=== PATIENT | female | born 1940 | race Caucasian/White ===

== ENCOUNTER 2022-01-18 14:04 | Outpatient (CLI) | payer MEDICARE, SELFPAY ==
--- NOTE | ~2022-01-18 | MM_ITS ---
EXAMINATION: MM screening michelle BI w kristine HISTORY: Screening TECHNIQUE: Craniocaudal and mediolateral oblique 3-D tomosynthesis images were obtained and synthetic 2-D images were generated. CAD analysis was submitted and interpreted. COMPARISON: 08/19/2019 BREAST PARENCHYMAL COMPOSITION: There are scattered areas of fibroglandular density. FINDINGS: There is no evidence of suspicious mass, calcification, or architectural distortion to sugg est malignancy in either breast. There has been no suspicious interval change. IMPRESSION: 1. No mammographic evidence of malignancy. 2. Recommend routine screening mammography in one year. BI-RADS Category 1: Negative Reviewed, dictated and finalized at location A. [facility]
== END 2022-01-18 14:05 | disposition home or self-care (01) ==
LOC: ANHIMG 14:05
PROVIDERS: PCP Internal Medicine; Visit Provider Clinical Nurse Specialist
DX: Z12.31 Encounter for screening mammogram for malignant neoplasm of breast (principal)
CPT/HCPCS: 77063; 77067

== ENCOUNTER 2023-03-12 08:46 | Outpatient (CLI) | payer MEDICARE, SELFPAY ==
[2023-03-12 15:12] LABS: Basophils Absolute Auto 0.1 K/mm3 (0.0-0.1); Basophils Percent Auto 0.9 % (0.2-1.2); Eosinophils Absolute Auto 0.3 K/mm3 (0-0.3); Eosinophils Percent Auto 3.2 % (0-4.4); Hemoglobin 14.5 g/dL (12.0-15.0); Immature Granulocyte Absolute 0.03 K/mm3 (0.00-0.031); Immature Granulocyte Percent A 0.4 % (0-0.5); Lymphocytes Absolute Auto 1.95 K/mm3 (0.9-3.2); Lymphocytes Percent Auto 25.2 % (18.3-44.2); Mean Corpuscular HGB Conc 30.9 g/dl (32-36); Mean Corpuscular Volume 100.4 fl (80-100); Mean Platelet Volume 12.1 fl (7.4-10.4); Monocytes Absolute Auto 0.9 K/mm3 (0.1-0.6); Monocytes Percent Auto 11.5 % (2.6-8.5); Neutrophils Absolute Auto 4.6 K/mm3 (1.3-6.7); Neutrophils Percent Auto 58.8 % (45.5-73.1); Platelet Count Result 255 k/mm3 (150-375); Red Blood Count 4.68 M/mm3 (4.2-5.4); Red Cell Distribution Width 14.1 % (11.5-14.5); White Blood Count 7.7 K/mm3 (4.5-10.0)
[2023-03-12 15:17] LABS: Alanine Aminotransferase 13 U/L (6-35); Albumin Level 4.4 g/dL (3.5-5.1); Alkaline Phosphatase 112 U/L (38-126); Anion Gap 7 mmol/L (8-16); Aspartate Amino Transferase 38 U/L (14-36); Bilirubin,Total 0.7 mg/dL (0.2-1.3); Blood Urea Nitrogen 19 mg/dL (7-17); Calcium 9.7 mg/dL (8.4-10.2); Carbon Dioxide 32 mmol/L (22-30); Chloride 104 mmol/L (98-107); Cholesterol 165 mg/dL (0-200); Estimated Glomerular Filt Rate > 60; Glucose 73 mg/dL (65-110); HDL Direct 37 mg/dL; Potassium 4.8 mmol/L (3.4-5.0); Sodium 143 mmol/L (137-145); Triglycerides 115 mg/dL (<150)
[2023-03-12 15:28] LABS: LDL Cholesterol Direct 103 mg/dL
[2023-03-12 15:56] LABS: Vitamin D 25 Hydroxy 65.6 ng/mL
== END 2023-03-12 08:47 | disposition home or self-care (01) ==
LOC: ANHGOSHLAB 08:47
PROVIDERS: PCP Internal Medicine; Visit Provider Clinical Nurse Specialist
DX: E55.9 Vitamin D deficiency, unspecified (principal); Z13.228 Encounter for screening for other metabolic disorders; I10 Essential (primary) hypertension; E78.00 Pure hypercholesterolemia, unspecified
CPT/HCPCS: 36415; 80053; 80061; 82306; 85025

== ENCOUNTER 2023-06-07 08:25 | Outpatient (CLI) | payer MEDICARE, SELFPAY ==
--- NOTE | 2023-06-07 08:51 | ECHO_ITS ---
Patient Info Name: Rosalba Paz Age: 83 years : 1940 Gender: Female Ht: 64 in Wt: 180 lbs BSA: 1.95 m2 HR: 81 bpm BP: 172 / 109 mmHg Heart Rhythm: Indeterminant Technical Quality: Good Exam Date: 06/07/2023 9:02 AM Exam Location: [facility] Patient Status: Outpatient Admit Date: 06/07/2023 Staff Ordering Physician: Aruna Santiago Training Associate: Ladan Melo RDCS Attending Provider: Aruna Santiago Referring Physician: Pamela ARAGON; Exam Type: CA echo doppler color flow Study Info Indications - Abn EKG Complete two-dimensional, color flow and Doppler transthoracic echocardiogram is performed. Summary 1. Complete two-dimensional, color flow and Doppler transthoracic echocardiogram is performed. 2. Normal appearing left and right ventricular size and systolic function. 3. Modestly enlarged left atrium. 4. Small amount of tricuspid insufficiency. 5. Remarkably normal appearing aortic and mitral valves given patient's age. Left Ventricle Left ventricular chamber dimension is normal. Left ventricular systolic function is normal, estimated at 65-70%. The left ventricular diastolic function is normal. Right Ventricle Right ventricular chamber dimension is normal. Left Atria Left atrial chamber dimension is mildly enlarged. Right Atria Right atrial chamber dimension is normal. Aortic Valve The aortic valve is normal. Pulmonic Valve The pulmonic valve is normal. Mitral Valve The mitral valve has normal leaflets. Tricuspid Valve The tricuspid valve leaflets are normal. There is mild tricuspid valve regurgitation. Pericardium/Pleural The pericardium appears normal. Aorta The aortic root size at the sinus of Valsalva is normal. Left Ventricular Outflow Tract Name Value Normal LVOT 2D LVOT Diameter 1.7 cm LVOT Doppler LVOT Peak Gradient 3 mmHg LVOT Mean Gradient 1 mmHg LVOT VTI 22 cm LVOT VTI/AV VTI Ratio 0.9 LVOT Stroke Volume 49 ml LVOT CO 2.9 l/min LVOT CI 1.5 l/min/m2 Pulmonic Valve Name Value Normal RVOT Doppler RVOT Peak Gradient 1 mmHg PV Doppler PV Peak Gradient 1 mmHg Mitral Valve Name Value Normal MV Doppler MV Decel Hubbard 434 cm/s2 MV PHT 46 ms MV Area (PHT) 4.8 cm2 4.0-5.0 MV Diastolic Function
== END 2023-06-07 08:26 | disposition home or self-care (01) ==
PROVIDERS: PCP Internal Medicine; Visit Provider Clinical Nurse Specialist
DX: I51.7 Cardiomegaly (principal); R60.0 Localized edema; R94.31 Abnormal electrocardiogram [ECG] [EKG]; Z86.79 Personal history of other diseases of the circulatory system
CPT/HCPCS: 93306

== ENCOUNTER 2023-12-06 12:49 | Emergency (ER) | payer MEDICARE, SELFPAY ==
[2023-12-06 12:53] VITALS: BP 151/81; PULSE 82; RESP 18; TEMP 36.4; O2SAT 99
[2023-12-06 17:24] LABS: Basophils Absolute Auto 0.1 K/mm3 (0.0-0.1); Basophils Percent Auto 0.7 % (0.2-1.2); Eosinophils Absolute Auto 0.2 K/mm3 (0-0.3); Eosinophils Percent Auto 1.6 % (0-4.4); Hematocrit 48.2 % (37.0-47.0); Immature Granulocyte Absolute 0.03 K/mm3 (0.00-0.031); Immature Granulocyte Percent A 0.3 % (0-0.5); Mean Corpuscular HGB Conc 31.1 g/dl (32-36); Mean Corpuscular Hemoglobin 30.6 pg (26-34); Mean Corpuscular Volume 98.4 fl (80-100); Mean Platelet Volume 11.6 fl (7.4-10.4); Monocytes Absolute Auto 0.8 K/mm3 (0.1-0.6); Monocytes Percent Auto 6.5 % (2.6-8.5); Neutrophils Percent Auto 77.9 % (45.5-73.1); Platelet Count Result 278 k/mm3 (150-375); Red Cell Distribution Width 13.2 % (11.5-14.5); White Blood Count 11.5 K/mm3 (4.5-10.0)
[2023-12-06 17:28] LABS: Appearance Urine Cloudy (Clear); Bacteria Urine 4+ /hpf; Bilirubin Urine Negative (Negative); Color Urine Yellow (Yellow); Glucose Urine UA Negative (Negative); Ketones Urine 1+ mg/dL (Negative); Leukocyte Esterase Ur 2+ LEU/UL (Negative); Nitrate Urine Negative (Negative); Protein Urine Trace mg/dL (Negative); RBC Urine 0-2 /hpf (0-2); Squamous Epithelial Cell Urine Many /hpf (Few); Urobilinogen Urine 0.2 mg/dL (<2.0); WBC Urine >100 /hpf
[2023-12-06 17:32] LABS: Add Urine Microscopic? YES
[2023-12-06 17:35] LABS: Alanine Aminotransferase 8 U/L (6-35); Albumin Level 4.3 g/dL (3.5-5.1); Alkaline Phosphatase 121 U/L (38-126); Anion Gap 11 mmol/L (8-16); Aspartate Amino Transferase 30 U/L (14-36); Bilirubin,Total 0.8 mg/dL (0.2-1.3); Blood Urea Nitrogen 21 mg/dL (7-17); Calcium 9.7 mg/dL (8.4-10.2); Carbon Dioxide 24 mmol/L (22-30); Chloride 105 mmol/L (98-107); Estimated CRCL calculation 56 ml/min; Estimated Glomerular Filt Rate > 60; Glucose 105 mg/dL (65-110); Lipase 44 U/L (23-300); Potassium 4.6 mmol/L (3.4-5.0); Sodium 140 mmol/L (137-145)
--- NOTE | 2023-12-06 17:38 | ED.BACK ---
HPI - Back Pain/Injury General Chief Complaint: Back Pain/Injury Stated Complaint: back pain Time Seen by Provider: 12/06/23 15:43 History of Present Illness HPI Narrative: Patient is an 83-year-old female who presents ER with right-sided flank pain. Ongoing for last 3 days. Sharp and feels like it is in the rib. No difficulty with breathing. Unsure if it is associated with eating or drinking but she know she has history of gallstones as concerns of may be related. No diarrhea. She has had some dark urine but no urinary frequency urgency or dysuria. Related Data Allergies Allergy/AdvReac Type Severity Reaction Status Date / Time No Known Allergies Allergy Unverified 05/08/23 10:24 Review of Systems Review of Systems: All systems reviewed & are unremarkable except as noted in HPI and below Constitutional: Constitutional: Reports no additional constitutional complaints ENT: Reports system reviewed and no additional complaints, except as documented Cardiovascular: Cardiovascular: Reports no additional cardiovascular complaints Respiratory: Respiratory: Reports no additional respiratory complaints Gastrointestinal: Gastrointestinal: Reports no additional gastrointestinal complaints Genitourinary: Genitourinary: Reports no additional female genitourinary complaints PMF Past Medical History Medical History Hypercholesterolemia Hyperkalemia Hyperlipidemia Hypertension Post-menopausal Vaginal prolapse 2012 Surgical History Surgical History H/O: hysterectomy 1999 History of bladder surgery Bladder sling 1988 History of colon resection 1999 Family History Family History Mother Patient's mother is Sibling Acute myocardial infarction Father Acute myocardial infarction Social History Social History Smoking status: Never smoker Alcohol intake: never Lack of Transportation: No Lack of Food: Never True Current Housing: I Have Housing Concerned About Future Housing: No Difficulty Paying Gas/Electric Bills: No Difficulty Paying for Meds: No Currently Unemployed: No Education: High School Diploma/GED Difficulty w/ Childcare or Family Care: No Exam Narrative: GENERAL: Well-appearing, well-nourished, and in no acute distress. HEAD: Normocephalic, atraumatic. ENT: Mucous membranes moist. CHEST: Clear to auscultation. No respiratory distress. HEART: Regular rate and rhythm. Normal peripheral pulses. ABDOMEN: Soft, nontender, nondistended. Right-sided CVA tenderness. EXTREMITIES: Normal range of motion. No edema. SKIN: Warm, dry, no rash. No shingles rash. NEURO: Alert and oriented x3. PSYCH: Normal mood and affect. Course Course Emergency Course: D-dimer age adjusted and is unlikely for repeat EEG. Patient likely with pyelonephritis given abnormal urinalysis, elevated white count, and CVA tenderness. Educated patient on treatment plan. Will receive IM ceftriaxone here as her pharmacy not be opened this evening. Vital Signs Vital signs: Vital Signs Temperature 97.6 F 12/06/23 12:53 Pulse Rate 82 12/06/23 12:53 Respiratory Rate 18 12/06/23 12:53 Blood Pressure 151/81 H 12/06/23 12:53 Pulse Oximetry 99 12/06/23 12:53 Temperature 97.6 F 12/06/23 12:53 Pulse Rate 82 12/06/23 12:53 Respiratory Rate 18 12/06/23 12:53 Blood Pressure 151/81 H 12/06/23 12:53 Pulse Oximetry 99 12/06/23 12:53 MDM - Back Pain/Injury Lab Data 12/06/23 17:15 12/06/23 17:15 Labs: Lab Results 12/06/23 Range/Units 17:15 WBC 11.5 H (4.5-10.0) K/mm3 RBC 4.90 (4.2-5.4) M/mm3 Hgb 15.0 (12.0-15.0) g/dL Hct 48.2 H (37.0-47.0) % MCV 98.4 (80-100) fl MCH
[2023-12-06 17:40] LABS: D Dimer 0.64 ug/mL (<0.48)
[2023-12-06] MEDS: cefTRIAXone 1 GM VIAL IM (18:58)
[2023-12-06] MEDS: LIDOCAINE HCL 1% LOCAL INJ 10 ML VIAL (18:58)
[2023-12-06 19:34] VITALS: BP 148/84; PULSE 85; RESP 16; O2SAT 98
== END 2023-12-06 19:35 | disposition home or self-care (01) ==
PROVIDERS: Emergency Provider Emergency Medicine; PCP Internal Medicine
DX: N12 Tubulo-interstitial nephritis, not specified as acute or chronic (principal); E78.00 Pure hypercholesterolemia, unspecified; I10 Essential (primary) hypertension; Z90.710 Acquired absence of both cervix and uterus; Z90.49 Acquired absence of other specified parts of digestive tract
CPT/HCPCS: 36415; 80053; 81001; 83690; 85025; 85380; 87077; 87086; 87186; 96372; 99283; J0696

== ENCOUNTER 2024-01-07 13:10 | Outpatient (CLI) | payer MEDICARE, SELFPAY ==
[2024-01-07 18:45] LABS: Appearance Urine Clear (Clear); Bacteria Urine None Seen /hpf; Bilirubin Urine Negative (Negative); Blood Urine Negative (Negative); Color Urine Yellow (Yellow); Glucose Urine UA Negative (Negative); Ketones Urine Negative (Negative); Leukocyte Esterase Ur 2+ LEU/UL (Negative); Nitrate Urine Negative (Negative); Non Pathogenic Casts 0-2; Protein Urine Negative (Negative); RBC Urine 0-2 /hpf (0-2); Specific Grav Ur 1.005 (1.001-1.035); Squamous Epithelial Cell Urine Few /hpf (Few); Urobilinogen Urine 0.2 mg/dL (<2.0); pH Urine 5.5 (5.0-9.0)
[2024-01-07 18:58] LABS: Add Urine Microscopic? YES
[2024-01-07 19:14] LABS: Basophils Absolute Auto 0.1 K/mm3 (0.0-0.1); Basophils Percent Auto 0.8 % (0.2-1.2); Eosinophils Absolute Auto 0.3 K/mm3 (0-0.3); Eosinophils Percent Auto 3.4 % (0-4.4); Hematocrit 47.5 % (37.0-47.0); Hemoglobin 14.7 g/dL (12.0-15.0); Immature Granulocyte Absolute 0.03 K/mm3 (0.00-0.031); Immature Granulocyte Percent A 0.4 % (0-0.5); Lymphocytes Absolute Auto 2.28 K/mm3 (0.9-3.2); Mean Corpuscular HGB Conc 30.9 g/dl (32-36); Mean Corpuscular Hemoglobin 30.5 pg (26-34); Mean Corpuscular Volume 98.5 fl (80-100); Mean Platelet Volume 11.4 fl (7.4-10.4); Monocytes Absolute Auto 0.8 K/mm3 (0.1-0.6); Neutrophils Percent Auto 59.4 % (45.5-73.1); Platelet Count Result 298 k/mm3 (150-375); Red Blood Count 4.82 M/mm3 (4.2-5.4); Red Cell Distribution Width 13.6 % (11.5-14.5); White Blood Count 8.5 K/mm3 (4.5-10.0)
== END 2024-01-07 13:11 | disposition home or self-care (01) ==
PROVIDERS: PCP Clinical Nurse Specialist; Visit Provider Clinical Nurse Specialist
DX: N30.00 Acute cystitis without hematuria (principal); D72.829 Elevated white blood cell count, unspecified
CPT/HCPCS: 36415; 81001; 85025; 87086

== ENCOUNTER 2024-01-22 08:38 | Day surgery (SDC) | payer MEDICARE, SELFPAY ==
[2024-01-06 09:51] VITALS: BMI 28.0
[2024-01-22 10:10] VITALS: BP 126/80; PULSE 85; RESP 20; TEMP 36.2; O2SAT 96
[2024-01-22] MEDS: LACTATED RINGERS 1,000 ML 150 ML IV CONT (10:45)
--- NOTE | 2024-01-22 11:21 | PM.HPGS ---
History of Present Illness History of Present Illness Consent: Risks, benefits, and alternatives have been discussed and questions answered. Patient agrees to proceed with procedure. Chief complaint: Dysphagia unspecified, Gerd w/o Esophagitis Narrative: Rosalba Paz is a 84 year old female presents for EGD. Patient reports she has had difficulty swallowing solid foods for several years. His ago it started. Solid foods will catch in the mid substernal portion the chest. Also breads will have difficulty passing. Ago she began taking Nexium for acid reflux. She noticed regurgitation at that time and some heartburn. Currently she denies any heartburn. Her weight has remained stable. She has had no bleeding. Family history is noncontributory. Review of Systems Review of Systems: Review of systems are noncontributory. [facility] Past Medical History Medical History Hypercholesterolemia Hyperkalemia Hyperlipidemia Hypertension Post-menopausal Vaginal prolapse 2012 Surgical History Surgical History H/O: hysterectomy 1999 History of bladder surgery Bladder sling 1988 History of colon resection 1999 Family History Family History Mother Patient's mother is Sibling Acute myocardial infarction Father Acute myocardial infarction Social History Social History Smoking status: Never smoker Alcohol intake: never Alcohol use details: 2-3 glasses of wine per month Substance use type: does not use Lack of Transportation: No Lack of Food: Never True Current Housing: I Have Housing Concerned About Future Housing: No Difficulty Paying Gas/Electric Bills: No Difficulty Paying for Meds: No Currently Unemployed: No Education: High School Diploma/GED Difficulty w/ Childcare or Family Care: No Meds Home Medications and Allergies Home Medications Medication Instructions Recorded Confirmed Type metoprolol tartrate 25 mg tablet 25 mg PO BID #180 tabs 03/19/23 01/22/24 Rx simvastatin 10 mg tablet 10 mg PO DAILY #90 tabs 03/19/23 01/09/24 Rx esomeprazole magnesium 20 mg 20 mg PO DAILY 01/09/24 01/09/24 History capsule,delayed release (Nexium) Allergies Allergy/AdvReac Type Severity Reaction Status Date / Time No Known Allergies Allergy Verified 01/22/24 10:41 Vital Signs Vital Signs - 24 hr 01/22/24 10:10 Temperature 97.2 F L Pulse Rate 85 Respiratory Rate 20 Blood Pressure 126/80 Pulse Oximetry 96 Oxygen Delivery Room Air Exam Narrative: Physical exam reveals patient to be alert. Vital stable. HEENT exam is unremarkable. Patient is anicteric. Lungs are clear to auscultation and to percussion. Heart is without murmur extra sounds. Abdomen bowel sounds are present soft nontender with no organomegaly. Digital external rectal exam is normal. Assessment and Plan Assessment and plan (1) Difficulty swallowing: Code(s): R13.10 - Dysphagia, unspecified Status: Acute Assessment and Plan: Patient reports difficulty swallowing with food catching in the mid substernal portion the chest. These symptoms been present for 4 years. Plan for EGD to assess more thoroughly. She notices solids and liquids both seem to pass slowly. (2) Chronic GERD: Code(s): K21.9 - Gastro-esophageal reflux disease without esophagitis Status: Acute Assessment and Plan: Patient has been treated with Nexium for approximately 4-5 years for acid regurgitation. Currently denies any ongoing heartburn.
--- NOTE | 2024-01-22 11:39 | WPDANESEPPF ---
Anes - Initial Pre Proc Eval Procedure: Operation Date: 01/22/24 11:30 Proposed Procedures p Esophagogastroduodenoscopy - Marty Cast MD Date/Time: 01/22/24 11:39 Surgeon: Marty Cast MD Pre Op Diagnosis: Dysphagia unspecified, Gerd w/o Esophagitis Patient Data Age: 84 Gender: F Height: 1.68 m Weight: 81.4 kg Last Vital Signs Temp 36.2 C L 01/22/24 10:10 Pulse 85 01/22/24 10:10 Resp 20 01/22/24 10:10 BP 126/80 01/22/24 10:10 Pulse Ox 96 01/22/24 10:10 O2 Del Method Room Air 01/22/24 10:10 Allergies Allergy/AdvReac Type Severity Reaction Status Date / Time No Known Allergies Allergy Verified 01/22/24 10:41 Home Medications Medication Instructions Recorded Confirmed Type metoprolol tartrate 25 mg tablet 25 mg PO BID #180 tabs 03/19/23 01/22/24 Rx simvastatin 10 mg tablet 10 mg PO DAILY #90 tabs 03/19/23 01/09/24 Rx esomeprazole magnesium 20 mg 20 mg PO DAILY 01/09/24 01/09/24 History capsule,delayed release (Nexium) Patient hx anesthesia problems: none Family hx anesthesia problems: none Results Review: All pre-operative results and documents have been reviewed as part of the pre-operative evaluation. [facility] Past Medical History Medical History Hypercholesterolemia Hyperkalemia Hyperlipidemia Hypertension Post-menopausal Vaginal prolapse 2012 Surgical History Surgical History H/O: hysterectomy 1999 History of bladder surgery Bladder sling 1988 History of colon resection 1999 Family History Family History Mother Patient's mother is Sibling Acute myocardial infarction Father Acute myocardial infarction Social History Social History Smoking status: Never smoker Alcohol intake: never Alcohol use details: 2-3 glasses of wine per month Substance use type: does not use Lack of Transportation: No Lack of Food: Never True Current Housing: I Have Housing Concerned About Future Housing: No Difficulty Paying Gas/Electric Bills: No Difficulty Paying for Meds: No Currently Unemployed: No Education: High School Diploma/GED Difficulty w/ Childcare or Family Care: No Anes - Eval Final PreProcedure Day of Procedure 01/22/24 11:39 Patient weight: overweight Heart: regular rate and rhythm Lungs: clear to auscultation Airway: Mallampati scale class II Neurological: alert and oriented Last oral intake: >/= 8 hours ASA classification: III Emergent: no Anesthetic plan: proceed Anesthesia type and monitoring: general GIVS and standard monitoring Results Review: All pre-operative results and documents have been reviewed as part of the pre-operative evaluation. Informed Consent: The patient's anesthetic plan and its attendant risks and benefits were discussed with the patient/family/POA. Questions were solicited and answers provided to the satisfaction of the patient/family/POA.
[2024-01-22 12:43] VITALS: BP 103/69; PULSE 84; RESP 18; O2SAT 96
[2024-01-22 12:53] VITALS: BP 114/79; PULSE 83; RESP 18; O2SAT 95
[2024-01-22 13:03] VITALS: BP 128/81; PULSE 81; RESP 18; O2SAT 100
--- NOTE | 2024-01-22 13:08 | WPDANESPN ---
Anes - Prog Note Post-Op Date/Time: 01/22/24 13:08 Cardiovascular status: normal Respiratory status: normal Airway patency: baseline Mental status: baseline Post-Op hydration status: normal Vital Signs: Last Vital Signs Temp 36.2 C L 01/22/24 10:10 Pulse 81 01/22/24 13:03 Resp 18 01/22/24 13:03 BP 128/81 01/22/24 13:03 Pulse Ox 100 01/22/24 13:03 O2 Del Method Room Air 01/22/24 13:03 Pain Score (VAS): 0 I/O: Intake & Output 01/21/24 01/22/24 01/22/24 23:59 07:59 15:59 Intake Total 400 Balance 400 Patient Feedback: Patient satisfied with anesthetic care.
== END 2024-01-22 13:20 | disposition home or self-care (01) ==
PROVIDERS: PCP Clinical Nurse Specialist; Visit Provider Internal Medicine Gastroenterology
PROC: 0DJ08ZZ Inspection of Upper Intestinal Tract, Via Natural or Artificial Opening Endoscopic (ICD-10-PCS; CPT 43235; principal; 2024-01-22 11:30)
DX: R13.19 Other dysphagia (principal); Q39.4 Esophageal web; K44.9 Diaphragmatic hernia without obstruction or gangrene
CPT/HCPCS: 43249

== ENCOUNTER 2024-04-01 07:53 | Outpatient (CLI) | payer MEDICARE, SELFPAY ==
--- NOTE | ~2024-04-01 | XR_ITS ---
EXAMINATION: XR UGIAC w barium swallow DATE: 04/01/2024 08:53 INDICATION: Dysphagia. Hiatal hernia. TECHNIQUE: The patient drank thick barium, gas-producing crystals, and thin barium. Fluoroscopy of th e esophagus, stomach, and proximal small bowel was performed. Fluoroscopy exposure time was 0.6 minut es. The total number of images was 228. Total dose-area product was 1.914 Gy-cm^2. COMPARISON: CT abdomen 03/14/2017 FINDINGS: There is no mass or stricture of the esophagus. There is decreased primary and secondary es ophageal peristalsis. Abnormal tertiary waves are noted. Contrast stayed in the esophagus during pron e oblique positioning. There is a moderate-sized sliding hiatal hernia. The stomach and proximal smal l bowel show normal folding patterns. IMPRESSION: 1. Severe esophageal dysmotility. 2. Moderate-sized sliding hiatal hernia. Reviewed, dictated and finalized at location A.
== END 2024-04-01 07:54 | disposition home or self-care (01) ==
PROVIDERS: PCP Clinical Nurse Specialist; Visit Provider Surgery
DX: R13.10 Dysphagia, unspecified (principal); K44.9 Diaphragmatic hernia without obstruction or gangrene
CPT/HCPCS: 74246

== ENCOUNTER 2024-04-21 11:24 | Outpatient (CLI) | payer MEDICARE, SELFPAY ==
--- NOTE | 2024-04-21 11:42 | ECG_ITS ---
Test Date: 2024-04-21 11:52:45 Measurements Intervals [place] Rate: 82 P: 110 DE: 188 QRS: -43 QRSD: 102 T: 9 QT: 369 QTc: 433 Interpretive Statements SINUS RHYTHM WITH OCCASIONAL SUPRAVENTRICULAR PREMATURE COMPLEXES MARKED LEFT AXIS DEVIATION [QRS AXIS < -30] LOW QRS VOLTAGE IN PRECORDIAL LEADS [QRS DEFLECTION < 1.0 mV IN CHEST LEADS] POSSIBLE ANTERIOR MYOCARDIAL INFARCTION [30 ms Q WAVE IN V3/V4, OR R < 0.2 mV IN V4], PROBABLY OLD WARNING: DATA QUALITY MAY AFFECT INTERPRETATION No previous ECG available for comparison Electronically Signed On 04-21-2024 13:55:12 CDT by Grace Wharton M.D.
[2024-04-21 12:08] LABS: Hematocrit 44.7 % (37.0-47.0); Hemoglobin 14.1 g/dL (12.0-15.0)
== END 2024-04-21 11:25 | disposition home or self-care (01) ==
LOC: ANHSURGERY 11:28
PROVIDERS: Anesthesiology; PCP Clinical Nurse Specialist; Visit Provider Surgery
DX: K44.9 Diaphragmatic hernia without obstruction or gangrene (principal); I10 Essential (primary) hypertension; Z01.818 Encounter for other preprocedural examination
CPT/HCPCS: 36415; 85014; 85018; 86850; 86900; 86901; 93005

== ENCOUNTER 2024-04-30 14:18 | Observation (INO) | payer MEDICARE, SELFPAY ==
[2024-04-19 11:00] VITALS: BMI 29.7
--- NOTE | 2024-04-19 11:33 | PC.NURSE ---
Addendum entered by Terra Marrero RN 04/20/24 14:18: CLEAR LIQUID SUPPER NIGHT BEFORE SURGERY Original Note: Report to the Outpatient Waiting Room, entrance under the green pavilion located off [facility], at time __10:00AM on date __04/29/24 . Planned Procedure Time: __12:00PM . Time changes happen often and if your time is changed the preop area will call you the afternoon before. - You and your visitor will be asked to self-screen and do not enter if you have any COVID symptoms. - A mask is optional within the hospital at this time. Patients may have clear liquids (water, carbonated beverages, clear teas, apple juice) until 3 hours prior to surgery with a maximum of 20 ounces. - No food from midnight until time of surgery. Take the following medications with a SIP of water the morning of surgery: ____METOPROLOL DO NOT STOP ANY OF YOUR OTHER PRESCRIPTION MEDICATIONS PRIOR TO SURGERY ?EXCEPT THE FOLLOWING Medications to discontinue per physician NONE Date to take last dose Please no make-up, nail bermudian, hairspray, perfume, deodorant, or body powder the day of surgery. No jewelry (including any body piercings) or valuables the day of surgery, leave them at home. Please take a shower or bath the night before, or the morning of, surgery with an antibacterial soap. Wear comfortable, loose fitting clothing. - Jewelry must be removed prior to entering the operating room. Rings and piercings that are not removed may be cut off. - The hospital will not accept responsibility for valuables. - Please leave all valuables, including medications, at home the day of surgery. If you are going home after surgery, a licensed light truck driver must drive you home. - NO public transportation without another adult if you receive anesthesia. - We recommend that an adult stay with you for 24 hours following discharge. - We also recommend that you do not drive, make important decision, drink alcoholic beverages, or take any drugs that were not prescribed by your health care provider for at least 24 hours after your discharge time. Follow any additional instructions given to you from your surgeon. If you or anyone in your household have experienced Covid symptoms in the past week, please notify your surgeon or the nurse liaison at the phone number below for possible testing. Telephone instructions given to ___PATIENT and asked if any additional questions and then verbalized understanding. Patient advised to call surgeon office or pre surgery nurse liaison [phone] if any additional questions.
--- NOTE | 2024-04-26 08:43 | PM.IMHP ---
H&P: HPI History of Present Illness Date/Time: 04/26/24 08:43 Chief Complaint: GERD with dysphagia Narrative: Patient is a very spry 84-year-old woman who has had problems with gastroesophageal reflux for at least the last 3 years. It has been getting worse. She takes Nexium daily and this relieves her heartburn. However she is having a lot of problems with dysphagia and regurgitation. She had an EGD by Dr. Cast on 01/22/2024. This showed a large hiatal hernia with the gastroesophageal junction only 30 cm from the incisors. The esophagus itself was very tortuous within esophageal web noted. The esophagus was dilated but the patient continued to have problems with dysphagia. Patient was seen in my office in early March. She had a barium swallow upper GI which showed very tortuous esophagus with decreased peristalsis. Review of distant imaging shows the patient has had at least a moderate hiatal hernia for 10 years or more. She is taken to surgery now for laparoscopic repair of her large paraesophageal hiatal hernia with fundoplication. Review of Systems Review of Systems: All systems reviewed & are unremarkable except as noted in HPI and below (HPI) [facility] Past Medical History Medical History Hypercholesterolemia Hyperkalemia Hyperlipidemia Hypertension Post-menopausal Vaginal prolapse 2012 Surgical History Surgical History H/O: hysterectomy 1999 History of bladder surgery Bladder sling 1988 History of colon resection 1999 Family History Family History Mother Patient's mother is Sibling Acute myocardial infarction Father Acute myocardial infarction Social History Social History Smoking status: Never smoker Alcohol intake: current Alcohol use details: 2-3 glasses of wine per month Substance use type: does not use Do You Feel Safe in your Home?: Yes Lack of Transportation: No Lack of Food: Never True Current Housing: I Have Housing Concerned About Future Housing: No Difficulty Paying Gas/Electric Bills: No Difficulty Paying for Meds: No Currently Unemployed: No Education: High School Diploma/GED Difficulty w/ Childcare or Family Care: No Living arrangements: alone Spiritual care concerns: No Meds Home Medications and Allergies Home Medications Medication Instructions Recorded Confirmed Type esomeprazole magnesium 20 mg 20 mg PO DAILY 01/09/24 04/19/24 History capsule,delayed release (Nexium) metoprolol tartrate 25 mg tablet 25 mg PO BID #180 tabs 03/19/24 04/19/24 Rx simvastatin 10 mg tablet 10 mg PO DAILY #90 tabs 03/19/24 04/19/24 Rx Allergies Allergy/AdvReac Type Severity Reaction Status Date / Time No Known Allergies Allergy Verified 04/19/24 10:59 Exam Const: General: comfortable, no acute distress, alert and awake HENMT: Head: normocephalic and atraumatic Mouth: Yes Normal oral and palatal mucosa present Eyes: Conjunctivae: conjunctivae normal Pupils: Equal, round and reactive pupils present EOM: EOMs intact bilaterally Neck: Neck: normal visual inspection, no lymphadenopathy and nontender Resp: Effort & Inspection: normal respiratory effort Auscultation: clear to auscultation bilaterally Cardio: Rate: regular rate Rhythm: regular rhythm Heart sounds: no gallops, no murmurs and no rubs GI: Inspection: non-distended and scar (Lower abdominal midline scar) GI Palp: Yes Soft to palpation, No Tenderness to palpation present (GI), No Hepatomegaly present and No Splenomegaly present Skin: Lesions: no lesions Rashes: no rashes Neuro: General: no focal motor deficits and CN's II-XI intact bilaterally Cranial nerves: Yes Equal, round and reactive pupils present, Yes Bilaterally intact EOM p
[2024-04-29] VITALS (18 sets, daily range): BP systolic 108–141; BP diastolic 64–88; PULSE 85–96; RESP 16–19; TEMP 36.2–36.6; O2SAT 93–99
--- NOTE | 2024-04-29 11:20 | WPDANESEPPF ---
Anes - Initial Pre Proc Eval Procedure: Operation Date: 04/29/24 12:00 Proposed Procedures p Laparoscopic Walter Fundoplication Hiatal Hernia Repair - Ibrahima Hernandez MD Date/Time: 04/29/24 11:20 Surgeon: Ibrahima Hernandez MD Pre Op Diagnosis: paraesophageal hiatal hernia Patient Data Age: 84 Gender: F Height: 1.65 m Weight: 79.8 kg Last Vital Signs Temp 36.2 C L 04/29/24 10:00 Pulse 93 04/29/24 10:00 Resp 18 04/29/24 10:00 BP 108/87 04/29/24 10:00 Pulse Ox 95 04/29/24 10:00 O2 Del Method Room Air 04/29/24 10:00 Allergies Allergy/AdvReac Type Severity Reaction Status Date / Time No Known Allergies Allergy Verified 04/19/24 10:59 Home Medications Medication Instructions Recorded Confirmed Type esomeprazole magnesium 20 mg 20 mg PO DAILY 01/09/24 04/29/24 History capsule,delayed release (Nexium) metoprolol tartrate 25 mg tablet 25 mg PO BID #180 tabs 03/19/24 04/29/24 Rx simvastatin 10 mg tablet 10 mg PO DAILY #90 tabs 03/19/24 04/29/24 Rx Patient hx anesthesia problems: none Family hx anesthesia problems: none Results Review: All pre-operative results and documents have been reviewed as part of the pre-operative evaluation. [facility] Past Medical History Medical History Hypercholesterolemia Hyperkalemia Hyperlipidemia Hypertension Post-menopausal Vaginal prolapse 2012 Surgical History Surgical History H/O: hysterectomy 1999 History of bladder surgery Bladder sling 1988 History of colon resection 1999 Family History Family History Mother Patient's mother is Sibling Acute myocardial infarction Father Acute myocardial infarction Social History Social History Smoking status: Never smoker Alcohol intake: current Alcohol use details: 2-3 glasses of wine per month Substance use type: does not use Do You Feel Safe in your Home?: Yes Lack of Transportation: No Lack of Food: Never True Current Housing: I Have Housing Concerned About Future Housing: No Difficulty Paying Gas/Electric Bills: No Difficulty Paying for Meds: No Currently Unemployed: No Education: High School Diploma/GED Difficulty w/ Childcare or Family Care: No Living arrangements: alone Spiritual care concerns: No Anes - Eval Final PreProcedure Day of Procedure 04/29/24 11:20 Patient weight: overweight Heart: regular rate and rhythm Lungs: clear to auscultation Airway: Mallampati scale class II Neurological: alert and oriented Last oral intake: >/= 8 hours ASA classification: III Emergent: no Anesthetic plan: proceed Anesthesia type and monitoring: general ETT and standard monitoring Results Review: All pre-operative results and documents have been reviewed as part of the pre-operative evaluation. Informed Consent: The patient's anesthetic plan and its attendant risks and benefits were discussed with the patient/family/POA. Questions were solicited and answers provided to the satisfaction of the patient/family/POA.
--- NOTE | 2024-04-29 11:50 | WPDHPUPDATE1 ---
History and Physical Update Update Date/Time: 04/29/24 11:50 History and Physical has been reviewed, including an updated exam of the patient. There are NO changes in the patient's condition. Risks, benefits, and alternatives have been discussed and questions answered. Patient agrees to proceed with procedure.
[2024-04-29] MEDS: BUPIVACAINE/EPINEPHRINE 0.5% 10 ML VIAL 30 ML INFILTRATE (12:14)
[2024-04-29] MEDS: ceFAZolin 2 GM/D5W 50 ML 2 GM/50 ML BAG IVPB (12:28)
[2024-04-29] MEDS: LACTATED RINGERS 1,000 ML 30 ML IV CONT ×2 (15:12)
--- NOTE | 2024-04-29 15:34 | W.PM.PROC2 ---
Procedure Note - Detailed Date of Procedure 04/29/24 Pre-op Diagnosis paraesophageal hiatal hernia, GERD Post-op Diagnosis Same Procedure Performed Laparoscopic repair paraesophageal hiatal hernia, Walter fundoplication Surgeon Ibrahima Hernandez MD Senior Quantity Surveyor Ankita Carmen [facility] Anesthesia General and Local Indications Patient is an 84-year-old woman who has had a large hiatal hernia for quite some time. More recently she has had problems with dysphagia and regurgitation. Endoscopy showed that her esophagus was extremely tortuous due to the positioning of her stomach. This was also noted on the upper GI. She is taken to surgery now for laparoscopic repair paraesophageal hiatal hernia with Walter fundoplication. Findings Findings were essentially as expected. Her stomach was twisted and nearly all within the chest. Her esophagus was tortuous but was able to be dissected out to the upper mediastinum. No other significant findings were noted. Description of Procedure Patient was taken to surgery and induced into general anesthesia. The abdomen is prepped and draped. Trocars were placed in the usual fashion. The initial trocar was a 5 mm applied Medical optical trocar above the umbilicus just off the midline. All remaining trocars were placed under direct visualization. A right-sided epigastric incision was made and the Fatemeh self retaining retractor was then positioned and used to elevate the lateral segment of the left lobe of the liver such that the hiatal hernia and other epigastric structures could be visualized. We dissected the hepatogastric ligament initially leading up to the right laith. Right laith was dissected and then we entered the mediastinum carefully dissecting inside the right laith and dividing hernia sac to expose the upper part of the stomach which had twisted around and was lower than the middle portion of the stomach. We continued this dissection and eventually were able to dissect the lower portion of the esophagus. We dissected across the anterior midline of the hiatus which gave us more visibility. We dissected quite a ways up the mediastinum on the right side in the esophagus freeing it as much as we could. Once we had done as much as possible from this approach, we pulled back the camera and instruments. The greater curvature of the stomach was then pulled up anteriorly and traction was placed on the greater omentum. The LigaSure which was used literally for all cautery is is a salomon and dissection was then used to divide the greater omentum from the greater curvature of the stomach. We proceeded up to the fundus of the stomach. These short gastric vessels were divided with the LigaSure as well. Eventually her knee attachments just inside the mediastinum were found and dissected free from the left laith but left attached to the stomach. We divided all the remaining attachments of the hiatal hernia to the left laith so that it was completely free. We also dissected up on the patient's left side of the esophagus and freed the esophagus from adhesions well up into the upper mediastinum. No bleeding was encountered with any of this dissection. We then exposed the hernia sac. Again using the LigaSure, the hernia sac was divided from the upper stomach. The sac was placed in an Endo-Catch bag and retrieved from 1 of the upper abdominal 10 11 ports. This port was then replaced. We placed a Gonvick drain around the distal esophagus at the gastroesophageal junction. The Herman ends were ligated with a Vicryl endoloop. Then with some traction on the Herman we continued to reviewed the mediastinum and dissected out all the esophagus we safely could dissect freeing it from additional adhesions. At this point, it appeared we had 6-8 cm of intra-abdominal esophagus. With traction on the Herman drain, I closed the hiatal hernia with interrupted suture of 0 Ethibond using the Endo Stitch device. After closure, I created the fundop
[2024-04-29] MEDS: fentaNYL CITRATE INJ (*CRX) 100 MCG/2 ML VIAL 25 MCG IV PUSH ×8 (15:36→16:35)
--- NOTE | 2024-04-29 17:04 | ADMGEN ---
This patient, Rosalba Paz, was admitted to 2 Medical Room 251-01. Patient/family oriented to hospital policies and general routines including ID bracelet, bed and alarms, visiting hours, pain management, procedures, bathroom and other care routines, personal items, smoking policy, room service/diet, and visiting hours. Information on how to activate the Rapid Response Team has been discussed. Patient/Family are encouraged to report perceived risks to care and to ask questions if they do not understand what they are told or what they should do.
[2024-04-29] MEDS: ONDANSETRON INJ 4 MG/2 ML VIAL IV PUSH (17:21)
[2024-04-29] MEDS: METOPROLOL TARTRATE INJ 5 MG/5 ML VIAL IV PUSH (18:09)
[2024-04-29] MEDS: fentaNYL CITRATE INJ (*CRX) 100 MCG/2 ML VIAL 12.5 MCG IV PUSH (20:07)
[2024-04-29] MEDS: PROCHLORPERAZINE EDISYLATE 10 MG/2 ML VIAL IM (20:08)
[2024-04-29] MEDS: ENOXAPARIN 30 MG/0.3 ML SYRINGE SUB-Q (21:04)
[2024-04-29] MEDS: METOPROLOL TARTRATE 25 MG TABLET PO (21:05)
[2024-04-29] MEDS: SENNA/DOCUSATE SODIUM TABLET 2 TAB PO (21:05)
[2024-04-30] VITALS (22 sets, daily range): BP systolic 109–142; BP diastolic 62–84; PULSE 78–100; RESP 16–20; TEMP 36.3–36.9; O2SAT 93–97
[2024-04-30] MEDS: METOPROLOL TARTRATE INJ 5 MG/5 ML VIAL IV PUSH ×5 (00:02→23:03)
[2024-04-30 05:27] LABS: Hematocrit 41.1 % (37.0-47.0); Hemoglobin 13.1 g/dL (12.0-15.0); Mean Corpuscular HGB Conc 31.9 g/dl (32-36); Mean Corpuscular Hemoglobin 31.6 pg (26-34); Mean Platelet Volume 11.1 fl (7.4-10.4); Platelet Count Result 215 k/mm3 (150-375); Red Blood Count 4.15 M/mm3 (4.2-5.4); Red Cell Distribution Width 13.4 % (11.5-14.5); White Blood Count 12.1 K/mm3 (4.5-10.0)
[2024-04-30 05:40] LABS: Anion Gap 9 mmol/L (4-12); Blood Urea Nitrogen 17 mg/dL (7-17); Calcium 8.7 mg/dL (8.4-10.2); Carbon Dioxide 24 mmol/L (22-30); Chloride 107 mmol/L (98-107); Estimated CRCL calculation 47 ml/min; Estimated Glomerular Filt Rate > 60; Glucose 109 mg/dL (65-110); Potassium 4.4 mmol/L (3.4-5.0); Sodium 140 mmol/L (137-145)
--- NOTE | 2024-04-30 08:03 | WPDANESPN ---
Anes - Prog Note Post-Op Date/Time: 04/30/24 08:03 Cardiovascular status: normal Respiratory status: normal Airway patency: baseline Mental status: baseline Post-Op hydration status: normal Vital Signs: Last Vital Signs Temp 36.3 C L 04/30/24 07:50 Pulse 87 04/30/24 07:50 Resp 16 04/30/24 07:50 BP 124/67 04/30/24 07:50 Pulse Ox 94 04/30/24 07:50 O2 Del Method Room Air 04/29/24 18:31 O2 Flow Rate 2 04/29/24 17:10 Pain Score (VAS): 01/17 I/O: Intake & Output 04/29/24 04/30/24 04/30/24 23:59 07:59 15:59 Intake Total 200 300 Output Total 500 Balance 200 -200 Laboratory Tests 04/30/24 05:08 04/30/24 05:08 04/30/24 05:08 WBC 12.1 H RBC 4.15 L Hgb 13.1 Hct 41.1 MCV 99.0 MCH 31.6 MCHC 31.9 L RDW 13.4 Plt Count 215 MPV 11.1 H Sodium 140 Potassium 4.4 Chloride 107 Carbon Dioxide 24 Anion Gap 9 BUN 17 Creatinine 0.80 Estim Creat Clear Calc 47 Estimated GFR > 60 Glucose 109 Calcium 8.7 Post-procedural complaints: nausea Patient Feedback: Patient satisfied with anesthetic care.
[2024-04-30] MEDS: METOPROLOL TARTRATE 25 MG TABLET PO ×2 (08:25→21:00)
[2024-04-30] MEDS: SIMVASTATIN 10 MG TABLET PO (08:26)
[2024-04-30] MEDS: ENOXAPARIN 40 MG/0.4 ML SYRINGE SUB-Q (08:26)
[2024-04-30] MEDS: polyethylene glycoL 3350 17 GM POWD.PACK PO (08:27)
--- NOTE | 2024-04-30 09:16 | PM.PNGS ---
Progress Note: A&P Assessment and Plan (1) Paraesophageal hiatal hernia: Code(s): K44.9 - Diaphragmatic hernia without obstruction or gangrene Status: Chronic Assessment and Plan: Had a rough afternoon and early evening yesterday with pain and some regurgitation. This has resolved. She is tolerating clear liquids fairly. Discomfort much improved. She has already been up in a chair this morning for 3 hours per patient. Will advance to full liquids and ambulate today. Doing well at this point. (2) History of supraventricular tachycardia: Code(s): Z86.79 - Personal history of other diseases of the circulatory system Status: Chronic Assessment and Plan: No significant tachycardia postoperatively. Continue to monitor rhythm on 3rd med surge. Continue low beta wall. Subjective Subjective Date/Time Seen: 04/30/24 09:16 Post Op day: 1 Patient reports: no new complaints, feels better (Much better this morning. Had some chest pain, shoulder pain, and regurgitation last night. This has resolved. Patient was up in the chair for 3 hours already this morning.), pain is less, no bowel movement and afebrile Review of Systems Review of Systems: All systems reviewed & are unremarkable except as noted in HPI and below (HPI) Exam Const: General: comfortable and no acute distress Orientation/consciousness: patient oriented x3 Resp: Effort & Inspection: normal respiratory effort Auscultation: no crackles, no wheezes, diminished lung sounds on the left in the lower lung langley and No rub present Cardio: Rate: regular rate Rhythm: regular rhythm GI: Inspection: non-distended and incision (Dry and healing) GI Palp: Yes Soft to palpation, Yes Tenderness to palpation present (GI) (Upper abdomen), No Guarding due to palpation present (GI) and No Rebound tenderness present Neuro: General: patient oriented x3 and no focal motor deficits Extrem: General: no calf tenderness and no edema Psych: Affect: normal affect Insight: Good insight present (Psych) Judgement: Good judgement present (Psych) Objective Data Vital Signs Vital Signs: Vital Signs - 24 hr 04/29/24 10:00 04/29/24 15:12 04/29/24 15:25 Temperature 36.2 C L 36.6 C Pulse Rate 93 94 88 Respiratory Rate 18 19 18 Blood Pressure 108/87 141/69 H 122/74 Pulse Oximetry 95 95 97 Oxygen Delivery Room Air Simple Face Mask Simple Face Mask Oxygen Flow Rate 8 8 04/29/24 15:40 04/29/24 15:55 04/29/24 16:10 Temperature Pulse Rate 87 85 88 Respiratory Rate 16 16 16 Blood Pressure 118/80 117/70 113/75 Pulse Oximetry 93 93 95 Oxygen Delivery Nasal Cannula Nasal Cannula Nasal Cannula Oxygen Flow Rate 2 2 2 04/29/24 16:25 04/29/24 16:40 04/29/24 16:50 Temperature Pulse Rate 87 86 86 Respiratory Rate 18 16 16 Blood Pressure 118/64 140/81 125/80 Pulse Oximetry 94 99 97 Oxygen Delivery Nasal Cannula Nasal Cannula Nasal Cannula Oxygen Flow Rate 2 2 3 04/29/24 18:09 04/29/24 17:10 04/29/24 18:31 Temperature Pulse Rate 95 Respiratory Rate Blood Pressure Pulse Oximetry 98 96 Oxygen Delivery Nasal Cannula Room Air Oxygen Flow Rate 2 04/29/24 16:53 04/29/24 17:35 04/29/24 18:05 Temperature 36.4 C 36.4 C 36.4 C Pulse Rate 88 88 88 Respiratory Rate 18 18 16 Blood Pressure 141/82 H 140/88 133/88 Pulse Oximetry 96 98 96 Oxygen Delivery Oxygen Flow Rate 04/29/24 21:05 04/29/24 20:00 04/29/24 23:01 Temperature 36.6 C Pulse Rate 96 93 87 Respiratory Rate 16 Blood Pressure 131/77 Pulse Oximetry 95 Oxygen Delivery Oxygen Flow Rate 04/30/24 00:02 04/30/24 00:06 04/30/24 00:00 Temperature 36.6 C Pulse Rate 90 90 90 Respiratory Rate 16 Blood Pressure 114/76 Pulse Oximetry 94 Oxygen Delivery Oxygen Flow Rate 04/30/24 04:00 04/30/24 06:33 04/30/24 05:40 Temperature 36.6 C Pulse Rate 85 88 87 Respiratory Rate 16 Blood Pressure 109/64 Pulse Oximetry
--- NOTE | 2024-04-30 10:22 | PCDIET ---
Physician consult for low fiber diet. See Nutritional Teaching Intervention. Thank you for the consult.
[2024-04-30] MEDS: SENNA/DOCUSATE SODIUM TABLET 2 TAB PO (21:00)
[2024-04-30] MEDS: IBUPROFEN IV 800 MG/200 ML 800 MG/200 ML BAG 400 MG IVPB (21:07)
[2024-05-01] VITALS (14 sets, daily range): BP systolic 114–142; BP diastolic 56–72; PULSE 74–95; RESP 16–20; TEMP 36.1–37.1; O2SAT 90–95
[2024-05-01 04:39] LABS: Hematocrit 38.8 % (37.0-47.0); Hemoglobin 12.5 g/dL (12.0-15.0); Mean Corpuscular HGB Conc 32.2 g/dl (32-36); Mean Corpuscular Hemoglobin 31.4 pg (26-34); Mean Corpuscular Volume 97.5 fl (80-100); Platelet Count Result 206 k/mm3 (150-375); Red Blood Count 3.98 M/mm3 (4.2-5.4); Red Cell Distribution Width 13.4 % (11.5-14.5); White Blood Count 10.9 K/mm3 (4.5-10.0)
[2024-05-01 04:48] LABS: Anion Gap 3 mmol/L (4-12); Blood Urea Nitrogen 11 mg/dL (7-17); Calcium 8.7 mg/dL (8.4-10.2); Carbon Dioxide 28 mmol/L (22-30); Chloride 107 mmol/L (98-107); Estimated CRCL calculation 53 ml/min; Estimated Glomerular Filt Rate > 60; Glucose 99 mg/dL (65-110); Potassium 3.8 mmol/L (3.4-5.0); Sodium 138 mmol/L (137-145)
[2024-05-01] MEDS: METOPROLOL TARTRATE INJ 5 MG/5 ML VIAL IV PUSH ×2 (05:51→12:39)
[2024-05-01] MEDS: METOPROLOL TARTRATE 25 MG TABLET PO ×2 (08:45→20:54)
[2024-05-01] MEDS: ENOXAPARIN 40 MG/0.4 ML SYRINGE SUB-Q (08:46)
[2024-05-01] MEDS: polyethylene glycoL 3350 17 GM POWD.PACK PO (08:46)
[2024-05-01] MEDS: SIMVASTATIN 10 MG TABLET PO (08:46)
--- NOTE | 2024-05-01 14:39 | PM.PNGS ---
Progress Note: A&P Assessment and Plan (1) Paraesophageal hiatal hernia: Code(s): K44.9 - Diaphragmatic hernia without obstruction or gangrene Status: Chronic Assessment and Plan: Doing very well now 2 days following repair of a very large paraesophageal hiatal hernia with Walter fundoplication. Will advance diet to low-fiber. Continue ambulation. Possibly home tomorrow if more steady on her feet and pain remains controlled. (2) History of supraventricular tachycardia: Code(s): Z86.79 - Personal history of other diseases of the circulatory system Status: Chronic Assessment and Plan: Stop IV metoprolol but continue p.o.. Continue to monitor heart rate but no tachycardia he thus far. Subjective Subjective Date/Time Seen: 05/01/24 14:39 Patient reports: no new complaints, feels better (Very minimal swallowing problems or dysphagia), tolerating liquids well and afebrile Interval history: Still unsteady on her feet when walking in the hallway. Exam Const: General: cooperative, comfortable, alert and awake Nutritional Appearance: well nourished Orientation/consciousness: No confusion GI: Inspection: non-distended and incision (Dry and healing well) GI Palp: Yes Soft to palpation, Yes Tenderness to palpation present (GI) (Upper abdomen), No Guarding due to palpation present (GI), No Hernia present, No Palpable mass present and No Ascites present Objective Data Vital Signs Vital Signs: Vital Signs - 24 hr 04/30/24 16:00 04/30/24 18:48 04/30/24 18:50 Temperature Pulse Rate 100 91 91 Respiratory Rate Blood Pressure 128/62 Pulse Oximetry Oxygen Delivery 04/30/24 16:00 04/30/24 20:02 04/30/24 21:00 Temperature 36.9 C 36.7 C Pulse Rate 86 82 83 Respiratory Rate 20 17 Blood Pressure 135/84 137/73 Pulse Oximetry 94 97 Oxygen Delivery 04/30/24 20:50 04/30/24 23:03 04/30/24 20:00 Temperature Pulse Rate 83 90 78 Respiratory Rate 17 Blood Pressure Pulse Oximetry 97 Oxygen Delivery Room Air 05/01/24 00:04 05/01/24 04:00 05/01/24 04:00 Temperature 36.5 C Pulse Rate 84 89 83 Respiratory Rate 18 Blood Pressure 135/72 Pulse Oximetry 90 Oxygen Delivery 05/01/24 05:51 05/01/24 08:45 05/01/24 08:00 Temperature Pulse Rate 74 74 94 Respiratory Rate Blood Pressure Pulse Oximetry Oxygen Delivery 05/01/24 08:45 05/01/24 10:37 05/01/24 12:00 Temperature 36.7 C Pulse Rate 84 88 Respiratory Rate 20 Blood Pressure 127/68 Pulse Oximetry 95 Oxygen Delivery Room Air 05/01/24 12:39 Temperature Pulse Rate 93 Respiratory Rate Blood Pressure Pulse Oximetry Oxygen Delivery Intake/Output Intake/Output: Intake & Output 04/28/24 04/29/24 04/30/24 05/01/24 23:59 23:59 23:59 23:59 Intake Total 200 2382 180 Output Total 500 Balance 200 1882 180 Meds/Results Medications: Active Medications Generic Name Dose Route Start Last Admin Trade Name Freq PRN Reason Stop Dose Admin Acetaminophen 500 mg 04/29/24 16:53 Acetaminophen 500 Mg Tablet PO Q6H PRN Pain Rated 1-3 Diphenhydramine HCl 25 mg 04/29/24 16:53 Diphenhydramine Hcl Inj 50 Mg/Ml Vial IV PUSH Q6H PRN Itching Enoxaparin Sodium 40 mg 04/30/24 09:00 05/01/24 08:46 Enoxaparin 40 Mg/0.4 Ml Syringe SUB-Q 40 mg DAILY AKSHAT Administration Fentanyl Citrate 12.5 mcg 04/29/24 16:53 04/29/24 20:07 Fentanyl Citrate Inj (*Crx) 100 Mcg/2 Ml Vial IV PUSH 12.5 mcg Q2H PRN Administration Breakthrough Pain Rated 4-6 or NPO Fentanyl Citrate 25 mcg 04/29/24 16:53 Fentanyl Citrate Inj (*Crx) 100 Mcg/2 Ml Vial IV PUSH Q2H PRN Breakthrough Pain Rated 7-10 or NPO Ibuprofen 800 mg in 200 mls @ 400 mls/hr 04/29/24 16:53 04/30/24 21:07 Caldolor 800 Mg/200 Ml IVPB 400 mls/hr Q6H PRN Administration Breakthrough Pain Rated 1-3 or NPO Metoprolol Tartrat
[2024-05-01] MEDS: SENNA/DOCUSATE SODIUM TABLET 2 TAB PO (20:54)
[2024-05-02] VITALS: PULSE 94
[2024-05-02 04:00] VITALS: PULSE 101
[2024-05-02 08:00] VITALS: PULSE 107
[2024-05-02 08:25] VITALS: PULSE 101
[2024-05-02] MEDS: ENOXAPARIN 40 MG/0.4 ML SYRINGE SUB-Q (08:25)
[2024-05-02] MEDS: SIMVASTATIN 10 MG TABLET PO (08:25)
[2024-05-02] MEDS: METOPROLOL TARTRATE 25 MG TABLET PO (08:25)
[2024-05-02] MEDS: polyethylene glycoL 3350 17 GM POWD.PACK PO (08:26)
--- NOTE | 2024-05-02 11:05 | PM.DS ---
DS: Admitting Diagnosis Discharge Date 05/02/2024 Admitting Diagnosis Paraesophageal hiatal hernia Gastroesophageal reflux History SVT DS: Discharge Diagnosis Discharge Diagnosis (1) Paraesophageal hiatal hernia: Code(s): K44.9 - Diaphragmatic hernia without obstruction or gangrene Status: Chronic Assessment and Plan: Patient underwent laparoscopic repair paraesophageal hiatal hernia with Walter fundoplication on April [address] Hernandez. She had an uneventful recovery and was discharged on May 02, 2024. (2) Chronic GERD: Code(s): K21.9 - Gastro-esophageal reflux disease without esophagitis Status: Chronic Assessment and Plan: See above. Patient will continue her Nexium for about 2 weeks. Will discontinue as an outpatient at her follow-up visit. (3) History of supraventricular tachycardia: Code(s): Z86.79 - Personal history of other diseases of the circulatory system Status: Chronic Assessment and Plan: No episodes of this during this admission. Patient was monitored her entire recovery period. DS: Summary Hospital Course Hospital Course: Patient is a very spry 84-year-old woman who has had problems with gastroesophageal reflux for at least the last 3 years. It has been getting worse. She takes Nexium daily and this relieves her heartburn. However she is having a lot of problems with dysphagia and regurgitation. She had an EGD by Dr. Cast on 01/22/2024. This showed a large hiatal hernia with the gastroesophageal junction only 30 cm from the incisors. The esophagus itself was very tortuous within esophageal web noted. The esophagus was dilated but the patient continued to have problems with dysphagia. Patient was seen in my office in early March. She had a barium swallow upper GI which showed very tortuous esophagus with decreased peristalsis. Review of distant imaging shows the patient has had at least a moderate hiatal hernia for 10 years or more. She was taken to surgery on 04/29/[address] Hernandez and underwent laparoscopic repair of a large paraesophageal hiatal hernia under general anesthesia. Walter fundoplication was also performed. Patient did well following surgery. She was started on liquids and slowly advanced to low-fiber diet on 05/01/2024. She was requiring no prescription pain medication and tolerating her diet well. She is going to stay with her daughter. She is discharged today in good condition. She is experiencing no symptoms of reflux or heartburn. Status at Discharge Functional status at discharge: independent ambulation Overall status at discharge: patient is progressing back to baseline Time Spent with Patient Time attestation: Total time spent providing and/or coordinating discharge services: Time spent: Less than 30 minutes Discharge Plan Discharge Attending physician on discharge: Ibrahima Hernandez Discharging Clinician: Ibrahima Hernandez Anticipated Discharge Date/Time: 05/02/24 11:13 Patient Disposition: Home, Self-Care Activity: may shower, no straining and as tolerated Diet: low fiber Wound Care Instructions: incision open to air Discharge Instructions: 1. May shower or bathe, good to wash over incisions. 2. Call office for: -Wound increasingly painful or bleeding -Vomiting -Fever of greater than 101 degrees 3. Eat or drink very slowly, taking small bites or small swallows. Any food that requires chewing, chew it well. 4. If no bowel movement for three days, take 1 oz. (30 ml) Milk of Magnesia, if no results, take Fleets enema. 5. No heavy lifting > 15-20 pounds for 2 weeks. 6. No driving for 3 days or while taking narcotic pain medications. 7. Up walking 10-30 minutes three times per day. 8. Resume previous home medications. 9. Follow-up 10-14 days in office for wound check or as previously scheduled. 10. Take ibupr
== END 2024-05-02 11:40 | disposition home or self-care (01) ==
LOC: ANHSURGERY 14:34 → ANH2MED 14:34
PROVIDERS: Admitting Provider Surgery; PCP Clinical Nurse Specialist; Visit Provider Surgery
PROC: 0DV44ZZ Restriction of Esophagogastric Junction, Percutaneous Endoscopic Approach (ICD-10-PCS; CPT 43281; principal; 2024-04-29 12:00)
DX: K44.9 Diaphragmatic hernia without obstruction or gangrene (principal); K21.9 Gastro-esophageal reflux disease without esophagitis; I10 Essential (primary) hypertension; E78.00 Pure hypercholesterolemia, unspecified; Z90.49 Acquired absence of other specified parts of digestive tract; Z86.79 Personal history of other diseases of the circulatory system
CPT/HCPCS: 43280; 36415; 80048; 85014; 85018; 85027; 86850; 86900; 86901; 93005; A9270; G0378; J0690; J0780; J1100; J1650; J1741; J2371; J2405; J2704; J3010; J7120

== ENCOUNTER 2024-07-08 07:27 | Outpatient (CLI) | payer MEDICARE, SELFPAY ==
--- NOTE | 2024-07-08 07:34 | ECHO_ITS ---
Patient Info Name: Rosalba Paz Age: 84 years : 1940 Gender: Female Ht: 65 in Wt: 165 lbs BSA: 1.87 m2 HR: 62 bpm BP: 136 / 91 mmHg Technical Quality: Good Exam Date: 07/08/2024 7:44 AM Exam Location: Echo Lab Patient Status: Outpatient Admit Date: 07/08/2024 Staff Ordering Physician: Aruna Santiago Associate Of Science In Nursing: Mandie Caban RDCS Attending Provider: Aruna Santiago Referring Physician: Pamela ARAGON; Exam Type: CA echo doppler color flow Study Info Indications Z86.79 - PERSONAL HISTORY OF OTHER DISEASES OF CIRCULATORY Complete two-dimensional, color flow and Doppler transthoracic echocardiogram is performed. Summary 1. Complete two-dimensional, color flow and Doppler transthoracic echocardiogram is performed. 2. Left ventricular chamber dimension is normal. 3. Left ventricular systolic function is normal, estimated at 60-65%. 4. The left ventricular diastolic function is grade I diastolic dysfunction. 5. E/e' 8 is minimally elevated. 6. Global longitudinal strain is normal at -19.0%. 7. There is trace aortic valve regurgitation. 8. There is mild mitral valve regurgitation. 9. There is trace tricuspid valve regurgitation. 10. No pulmonary hypertension, estimated pulmonary arterial systolic pressure is 28 mmHg. 11. There is trace pulmonic regurgitation. Left Ventricle E/e' 8 is minimally elevated. Global longitudinal strain is normal at -19.0%. Left ventricular chamber dimension is normal. Left ventricular systolic function is normal, estimated at 60-65%. The left ventricular diastolic function is grade I diastolic dysfunction. Right Ventricle Right ventricular chamber dimension is normal. Right ventricular systolic function is normal. Left Atria Left atrial chamber dimension is normal. Right Atria Right atrial chamber dimension is normal. Aortic Valve The aortic valve is trileaflet. There is no aortic valve stenosis. There is trace aortic valve regurgitation. Pulmonic Valve There is trace pulmonic regurgitation. Mitral Valve There is no mitral valve stenosis. There is mild mitral valve regurgitation. Tricuspid Valve There is trace tricuspid valve regurgitation. No pulmonary hypertension, estimated pulmonary arterial systolic pressure is 28 mmHg. Pericardium/Pleural There is no pericardial effusion. Inferior Vena Cava Normal inferior vena cava with >50% collapse upon inspiration consistent with normal right atrial pressure, 5 mmHg. Aorta The aortic root size at the sinus of Valsalva is normal. Left Ventricular Outflow Tract Name Value Normal LVOT 2D LVOT Diameter 2.0 cm LVOT Doppler LVOT Peak Gradient 2 mmHg LVOT Mean Gradient 1 mmHg LVOT VTI 16 cm LVOT VTI/AV VTI Ratio 0.9 LVOT Stroke Volume 52 ml LVOT CO 2.9 l/min LVOT CI 1.5 l/min/m2 Pulmonic Valve Name Value Normal
== END 2024-07-08 07:28 | disposition home or self-care (01) ==
PROVIDERS: PCP Clinical Nurse Specialist; Visit Provider Clinical Nurse Specialist
DX: Z86.79 Personal history of other diseases of the circulatory system (principal); I10 Essential (primary) hypertension; I34.0 Nonrheumatic mitral (valve) insufficiency
CPT/HCPCS: 93306

== ENCOUNTER 2024-08-06 13:12 | Emergency (ER) | payer MEDICARE, SELFPAY ==
--- NOTE | ~2024-08-06 | CT_ITS ---
EXAMINATION: CTA chest PE protocol DATE: 08/06/2024 23:00 INDICATION: elevated HR, dyspnea (+) dimer TECHNIQUE: Computed tomography angiography (CTA) of the chest was performed with 100 mL Omnipaque-350 intravenous contrast timed to evaluate the pulmonary arteries. Coronal maximum intensity projection 3D-reconstructions were created by the technologist. The dose-length product (DLP) was 302.06 mGy-cm. Automated exposure control and iterative reconstruction technique were employed. COMPARISON: X-ray chest, same date. FINDINGS: Lung parenchyma and airways: Mild dependent atelectasis and septal thickening. Irregular 1.4 cm nodul ar opacity in the superior segment of the right lower lobe. Patent airways. Pleura: Unremarkable. Thoracic inlet, axillae and chest wall: Unremarkable. Thoracic aorta: No significant dilation. No dissection. Mild arch calcification. Mediastinum: Dilated central pulmonary arteries as can be seen with pulmonary arterial hypertension. Heart and pericardium: Cardiomegaly. Aortic valve calcification. No pericardial effusion. Coronary artery calcifications: Absent. Upper abdomen: Cholelithiasis. Simple right lobe liver cyst. Bilateral renal cortical thinning. Bilat eral parapelvic cysts. Small hiatal hernia. Mild distal esophageal and gastric wall edema. Large unco mplicated appearing duodenal diverticulum. Bones: No acute osseous finding. Pulmonary arteries: Study quality: Adequate. No pulmonary emboli detected. IMPRESSION: No CT evidence of acute pulmonary embolus. 1.4 cm nodular opacity in the superior segment of the right lower lobe, may reflect a focus of infect ion/inflammation. Recommend low-dose noncontrast CT follow-up in 3 months to exclude a persistent mas s. Mild interstitial edema. Mild esophagitis/gastritis. Reviewed, dictated and finalized at location K. IMPRESSION: No CT evidence of acute pulmonary embolus. 1.4 cm nodular opacity in the superior segment of the right lower lobe, may ref lect a focus of infection/inflammation. Recommend low-dose noncontrast CT follo w-up in 3 months to exclude a persistent mass. Mild interstitial edema. Mild esophagitis/gastritis.
--- NOTE | ~2024-08-06 | XR_ITS ---
EXAMINATION: XR chest 2V DATE: 08/06/2024 14:38 INDICATION: Supraventricular tachycardia TECHNIQUE: PA and lateral views of the chest were obtained. COMPARISON: None FINDINGS: Mild eventration along the right hemidiaphragm. Mild reticular pattern at the dependent lung bases wh ich could represent atelectasis or mild pulmonary edema. No pleural effusion or pneumothorax. The car diomediastinal silhouette is normal. Moderate to severe upper thoracic and lower cervical spondylosis . IMPRESSION: 1. Mild reticular pattern at the dependent lung base which could represent atelectasis or mild pulmon tayo edema. Reviewed, dictated and finalized at location A. IMPRESSION: 1. Mild reticular pattern at the dependent lung base which could represent atel ectasis or mild pulmonary edema.
[2024-08-06 13:14] VITALS: BP 124/74; PULSE 113; RESP 16; TEMP 36.7; O2SAT 98
--- NOTE | 2024-08-06 13:17 | ECG_ITS ---
Test Date: 2024-08-06 13:21:33 Measurements Intervals [place] Rate: 102 P: 127 AL: 153 QRS: -49 QRSD: 94 T: 70 QT: 306 QTc: 400 Interpretive Statements SINUS TACHYCARDIA LEFT ANTERIOR FASCICULAR BLOCK CONSIDER ANTERIOR INFARCT, AGE INDETERMINATE BASELINE ARTIFACT- I, II, III, AVR, AVL, AVF, V1-V6 ABNORMAL ECG Compared to ECG 04/21/2024 11:52:45 HEART RATE HAS INCREASED Electronically Signed On 08-06-2024 13:30:04 CDT by Milan Burns D.O.
[2024-08-06 13:32] LABS: Basophils Absolute Auto 0.1 K/mm3 (0.0-0.1); Basophils Percent Auto 0.7 % (0.2-1.2); Eosinophils Absolute Auto 0.1 K/mm3 (0-0.3); Eosinophils Percent Auto 1.6 % (0-4.4); Hematocrit 42.6 % (37.0-47.0); Hemoglobin 14.1 g/dL (12.0-15.0); Immature Granulocyte Absolute 0.02 K/mm3 (0.00-0.031); Immature Granulocyte Percent A 0.2 % (0-0.5); Lymphocytes Percent Auto 20.9 % (18.3-44.2); Mean Corpuscular HGB Conc 33.1 g/dl (32-36); Mean Corpuscular Volume 96.8 fl (80-100); Mean Platelet Volume 11.2 fl (7.4-10.4); Monocytes Absolute Auto 0.7 K/mm3 (0.1-0.6); Monocytes Percent Auto 8.6 % (2.6-8.5); Neutrophils Absolute Auto 5.8 K/mm3 (1.3-6.7); Platelet Count Result 239 k/mm3 (150-375); Red Cell Distribution Width 14.1 % (11.5-14.5); White Blood Count 8.6 K/mm3 (4.5-10.0)
[2024-08-06 13:42] LABS: Alanine Aminotransferase 8 U/L (6-35); Albumin Level 4.2 g/dL (3.5-5.1); Alkaline Phosphatase 82 U/L (38-126); Anion Gap 13 mmol/L (4-12); Aspartate Amino Transferase 22 U/L (14-36); Bilirubin,Total 0.7 mg/dL (0.2-1.3); Blood Urea Nitrogen 20 mg/dL (7-17); Calcium 9.1 mg/dL (8.4-10.2); Carbon Dioxide 24 mmol/L (22-30); Chloride 104 mmol/L (98-107); Estimated Glomerular Filt Rate 53; Glucose 131 mg/dL (65-110); Lipase 32 U/L (23-300); Potassium 3.8 mmol/L (3.4-5.0); Sodium 141 mmol/L (137-145)
[2024-08-06 13:43] LABS: INR 0.9; Prothrombin Time 12.6 Seconds (11.1-14.7)
[2024-08-06 13:44] LABS: Partial Thromboplastin Time 23.4 Seconds (22.3-36.8)
[2024-08-06 13:53] LABS: Troponin I < 0.012 ng/mL (0.000-0.034)
[2024-08-06 18:20] VITALS: BP 147/96; PULSE 126; RESP 20; O2SAT 100
--- NOTE | 2024-08-06 18:50 | ED.ARRPALP ---
HPI - Arrhythmia/Palpitations General Chief Complaint: Arrhythmia/Palpitations Stated Complaint: elevated HR Time Seen by Provider: 08/06/24 18:24 Source: patient Mode of arrival: ambulatory Limitations: no limitations History of Present Illness HPI narrative: This is a 84-year-old female with PMH of SVT who presents to the ED for chief complaint of elevated heart rate and dizziness while walking through the store today. They were at a department store and when she got to the back of the store, she started to feel hot flushed. Reports that she started to feel a little lightheaded but did not feel that she would pass out. Reports that she had a similar episode 7 years ago that was much worse, when they found as PT and had to cardiovert. She has been taking metoprolol b.i.d. ever since but they recently stopped the metoprolol due to her blood pressure is getting too low and causing orthostatic symptoms. Patient states that she did not have any associated chest pain but did have dyspnea during this episode today. Endorses intermittent mild leg swelling bilaterally but no leg pain. Denies fevers, chills, cough, back pain, numbness, weakness, LOC. Related Data Allergies Allergy/AdvReac Type Severity Reaction Status Date / Time No Known Allergies Allergy Verified 07/08/24 09:16 Review of Systems Review of Systems: All systems as dictated in HPI [facility] Past Medical History Medical History Hypercholesterolemia Hyperkalemia Hyperlipidemia Post-menopausal Vaginal prolapse 2012 Surgical History Surgical History H/O esophageal hernia repair Laparoscopic repair paraesophageal hiatal hernia, Walter fundoplication on 04/29/24 H/O: hysterectomy 1999 History of bladder surgery Bladder sling 1988 History of colon resection 1999 Family History Family History Mother Patient's mother is Sibling Acute myocardial infarction Father Acute myocardial infarction Social History Social History Smoking status: Never smoker Alcohol intake: current Alcohol use details: 2-3 glasses of wine per month Substance use: never Substance use type: does not use Do You Feel Safe in your Home?: Yes Lack of Transportation: No Lack of Food: Never True Current Housing: I Have Housing Concerned About Future Housing: No Difficulty Paying Gas/Electric Bills: No Difficulty Paying for Meds: No Currently Unemployed: No Education: High School Diploma/GED Difficulty w/ Childcare or Family Care: No Living arrangements: alone Spiritual care concerns: No Exam Narrative: GENERAL: Well-appearing, well-nourished, and in no acute distress. HEAD: Normocephalic, atraumatic. EYES: PERRLA and EOMI. ENT: Nares clear, no rhinorrhea or epistaxis. Mucous membranes moist. Oropharynx without tonsillar hypertrophy exudate or other lesions. NECK: Supple. No adenopathy or masses. CHEST: No respiratory distress. Clear to auscultation. No wheezes rales or rhonchi HEART: Regular rate and rhythm. No murmur heard. Normal peripheral pulses. ABDOMEN: Soft, nontender, nondistended, normal active bowel sounds. MSK: Normal range of motion. No edema. No calf tenderness SKIN: Warm, dry, no rash. NEURO: Alert and oriented x4. No focal deficits. PSYCH: Normal mood and affect. Course Vital Signs Vital signs: Vital Signs Temperature 98.0 F 08/06/24 13:14 Pulse Rate 113 H 08/06/24 13:14 Respiratory Rate 16 08/06/24 13:14 Blood Pressure 124/74 08/06/24 13:14 Pulse Oximetry 98 08/06/24 13:14 Oxygen Delivery Room Air 08/06/24 13:14 Temperature 97.6 F 08/06/24 19:01 Pulse Rate 88 08/06/24 23:27 Respiratory Rate 18 08/06/24 23:27 Bloo
[2024-08-06] MEDS: ASPIRIN 81 MG CHEWABLE TABLET 324 MG PO (18:56)
[2024-08-06 19:01] VITALS: BP 134/81; PULSE 78; RESP 25; TEMP 36.4; O2SAT 96
[2024-08-06 19:22] LABS: Troponin I < 0.012 ng/mL (0.000-0.034)
[2024-08-06 19:43] LABS: NT Pro B Type Natriuretic Pept 288 pg/mL (19.9-100)
[2024-08-06 20:22] LABS: D Dimer 0.67 ug/mL (<0.48)
[2024-08-06 20:38] LABS: Troponin I < 0.012 ng/mL (0.000-0.034)
[2024-08-06 22:24] VITALS: BP 117/95; PULSE 93; RESP 17; O2SAT 100
[2024-08-06 23:27] VITALS: BP 151/88; PULSE 88; RESP 18; O2SAT 96
== END 2024-08-07 00:15 | disposition home or self-care (01) ==
PROVIDERS: Preventive Medicine Aerospace Medicine; Emergency Provider Physician Assistant; PCP Clinical Nurse Specialist
DX: R06.00 Dyspnea, unspecified (principal); E78.5 Hyperlipidemia, unspecified
CPT/HCPCS: 36415; 71046; 71275; 80053; 83690; 83880; 84484; 85025; 85380; 85610; 85730; 93005; 99284; A9270; Q9967

== ENCOUNTER 2024-08-08 15:50 | Observation (INO) | payer MEDICARE, SELFPAY ==
[2024-08-08] VITALS (29 sets, daily range): BP systolic 120–144; BP diastolic 62–98; PULSE 61–127; RESP 12–30; TEMP 36.5; O2SAT 94–100
--- NOTE | ~2024-08-08 | XR_ITS ---
XR chest 2V Ordering provider: Ivan Jenkins MD History: 84 years Female with . sob with exertion, RAPID HEART RATE . Comparison: August 06, 2024 FINDINGS: MEDIASTINUM: The cardiac silhouette is not enlarged. LUNGS: No infiltrates, effusions or pneumothorax. OTHER: No free air under the diaphragm. Degenerative changes of the spine. IMPRESSION: No acute cardiopulmonary pathology. Reviewed, dictated and finalized at location A.
--- NOTE | ~2024-08-08 | XR_ITS ---
EXAMINATION: XR UGI wo kub DATE: 08/09/2024 14:04 INDICATION: Regurgitation. TECHNIQUE: The patient drank barium. Fluoroscopy of the esophagus, stomach, and proximal small bowel was performed. Fluoroscopy exposure time was 0.8 minutes. The total number of images was 280. Total d ose-area product was 2.315 Gy-cm^2. COMPARISON: Upper gastric intestinal series 04/01/2024 FINDINGS: There is no mass or stricture of the esophagus. There is decreased primary and secondary es ophageal peristalsis. Abnormal tertiary waves are noted. There are changes of fundoplication of the p roximal stomach. The proximal small bowel shows a normal folding pattern. IMPRESSION: 1. Severe esophageal dysmotility. Reviewed, dictated and finalized at location A.
--- NOTE | 2024-08-08 16:33 | ECG_ITS ---
Test Date: 2024-08-08 16:31:10 Measurements Intervals [place] Rate: 91 P: 117 AR: 142 QRS: -49 QRSD: 97 T: -4 QT: 344 QTc: 423 Interpretive Statements SINUS RHYTHM LOW QRS VOLTAGE IN PRECORDIAL LEADS LEFT ANTERIOR FASCICULAR BLOCK VOLTAGE CRITERIA FOR LVH CONSIDER ANTERIOR INFARCT, AGE INDETERMINATE BORDERLINE T WAVE ABNORMALITY- ANTEROLAT/INF LEADS BASELINE ARTIFACT- I, II, AVR, AVL, V1 ABNORMAL ECG Compared to ECG 08/06/2024 13:21:33 NO SIGNIFICANT CHANGE Electronically Signed On 08-09-2024 13:46:44 CDT by Milan Burns D.O.
--- NOTE | 2024-08-08 20:15 | ED.RECABL ---
HPI - Recheck/Abnormal Lab/Rx General Chief Complaint: Recheck/Abnormal Lab/Rx <HUSAM Morton Last Filed: 08/09/24 01:40> Stated Complaint: high heart rate <HUSAM Morton Last Filed: 08/09/24 01:40> Time Seen by Provider: 08/08/24 19:29 <HUSAM Morton Last Filed: 08/09/24 01:40> Source: patient, family and old records reviewed <HUSAM Morton Last Filed: 08/09/24 01:40> Mode of arrival: ambulatory <HUSAM Morton Filed: 08/09/24 01:40> Limitations: no limitations <HUSAM Morton Last Filed: 08/09/24 01:40> History of Present Illness HPI narrative: Patient is an 84 y/o female who presents the ED with report of abnormal heart rate. Patient reports she was seen in the ED here on Friday after a near syncopal episode while out shopping. She was having palpitations/tachycardia at that time. Seen and evaluated in the ED, overall reassuring workup, negative CTA PE study. Reports she was told to return if her heart rate became over 120. She states over the last few days she has had intermittent tachycardia with simple exertion. States her heart rate will increase up to the 140s at times with walking across the room. She does feel slightly short of breath with this. Denies chest pain. Denies dizziness, lightheadedness. Denies history of AFib. She does have history of SVT in 2017. Was recently taken off of her metoprolol due to orthostatic hypotension. Scheduled to see Cardiology September 09. <HUSAM Morton Last Filed: 08/09/24 01:40> Related Data Home Medications: Home Medications Medication Instructions Recorded Confirmed simvastatin 10 mg tablet 10 mg PO HS 08/09/24 08/09/24 <HUSAM Morton Last Filed: 08/09/24 01:40> Allergies/Adverse Reactions: Allergies Allergy/AdvReac Type Severity Reaction Status Date / Time No Known Allergies Allergy Verified 08/08/24 15:50 <Kimberlee Villanueva PA-C - Last Filed: 08/09/24 01:40> Review of Systems Review of Systems: All systems reviewed & are unremarkable except as noted in HPI. <Kimberlee Villanueva PA-C - Last Filed: 08/09/24 01:40> All systems reviewed & are unremarkable except as noted in HPI and below <Kimberlee Villanueva PA-C - Last Filed: 08/09/24 01:40> [facility] Past Medical History Medical History: Medical History Hypercholesterolemia Hyperkalemia Hyperlipidemia Post-menopausal Vaginal prolapse 2012 <Kimberlee Villanueva PA-C - Last Filed: 08/09/24 01:40> Surgical History Surgical History: Surgical History H/O esophageal hernia repair Laparoscopic repair paraesophageal hiatal hernia, Walter fundoplication on 04/29/24 H/O: hysterectomy 1999 History of bladder surgery Bladder sling 1988 History of colon resection 1999 <Kimberlee Villanueva PA-C - Last Filed: 08/09/24 01:40> Family History Family History: Family History (Updated 08/09/24 @ 01:09 by Cyndi Hernandez RN) Mother Patient's mother is Sibling Acute myocardial infarction Father No problems noted. <Kimberlee Villanueva PA-C - Last Filed: 08/09/24 01:40> Social History Social History: Social History Smoking status: Never smoker Alcohol intake: current Alcohol use details: 2-3 glasses of wine per month Substance use: never Substance use type: does not use Do You Feel Safe in your Home?: Yes Lack of Transportation: No Lack of Food: Never True Current Housing: I Have Housing Concerned About Future Housing: No Difficulty Paying Gas/Electric Bills: No Difficulty Paying for Meds: No Currently Unemployed: No Education: High School Dipl
[2024-08-08 20:38] LABS: Basophils Absolute Auto 0.1 K/mm3 (0.0-0.1); Basophils Percent Auto 0.7 % (0.2-1.2); Eosinophils Absolute Auto 0.2 K/mm3 (0-0.3); Eosinophils Percent Auto 2.7 % (0-4.4); Hematocrit 44.5 % (37.0-47.0); Hemoglobin 14.3 g/dL (12.0-15.0); Immature Granulocyte Absolute 0.02 K/mm3 (0.00-0.031); Immature Granulocyte Percent A 0.3 % (0-0.5); Lymphocytes Absolute Auto 2.05 K/mm3 (0.9-3.2); Mean Corpuscular HGB Conc 32.1 g/dl (32-36); Mean Corpuscular Hemoglobin 31.2 pg (26-34); Mean Corpuscular Volume 97.2 fl (80-100); Mean Platelet Volume 11.4 fl (7.4-10.4); Monocytes Absolute Auto 0.7 K/mm3 (0.1-0.6); Monocytes Percent Auto 10.1 % (2.6-8.5); Neutrophils Absolute Auto 4.3 K/mm3 (1.3-6.7); Neutrophils Percent Auto 58.2 % (45.5-73.1); Platelet Count Result 250 k/mm3 (150-375); Red Blood Count 4.58 M/mm3 (4.2-5.4); Red Cell Distribution Width 14.4 % (11.5-14.5); White Blood Count 7.3 K/mm3 (4.5-10.0)
[2024-08-08 20:46] LABS: Magnesium 2.1 mg/dL (1.6-2.3)
[2024-08-08 20:47] LABS: Alanine Aminotransferase 8 U/L (6-35); Albumin Level 4.4 g/dL (3.5-5.1); Alkaline Phosphatase 93 U/L (38-126); Anion Gap 9 mmol/L (4-12); Aspartate Amino Transferase 29 U/L (14-36); Bilirubin,Total 0.6 mg/dL (0.2-1.3); Blood Urea Nitrogen 13 mg/dL (7-17); Calcium 9.4 mg/dL (8.4-10.2); Carbon Dioxide 26 mmol/L (22-30); Chloride 105 mmol/L (98-107); Estimated Glomerular Filt Rate > 60; Glucose 98 mg/dL (65-110); Potassium 4.3 mmol/L (3.4-5.0); Sodium 140 mmol/L (137-145)
[2024-08-08 20:50] LABS: INR 0.9; Prothrombin Time 12.9 Seconds (11.1-14.7)
[2024-08-08 20:55] LABS: NT Pro B Type Natriuretic Pept 520 pg/mL (19.9-100)
[2024-08-08 20:59] LABS: Troponin I < 0.012 ng/mL (0.000-0.034)
--- NOTE | 2024-08-08 21:23 | ECG_ITS ---
Test Date: 2024-08-08 21:23:03 Measurements Intervals [place] Rate: 116 P: 91 [place]: 197 QRS: -55 QRSD: 89 T: 194 QT: 351 QTc: 489 Interpretive Statements SINUS TACHYCARDIA LOW QRS VOLTAGE IN PRECORDIAL LEADS LEFT ANTERIOR FASCICULAR BLOCK LEFT VENTRICULAR HYPERTROPHY WITH ST-T CHANGE CONSIDER ANTERIOR INFARCT, AGE INDETERMINATE BORDERLINE T WAVE ABNORMALITY- ANTEROLAT/INF LEADS BASELINE ARTIFACT- I, II, III, AVR, AVL, AVF, V1 ABNORMAL ECG Compared to ECG 08/06/2024 13:21:33 HEART RATE HAS INCREASED Electronically Signed On 08-09-2024 06:28:55 CDT by Milan Burns D.O.
--- NOTE | 2024-08-08 21:29 | PC.NURSE ---
Patient denied feeling dizzy or lightheaded during orthostats. ZHANG Mohan made aware. Patient ambulated to bathroom with steady gait and accompanied by family member.
[2024-08-08] MEDS: SODIUM CHLORIDE 0.9% IV 1,000 ML 999 ML IV CONT (21:35)
[2024-08-09] VITALS (14 sets, daily range): BP systolic 110–139; BP diastolic 70–80; PULSE 62–136; RESP 16–25; TEMP 36.4–36.7; O2SAT 95–97; BMI 27.1
[2024-08-09] MEDS: SODIUM CHLORIDE 0.9% IV 1,000 ML 999 ML IV CONT (00:15)
[2024-08-09] MEDS: SODIUM CHLORIDE 0.9% IV 1,000 ML 100 ML IV CONT ×2 (01:24→14:57)
[2024-08-09 01:55] LABS: Add Urine Microscopic? YES; Appearance Urine Cloudy (Clear); Bacteria Urine 2+ /hpf; Bilirubin Urine Negative (Negative); Blood Urine Negative (Negative); Calcium Oxalate Crystals Urine Present /hpf; Color Urine Yellow (Yellow); Glucose Urine UA Negative (Negative); Ketones Urine Trace mg/dL (Negative); Leukocyte Esterase Ur 2+ LEU/UL (Negative); Need Manual Microscopic Reviewed; Nitrate Urine Negative (Negative); Non Pathogenic Casts 0-2; Protein Urine Negative (Negative); RBC Urine 0-2 /hpf (0-2); Specific Grav Ur 1.019 (1.001-1.035); Squamous Epithelial Cell Urine Moderate /hpf (Few); WBC Urine 21-50 /hpf (0-3)
[2024-08-09 03:59] LABS: Troponin I < 0.012 ng/mL (0.000-0.034)
--- NOTE | 2024-08-09 07:12 | PM.IMHP ---
H&P: HPI History of Present Illness Date/Time: 08/09/24 07:12 Chief Complaint: Tachycardia, paroxysmal, Dyspnea on exertion Narrative: Patient is an 84 y/o female who presents the ED with report of abnormal heart rate. Patient reports she was seen in the ED here on Friday after a near syncopal episode while out shopping. She was having palpitations/tachycardia at that time. Seen and evaluated in the ED, overall reassuring workup, negative CTA PE study. Reports she was told to return if her heart rate became over 120. She states over the last few days she has had intermittent tachycardia with simple exertion. States her heart rate will increase up to the 140s at times with walking across the room. She does feel slightly short of breath with this. Denies chest pain. Denies dizziness, lightheadedness. Denies history of AFib. She does have history of SVT in 2017. Was recently taken off of her metoprolol due to orthostatic hypotension. Scheduled to see Cardiology September 09. In ED: EKG x2 showing sinus rhythm, 1 with the rates in the 90s, 1 with rates in the 110s. Orthostatic vital signs were evaluated and patient was notably tachycardic with going from sitting to standing,Recent ECHO from June 2024 shows LVEF 60-65%, grade 1 diastolic dysfunction. Troponin is undetectable. TSH within normal limits. Chest x-ray is clear.Patient had previously been on metoprolol due to history of episode of SVT in 2016. She was taken off of this around 6 weeks ago due to dizziness/orthostatic hypotension. During the evaluation patient daughter was at the bedside who was the POA. Some days ago patient was not a family reunion when she got fainted and was taken to the ER at [facility]. Patient was cardioverted and discharged with a Holter monitor and metoprolol 25 mg p.o. b.i.d.. Patient was taking metoprolol 25 mg p.o. BT for last 7 years. In the month of April, for her continues ongoing regurgitation due to hiatal hernia patient underwent Walter fundoplication (04/29/2024). Few days after the discharge patient was having some fainting episodes and called her PCP Dr Huseyin Castellon. He advised to reduce the metoprolol dosage from 25 b.i.d. to 12.5 b.i.d.. Last [place] patient went to calls and upon walking patient felt really hot and upon checking her heart rate was 144. Denies any loss of consciousness or fall. Patient came to ED and was evaluated and no evidence of pulmonary embolism and discharged with a recommendation to hydrate. Yesterday patient went to her home reunion and her heart rate was consistently in 120 without any activity and again brought to the ED. currently her metoprolol has been suspended. Cardiology has been evaluated the patient and currently agreeing with holding metoprolol. Patient's complaints of regurgitation/heartburn in spite of taking small bites and chew food thoroughly. Will consult Dr. Hernandez. Review of Systems Review of Systems: All systems reviewed & are unremarkable except as noted in HPI. All systems reviewed & are unremarkable except as noted in HPI and below PMFSH Past Medical History Medical History (Updated 08/09/24 @ 13:03 by NOELLE Wang) Hypercholesterolemia Hyperkalemia Hyperlipidemia Post-menopausal Urinary tract infection Vaginal prolapse 2012 Surgical History Surgical History H/O esophageal hernia repair Laparoscopic repair paraesophageal hiatal hernia, Walter fundoplication on 04/29/24 H/O: hysterectomy 1999 History of bladder surgery Bladder sling 1988 History of colon resection 1999 Family History Family History Mother Patient's mother is Sibling Acute myocardial infarction Father No problems noted. Social History Social History Smoking status: Never
--- NOTE | 2024-08-09 09:10 | PM.CNCAR ---
Assessment and Plan Assessment and plan (1) Tachycardia, paroxysmal: Code(s): I47.9 - Paroxysmal tachycardia, unspecified Status: Acute Assessment and Plan: Probably mulifactorial due to UTI, volume depletion, stopping Metoprolol. Agree with IVF hydration. Monitor on telemetry today. If BP better by tomorrow, consider Metoprolol 12.5 mg daily. (2) Hypercholesterolemia: Code(s): E78.00 - Pure hypercholesterolemia, unspecified Status: Acute Assessment and Plan: On Simvastatin. History of Present Illness History of Present Illness Consult date/time: 08/09/24 09:10 Reason For Visit: Paroxysmal tachycardia Narrative: 84 yr old woman presents to ED with fast HR. She has a history of dyslipidemia, PSVT in 2017 one episode and on Metoprolol. Daughter at bedside. Reports a few weeks ago had hiatal hernia surgery, and soon thereafter was having low BP. Metoprolol discontinued. She had recent UTI. States that 3 days ago was out shopping and had fast HR up to 144 bpm and felt hot and sweaty. It did that intermittently when she is up walking. She walks short distances around her house without any problems. She drinks 2 cups of coffee and 1 bottle of water a day. Denies chest pain, sob, orthopnea, PND, edema. Review of Systems Constitutional: Constitutional: Reports as per HPI, Denies chills, Reports fatigue and Denies fever(s) Cardiovascular: Cardiovascular: Reports as per HPI, Denies chest pain, Reports rapid heart rate and Denies irregular heart rhythm Respiratory: Respiratory: Reports as per HPI and Denies dyspnea Gastrointestinal: Gastrointestinal: Reports as per HPI, Denies abdominal pain and Reports other (reflux) Genitourinary: Genitourinary: Reports as per HPI Musculoskeletal: Musculoskeletal: Reports as per HPI Neurologic: Reports as per HPI, Denies dizziness and Denies syncope [facility] Past Medical History Medical History Hypercholesterolemia Hyperkalemia Hyperlipidemia Post-menopausal Vaginal prolapse 2012 Surgical History Surgical History H/O esophageal hernia repair Laparoscopic repair paraesophageal hiatal hernia, Walter fundoplication on 04/29/24 H/O: hysterectomy 1999 History of bladder surgery Bladder sling 1988 History of colon resection 1999 Family History Family History (Updated 08/09/24 @ 01:09 by Cyndi Hernandez RN) Mother Patient's mother is Sibling Acute myocardial infarction Father No problems noted. Social History Social History Smoking status: Never smoker Alcohol intake: current Alcohol use details: 2-3 glasses of wine per month Substance use: never Substance use type: does not use Do You Feel Safe in your Home?: Yes Lack of Transportation: No Lack of Food: Never True Current Housing: I Have Housing Concerned About Future Housing: No Difficulty Paying Gas/Electric Bills: No Difficulty Paying for Meds: No Currently Unemployed: No Education: High School Diploma/GED Difficulty w/ Childcare or Family Care: No Living arrangements: alone Spiritual care concerns: No Meds Home Medications and Allergies Home Medications Medication Instructions Recorded Confirmed Type simvastatin 10 mg tablet 10 mg PO HS 08/09/24 08/09/24 History Allergies Allergy/AdvReac Type Severity Reaction Status Date / Time No Known Allergies Allergy Verified 08/08/24 15:50 Vital Signs Vital Signs - 24 hr 08/08/24 16:17 08/08/24 20:29 08/08/24 21:28 Temperature 97.7 F Pulse Rate 103 H 66 Respiratory Rate 20 18 Blood Pressure 135/98 H 144/93 H Pulse Oximetry 98 98 Oxygen Delivery Room Air 08/08/24 21:28 08/08/24 21:29 08/08/24 23:00 Temperature Pulse Rate 71 110 H 63 R
--- NOTE | 2024-08-09 12:57 | PM.CNGS ---
Assessment and Plan Assessment and plan (1) Vomiting: Code(s): R11.10 - Vomiting, unspecified Status: Acute Assessment and Plan: This is the reason for our consultation. The patient had a laparoscopic hiatal hernia repair 3 months ago and has healed well following surgery. She began having issues with regurgitation about 3 weeks ago, which have progressively become more frequent. Her chest CT from 08/06/24 was unremarkable. She healed well following her surgery and was not having any of these issues when seen in follow-up with Dr. Hernandez. We will back off to full liquids for now and order an upper GI to further evaluate. Further plan depending on upper GI results. (2) H/O esophageal hernia repair: Code(s): Z98.890 - Other specified postprocedural states; Z87.19 - Personal history of other diseases of the digestive system Status: Acute Assessment and Plan: Patient underwent laparoscopic Walter fundoplication by Dr. Hernandez 3 months ago. No complications following surgery and she has been healing well without any complaints up until 3 weeks ago. See plan above. (3) Tachycardia, paroxysmal: Code(s): I47.9 - Paroxysmal tachycardia, unspecified Status: Acute Assessment and Plan: This is the reason for her admission. Cardiology following. Plan I have discussed the patient's case and plan of care with Dr. George. Thank you for allowing us to see the patient in consultation and we will continue to follow along with you. History of Present Illness Consult details Consult date: 08/09/24 Reason for consult: other (Regurgitation/heartburn) Requesting physician: Gurpreet Canales MD Narrative: This is an 84-year-old woman with a history of GERD and dysphagia, who underwent a laparoscopic paraesophageal hiatal hernia repair by Dr. Hernandez 3 months ago. She healed well following surgery and was last seen by Dr. Hernandez as an outpatient about 1 month ago without any complaints. She reports that 3 weeks ago, she first noticed regurgitation that was very infrequent. She noticed it about once per week and it would follow a meal that typically included some type of bread. Over the past three weeks, she has noticed regurgitation and heartburn more frequently. She felt that over the past few days she noticed mild regurgitation and dysphagia even with thin liquids. She had not told her family this was an issues and has not been seen in our office for these problems since her last follow-up. Yesterday, she came into the ED for evaluation of tachycardia. She has had recent issues with palpitations, tachycardia, and a recent near syncopal episode. She had a CTA chest that was negative for a PE. She has a history of SVT and was previously on a beta leisa, which was stopped at some point due to orthostatic hypotension. In the ED, she was found to have exertional tachycardia and shortness of breath. She has been admitted for further evaluation of her tachycardia, dehydration, and Cardiology evaluation. During her admission, she has also mentioned her recent issues with regurgitation, which prompted our surgical consultation. She is now seen on the medical floor with her daughter at the bedside. Review of Systems Review of Systems: All systems reviewed & are unremarkable except as noted in HPI and below PMFSH Past Medical History Medical History (Updated 08/09/24 @ 13:03 by NOELLE Wang) Hypercholesterolemia Hyperkalemia Hyperlipidemia Post-menopausal Urinary tract infection Vaginal prolapse 2012 Surgical History Surgical History H/O esophageal hernia repair Laparoscopic repair paraesophageal hiatal hernia, Walter fundoplication on 04/29/24 H/O: hysterectomy 1999 History of bladder surgery Bladder sling 1988 History of colon resection 1999 Family History Family History Mother
--- NOTE | 2024-08-09 13:27 | P.CDI_ITS ---
CDI Query Clarification Request BMI: 27.1 Nutritional Diagnostic Statement: Please refer to the comprehensive nutrition assessment for further information. If you agree with diagnosis of Moderate protein calorie malnutrition related to reduced appetite and intake due to swallowing issues and hiatal hernia repair as evidenced by pt report of reduced appetite and intake, noted significant weight loss of -7.5% x 2 months, and NFPE findings for mild subcutaneous fat loss, mild muscle wasting. Please specify severity if known: * Mild * Moderate * Severe * Other/Unknown
[2024-08-09] MEDS: ONDANSETRON INJ 4 MG/2 ML VIAL IV PUSH (20:12)
[2024-08-10] VITALS (9 sets, daily range): BP systolic 103–136; BP diastolic 58–72; PULSE 47–81; RESP 16–18; TEMP 36.1–36.8; O2SAT 94–96
[2024-08-10] MEDS: SODIUM CHLORIDE 0.9% IV 1,000 ML 100 ML IV CONT ×2 (04:29→17:08)
[2024-08-10 08:03] LABS: Hematocrit 37.4 % (37.0-47.0); Hemoglobin 11.8 g/dL (12.0-15.0); Mean Corpuscular HGB Conc 31.6 g/dl (32-36); Mean Corpuscular Hemoglobin 31.7 pg (26-34); Mean Corpuscular Volume 100.5 fl (80-100); Mean Platelet Volume 11.8 fl (7.4-10.4); Platelet Count Result 206 k/mm3 (150-375); Red Blood Count 3.72 M/mm3 (4.2-5.4); Red Cell Distribution Width 14.2 % (11.5-14.5); White Blood Count 6.9 K/mm3 (4.5-10.0)
--- NOTE | 2024-08-10 08:04 | PM.PNCARD ---
Progress Note: A&P Assessment and Plan (1) Tachycardia, paroxysmal: Code(s): I47.9 - Paroxysmal tachycardia, unspecified Status: Acute Assessment and Plan: Probably multifactorial due to UTI, volume depletion, stopping Metoprolol. Agree with IVF hydration. Monitor on telemetry today. Start Metoprolol Succinate 12.5 mg daily. If HR OK by this afternoon may d/c home from cardiology standpoint. (2) Hypercholesterolemia: Code(s): E78.00 - Pure hypercholesterolemia, unspecified Status: Acute Assessment and Plan: On Simvastatin. Subjective Date/time seen: 08/10/24 08:04 Interval history: Denies chest pain or sob. Exam Const: General: cooperative, healthy appearing and comfortable Orientation/consciousness: oriented to person, oriented to place and oriented to time Resp: Auscultation: clear to auscultation bilaterally, no crackles, no rales, no rhonchi and no wheezes Cardio: Rate: regular rate Rhythm: regular rhythm Heart sounds: no murmurs Peripheral pulses: dorsalis pedis present Neuro: General: oriented to person, oriented to place and oriented to time Extrem: Right lower extremity: no edema Left lower extremity: no edema Objective Data Vital Signs Vital Signs: Vital Signs - 24 hr 08/09/24 12:00 08/09/24 14:00 08/09/24 16:00 Temperature 97.9 F Pulse Rate 63 67 67 Respiratory Rate 16 Blood Pressure 119/70 Pulse Oximetry 95 08/09/24 20:39 08/09/24 20:00 08/10/24 00:00 Temperature 97.5 F L Pulse Rate 113 H 87 64 Respiratory Rate 18 Blood Pressure 120/76 Pulse Oximetry 96 08/10/24 05:22 08/10/24 04:00 Temperature 97.0 F L Pulse Rate 52 L 47 L Respiratory Rate 16 Blood Pressure 107/58 L Pulse Oximetry 96 Intake/Output Intake/Output: Intake & Output 08/07/24 08/08/24 08/09/24 08/10/24 23:59 23:59 23:59 23:59 Intake Total 1000 2806 1150 Output Total 1100 Balance 1000 1706 1150 Meds/Results Medications: Active Medications Generic Name Dose Route Start Last Admin Trade Name Freq PRN Reason Stop Dose Admin Sodium Chloride 1,000 mls @ 100 mls/hr 08/09/24 00:30 08/10/24 04:29 Normal Saline Iv IV CONT 100 mls/hr .Q10H AKSHAT Administration Ceftriaxone Sodium 1 gm in 50 mls @ 100 mls/hr 08/09/24 11:00 08/09/24 12:57 Rocephin 1 Gm/Ns 50 Ml IVPB Infused Q24H AKSHAT Infusion Simvastatin 10 mg 08/09/24 21:00 08/09/24 21:46 Simvastatin 10 Mg Tablet PO Not Given HS AKSHAT Radiology Results: ITS Impressions Chest X-Ray 08/08/24 17:20 IMPRESSION: No acute cardiopulmonary pathology. Upper GI Series 08/09/24 14:21 IMPRESSION: 1. Severe esophageal dysmotility.
[2024-08-10 08:13] LABS: Alkaline Phosphatase 65 U/L (38-126); Anion Gap 4 mmol/L (4-12); Aspartate Amino Transferase 18 U/L (14-36); Bilirubin,Total 0.5 mg/dL (0.2-1.3); Blood Urea Nitrogen 7 mg/dL (7-17); Calcium 8.6 mg/dL (8.4-10.2); Carbon Dioxide 26 mmol/L (22-30); Chloride 109 mmol/L (98-107); Estimated CRCL calculation 46 ml/min; Estimated Glomerular Filt Rate > 60; Glucose 79 mg/dL (65-110); Potassium 4.3 mmol/L (3.4-5.0); Sodium 139 mmol/L (137-145)
[2024-08-10 08:16] LABS: Alanine Aminotransferase < 6 U/L (6-35)
[2024-08-10] MEDS: HYOSCYAMINE SULFATE 0.125 MG TABLET PO ×3 (09:01→17:08)
[2024-08-10] MEDS: METOPROLOL SUCCINATE EXT REL 12.5 MG TABCR PO (09:05)
--- NOTE | 2024-08-10 10:18 | PM.PNGS ---
Progress Note: A&P Assessment and Plan (1) Vomiting: Code(s): R11.10 - Vomiting, unspecified Status: Acute Assessment and Plan: Complaints of dysphagia and regurgitation. She is s/p hiatal hernia repair, and has healed well following surgery. Upper GI showed severe esophageal dysmotility. No recurrent hiatal hernia. Will try starting hyoscyamine before meals. Also recommended trying peppermint oil before meals, which may help with esophageal relaxation. Other options if no improvement in symptoms would be some antihypertensive agents such as isosorbide or diltiazem, but these would need to be managed by Cardiology due to the cardiac effects and her current cardiac issues. (2) H/O esophageal hernia repair: Code(s): Z98.890 - Other specified postprocedural states; Z87.19 - Personal history of other diseases of the digestive system Status: Acute Assessment and Plan: S/p laparoscopic Walter fundoplication by Dr. Hernandez on 04/29/24. (3) Tachycardia, paroxysmal: Code(s): I47.9 - Paroxysmal tachycardia, unspecified Status: Acute Plan I have discussed the patient's case and plan of care with Dr. George. Subjective Subjective Date/Time Seen: 08/10/24 10:18 Interval history: Patient has no new complaints. No acute events overnight. Exam Const: General: comfortable GI: Inspection: non-distended and scar (port sites well healed) GI Palp: Yes Soft to palpation and No Tenderness to palpation present (GI) Auscultation: normal bowel sounds Objective Data Vital Signs Vital Signs: Vital Signs - 24 hr 08/09/24 12:00 08/09/24 14:00 08/09/24 16:00 Temperature 97.9 F Pulse Rate 63 67 67 Respiratory Rate 16 Blood Pressure 119/70 Pulse Oximetry 95 08/09/24 20:39 08/09/24 20:00 08/10/24 00:00 Temperature 97.5 F L Pulse Rate 113 H 87 64 Respiratory Rate 18 Blood Pressure 120/76 Pulse Oximetry 96 08/10/24 05:22 08/10/24 04:00 08/10/24 09:05 Temperature 97.0 F L Pulse Rate 52 L 47 L 66 Respiratory Rate 16 Blood Pressure 107/58 L Pulse Oximetry 96 Intake/Output Intake/Output: Intake & Output 08/07/24 08/08/24 08/09/24 08/10/24 23:59 23:59 23:59 23:59 Intake Total 1000 2806 1270 Output Total 1100 Balance 1000 1706 1270 Meds/Results Medications: Active Medications Generic Name Dose Route Start Last Admin Trade Name Rhoda PRN Reason Stop Dose Admin Hyoscyamine 0.125 mg 08/10/24 08:30 08/10/24 09:01 Hyoscyamine Sulfate 0.125 Mg Tablet PO 0.125 mg AC AKSHAT Administration Sodium Chloride 1,000 mls @ 100 mls/hr 08/09/24 00:30 08/10/24 08:59 Normal Saline Iv IV CONT Not Given .Q10H AKSHAT Ceftriaxone Sodium 1 gm in 50 mls @ 100 mls/hr 08/09/24 11:00 08/09/24 12:57 Rocephin 1 Gm/Ns 50 Ml IVPB Infused Q24H AKSHAT Infusion Metoprolol Succinate 12.5 mg 08/10/24 09:00 08/10/24 09:05 Metoprolol Succinate Ext Rel 12.5 Mg Tabcr PO 12.5 mg QAM AKSHAT Administration Simvastatin 10 mg 08/09/24 21:00 08/09/24 21:46 Simvastatin 10 Mg Tablet PO Not Given HS AKSHAT Radiology Results: ITS Impressions Chest X-Ray 08/08/24 17:20 IMPRESSION: No acute cardiopulmonary pathology. Upper GI Series 08/09/24 14:21 IMPRESSION: 1. Severe esophageal dysmotility. Labs Labs: Laboratory Results - last 24 hr 08/10/24 07:13 WBC 6.9 RBC 3.72 L Hgb 11.8 L Hct 37.4 MCV 100.5 H MCH 31.7 MCHC 31.6 L RDW 14.2 Plt Count 206 MPV 11.8 H Sodium 139 Potassium 4.3 Chloride 109 H Carbon Dioxide 26 Anion Gap 4 BUN 7 D Creatinine 0.70 Estim Creat Clear Calc 46 Estimated GFR > 60 Glucose 79 Calcium 8.6 Total Bilirubin 0.5 AST 18 ALT < 6 L Alkaline Phosphatase 65 Total Protein 6.0 L Albumin 3.0 L
--- NOTE | 2024-08-10 14:44 | PCSTNOTE ---
Please refer to the Bedside Swallow Evaluation in the EMR. Please note, silent aspiration cannot be ruled out at bedside.
--- NOTE | 2024-08-10 15:10 | PM.IMPN ---
Progress Note: A&P Assessment and Plan (1) Tachycardia, paroxysmal: Code(s): I47.9 - Paroxysmal tachycardia, unspecified Status: Acute (2) History of supraventricular tachycardia: Code(s): Z86.79 - Personal history of other diseases of the circulatory system Status: Chronic (3) Chronic GERD: Code(s): K21.9 - Gastro-esophageal reflux disease without esophagitis Status: Chronic (4) Paraesophageal hiatal hernia: Code(s): K44.9 - Diaphragmatic hernia without obstruction or gangrene Status: Chronic (5) Urinary tract infection: Code(s): N39.0 - Urinary tract infection, site not specified Status: Acute Plan #UTI, ruled out urine culture negative Discontinue Rocephin #Paroxysmal Tachy -Continue IVF hydration. -Monitor on telemetry today. on Metoprolol 12.5 mg daily per cardiology DVT prophyalxis on Sq Lovenox Subjective Date/time seen: 08/10/24 15:10 Interval history: Patient comfortable at bedside. Restarted on Metoprolol 12.5 mg today by cardiology Also awaiting swallow eval. Review of Systems Review of Systems: All systems reviewed & are unremarkable except as noted in HPI. All systems reviewed & are unremarkable except as noted in HPI and below Exam Narrative: GENERAL: Elderly but well appearing, well-nourished, non-toxic, in no acute distress. HEAD: Normocephalic, atraumatic. RESPIRATORY: Airway patent, respirations nonlabored. Clear to auscultation bilaterally, no rales, rhonchi, wheezing. CARDIOVASCULAR: Labile HR, intermittent tachycardic, appears regular rhythm without murmurs, rubs, or gallops. MUSCULOSKELETAL: Moves all extremities. No gross deformities. No peripheral edema. No calf tenderness. SKIN: Warm, dry, normal color. NEURO: A&O X3. Speech clear. Cranial nerves II-XII grossly intact. Steady gait. No ataxic movements. PSYCHIATRIC: Appropriate mood and affect. Normal interaction. Objective Data Vital Signs Vital Signs: Vital Signs - 24 hr 08/09/24 16:00 08/09/24 20:39 08/09/24 20:00 Temperature 97.5 F L Pulse Rate 67 113 H 87 Respiratory Rate 18 Blood Pressure 120/76 Pulse Oximetry 96 08/10/24 00:00 08/10/24 05:22 08/10/24 04:00 Temperature 97.0 F L Pulse Rate 64 52 L 47 L Respiratory Rate 16 Blood Pressure 107/58 L Pulse Oximetry 96 08/10/24 09:05 08/10/24 09:05 08/10/24 09:05 Temperature Pulse Rate 66 66 53 L Respiratory Rate Blood Pressure 136/72 Pulse Oximetry Intake/Output Intake/Output: Intake & Output 08/07/24 08/08/24 08/09/24 08/10/24 23:59 23:59 23:59 23:59 Intake Total 1000 2806 1390 Output Total 1100 Balance 1000 1706 1390 Meds/Results Medications: Active Medications Generic Name Dose Route Start Last Admin Trade Name Freq PRN Reason Stop Dose Admin Hyoscyamine 0.125 mg 08/10/24 08:30 08/10/24 11:58 Hyoscyamine Sulfate 0.125 Mg Tablet PO 0.125 mg AC AKSHAT Administration Sodium Chloride 1,000 mls @ 100 mls/hr 08/09/24 00:30 08/10/24 08:59 Normal Saline Iv IV CONT Not Given .Q10H AKSHAT Ceftriaxone Sodium 1 gm in 50 mls @ 100 mls/hr 08/09/24 11:00 08/10/24 11:58 Rocephin 1 Gm/Ns 50 Ml IVPB 100 mls/hr Q24H AKSHAT Administration Metoprolol Succinate 12.5 mg 08/10/24 09:00 08/10/24 09:05 Metoprolol Succinate Ext Rel 12.5 Mg Tabcr PO 12.5 mg QAM AKSHAT Administration Simvastatin 10 mg 08/09/24 21:00 08/09/24 21:46 Simvastatin 10 Mg Tablet PO Not Given HS AKSHAT Radiology Results: ITS Impressions Chest X-Ray 08/08/24 17:20 IMPRESSION: No acute cardiopulmonary pathology. Upper GI Series 08/09/24 14:21 IMPRESSION: 1. Severe esophageal dysmotility. Labs Labs: Laboratory Results - last 24 hr 08/10/24 07:13 WBC 6.9 RBC 3.72 L Hgb 11.8 L Hct 37.4 MCV 100.5 H MCH 31.7 MCHC 31.6 L RDW 14.2 Plt Count 206 MPV 11.8 H Sodium 139
[2024-08-10] MEDS: SIMVASTATIN 10 MG TABLET PO (20:17)
[2024-08-11] VITALS (7 sets, daily range): BP systolic 113–136; BP diastolic 64–69; PULSE 46–84; RESP 16; TEMP 36.3; O2SAT 97–98
[2024-08-11] MEDS: SODIUM CHLORIDE 0.9% IV 1,000 ML 100 ML IV CONT (03:31)
[2024-08-11] MEDS: HYOSCYAMINE SULFATE 0.125 MG TABLET PO ×2 (06:05→11:32)
[2024-08-11 07:08] LABS: Basophils Absolute Auto 0.1 K/mm3 (0.0-0.1); Basophils Percent Auto 0.9 % (0.2-1.2); Eosinophils Absolute Auto 0.4 K/mm3 (0-0.3); Eosinophils Percent Auto 5.6 % (0-4.4); Hematocrit 37.9 % (37.0-47.0); Immature Granulocyte Absolute 0.02 K/mm3 (0.00-0.031); Immature Granulocyte Percent A 0.3 % (0-0.5); Lymphocytes Absolute Auto 1.47 K/mm3 (0.9-3.2); Mean Corpuscular HGB Conc 31.7 g/dl (32-36); Mean Corpuscular Hemoglobin 31.2 pg (26-34); Mean Corpuscular Volume 98.4 fl (80-100); Mean Platelet Volume 11.6 fl (7.4-10.4); Monocytes Absolute Auto 0.7 K/mm3 (0.1-0.6); Monocytes Percent Auto 11.4 % (2.6-8.5); Neutrophils Absolute Auto 3.8 K/mm3 (1.3-6.7); Neutrophils Percent Auto 58.8 % (45.5-73.1); Platelet Count Result 185 k/mm3 (150-375); Red Blood Count 3.85 M/mm3 (4.2-5.4); Red Cell Distribution Width 14.4 % (11.5-14.5); White Blood Count 6.4 K/mm3 (4.5-10.0)
[2024-08-11 07:26] LABS: Alanine Aminotransferase 6 U/L (6-35); Albumin Level 2.9 g/dL (3.5-5.1); Alkaline Phosphatase 67 U/L (38-126); Anion Gap 5 mmol/L (4-12); Aspartate Amino Transferase 24 U/L (14-36); Bilirubin,Total 0.3 mg/dL (0.2-1.3); Blood Urea Nitrogen 5 mg/dL (7-17); Calcium 8.5 mg/dL (8.4-10.2); Carbon Dioxide 24 mmol/L (22-30); Chloride 109 mmol/L (98-107); Estimated CRCL calculation 46 ml/min; Estimated Glomerular Filt Rate > 60; Glucose 85 mg/dL (65-110); Magnesium 1.9 mg/dL (1.6-2.3); Potassium 3.7 mmol/L (3.4-5.0); Sodium 138 mmol/L (137-145)
[2024-08-11 07:28] LABS: Lactic Acid Reflex 0.9 mmol/L (0.7-2.0)
--- NOTE | 2024-08-11 08:08 | PM.PNCARD ---
Progress Note: A&P Assessment and Plan (1) Tachycardia, paroxysmal: Code(s): I47.9 - Paroxysmal tachycardia, unspecified Status: Acute Assessment and Plan: She does go tachycardic with minimal activity. Probably multifactorial due to UTI, volume depletion, stopping Metoprolol. Agree with IVF hydration. Monitor on telemetry today. On Metoprolol Succinate 12.5 mg daily. May d/c home from cardiology standpoint and f/u with me in [address] a holter/event monitor in my office. (2) Hypercholesterolemia: Code(s): E78.00 - Pure hypercholesterolemia, unspecified Status: Acute Assessment and Plan: On Simvastatin. Subjective Date/time seen: 08/11/24 08:08 Interval history: Denies chest pain or sob. Exam Const: General: cooperative, healthy appearing and comfortable Orientation/consciousness: oriented to person, oriented to place and oriented to time Resp: Auscultation: clear to auscultation bilaterally, no crackles, no rales, no rhonchi and no wheezes Cardio: Rate: regular rate Rhythm: regular rhythm Heart sounds: no murmurs Peripheral pulses: dorsalis pedis present Neuro: General: oriented to person, oriented to place and oriented to time Extrem: Right lower extremity: no edema Left lower extremity: no edema Objective Data Vital Signs Vital Signs: Vital Signs - 24 hr 08/10/24 09:05 08/10/24 09:05 08/10/24 09:05 Temperature Pulse Rate 66 66 53 L Respiratory Rate Blood Pressure 136/72 Pulse Oximetry Oxygen Delivery 08/10/24 14:00 08/10/24 12:00 08/10/24 16:00 Temperature 98.0 F Pulse Rate 58 L 55 L 56 L Respiratory Rate 18 Blood Pressure 119/65 Pulse Oximetry 95 Oxygen Delivery 08/10/24 20:15 08/10/24 20:00 08/10/24 20:00 Temperature 98.3 F Pulse Rate 81 78 Respiratory Rate 16 Blood Pressure 103/65 Pulse Oximetry 94 Oxygen Delivery Room Air 08/11/24 00:00 08/11/24 05:17 08/11/24 04:00 Temperature 97.3 F L Pulse Rate 65 64 46 L Respiratory Rate 16 Blood Pressure 113/69 Pulse Oximetry 98 Oxygen Delivery Intake/Output Intake/Output: Intake & Output 09/2908/09/24 08/10/24 08/11/24 23:59 23:59 23:59 23:59 Intake Total 1000 2806 2750 1150 Output Total 1100 Balance 1000 1706 2750 1150 Meds/Results Medications: Active Medications Generic Name Dose Route Start Last Admin Trade Name Freq PRN Reason Stop Dose Admin Enoxaparin Sodium 40 mg 08/11/24 09:00 Enoxaparin 40 Mg/0.4 Ml Syringe SUB-Q DAILY AKSHAT Hyoscyamine 0.125 mg 08/10/24 08:30 08/11/24 06:05 Hyoscyamine Sulfate 0.125 Mg Tablet PO 0.125 mg AC AKSHAT Administration Sodium Chloride 1,000 mls @ 100 mls/hr 08/09/24 00:30 08/11/24 03:31 Normal Saline Iv IV CONT 100 mls/hr .Q10H AKSHAT Administration Ceftriaxone Sodium 1 gm in 50 mls @ 100 mls/hr 08/09/24 11:00 08/10/24 11:58 Rocephin 1 Gm/Ns 50 Ml IVPB 100 mls/hr Q24H AKSHAT Administration Metoprolol Succinate 12.5 mg 08/10/24 09:00 08/10/24 09:05 Metoprolol Succinate Ext Rel 12.5 Mg Tabcr PO 12.5 mg QAM AKSHAT Administration Simvastatin 10 mg 08/09/24 21:00 08/10/24 20:17 Simvastatin 10 Mg Tablet PO 10 mg HS AKSHAT Administration Radiology Results: ITS Impressions Chest X-Ray 08/08/24 17:20 IMPRESSION: No acute cardiopulmonary pathology. Upper GI Series 08/09/24 14:21 IMPRESSION: 1. Severe esophageal dysmotility. Labs Labs: Laboratory Results - last 24 hr 08/10/24 08/11/24 07:13 06:46 WBC 6.4 RBC 3.85 L Hgb 12.0 Hct 37.9 MCV 98.4 MCH 31.2 MCHC 31.7 L RDW 14.4 Plt Count 185 MPV 11.6 H Immature Gran % (Auto) 0.3 Neut % (Auto) 58.8 Lymph % (Auto) 23.0 Bath % (Auto) 11.4 H Eos % (Auto) 5.6 H Baso % (Auto) 0.9 Lymph # (Auto) 1.47 Bath # (Auto) 0.7 H Eos # (Auto) 0.4 H Baso # (Auto) 0.1 Abs Immat Gran (auto) 0.02 Abso
[2024-08-11] MEDS: METOPROLOL SUCCINATE EXT REL 12.5 MG TABCR PO (09:17)
[2024-08-11] MEDS: ENOXAPARIN 40 MG/0.4 ML SYRINGE SUB-Q (09:19)
--- NOTE | 2024-08-11 10:39 | PM.DS ---
DS: Admitting Diagnosis Discharge Date 08/11/24 Admitting Diagnosis Paroxysmal tachycardia DS: Discharge Diagnosis Discharge Diagnosis (1) Tachycardia, paroxysmal: Code(s): I47.9 - Paroxysmal tachycardia, unspecified Status: Acute DS: Summary Hospital Course Hospital Course: Patient is an 84 y/o female who presents the ED with report of abnormal heart rate. Patient reports she was seen in the ED here on Friday after a near syncopal episode while out shopping. She was having palpitations/tachycardia at that time. Seen and evaluated in the ED, overall reassuring workup, negative CTA PE study. Reports she was told to return if her heart rate became over 120. She states over the last few days she has had intermittent tachycardia with simple exertion. States her heart rate will increase up to the 140s at times with walking across the room. She does feel slightly short of breath with this. Denies chest pain. Denies dizziness, lightheadedness. Denies history of AFib. She does have history of SVT in 2017. Was recently taken off of her metoprolol due to orthostatic hypotension. Scheduled to see Cardiology September 09. In ED: EKG x2 showing sinus rhythm, 1 with the rates in the 90s, 1 with rates in the 110s. Orthostatic vital signs were evaluated and patient was notably tachycardic with going from sitting to standing,Recent ECHO from June 2024 shows LVEF 60-65%, grade 1 diastolic dysfunction. Troponin is undetectable. TSH within normal limits. Chest x-ray is clear.Patient had previously been on metoprolol due to history of episode of SVT in 2017. She was taken off of this around 6 weeks ago due to dizziness/orthostatic hypotension. During the evaluation patient daughter was at the bedside who was the POA. Some days ago patient was not a family reunion when she got fainted and was taken to the ER at [facility]. Patient was cardioverted and discharged with a Holter monitor and metoprolol 25 mg p.o. b.i.d.. Patient was taking metoprolol 25 mg p.o. BT for last 7 years. In the month of April, for her continues ongoing regurgitation due to hiatal hernia patient underwent Walter fundoplication (04/29/2024). Few days after the discharge patient was having some fainting episodes and called her PCP Dr Huseyin Castellon. He advised to reduce the metoprolol dosage from 25 b.i.d. to 12.5 b.i.d.. Last [place] patient went to calls and upon walking patient felt really hot and upon checking her heart rate was 144. Denies any loss of consciousness or fall. Patient came to ED and was evaluated and no evidence of pulmonary embolism and discharged with a recommendation to hydrate. Yesterday patient went to her home reunion and her heart rate was consistently in 120 without any activity and again brought to the ED. Patient was placed on IV fluids, cardiology was consulted and Metoprolol eventually initiated at 12.5mg daily which she tolerated overnight with HR in 50 to 80s. Gen surgery started on Hyoscyamine which she stated helped her swallowing very much. Patient will conitnue follow up with PCP in 3-5 days, Gen surgery and cardiology as instructed Assessment and Plan (1) Tachycardia, paroxysmal: Code(s): I47.9 - Paroxysmal tachycardia, unspecified Status: Acute (2) History of supraventricular tachycardia: Code(s): Z86.79 - Personal history of other diseases of the circulatory system Status: Chronic (3) Chronic GERD: Code(s): K21.9 - Gastro-esophageal reflux disease without esophagitis Status: Chronic (4) Paraesophageal hiatal hernia: Code(s): K44.9 - Diaphragmatic hernia without obstruction or gangrene Status: Chronic (5) Urinary tract infection: Code(s): N39.0 - Urinary tract infection, site not specified Status: Acute Plan #UTI, ruled out urine culture negative Discontinue Rocephin #Paroxysmal Tachy -s/p rehydration and on Metoprolol 12.5mg HR now
[2024-08-11] MEDS: INFLUENZA VACCINE HIGH DOSE (>64) 180 MCG/0.5 ML SYRINGE IM (11:34)
--- NOTE | 2024-08-11 11:47 | PM.PNGS ---
Progress Note: A&P Assessment and Plan (1) Vomiting: Code(s): R11.10 - Vomiting, unspecified Status: Acute Assessment and Plan: Symptoms improved with the hyoscyamine. No complaints of dysphagia or regurgitation since yesterday. Will advance her to a soft diet Okay to discharge the patient from a surgical standpoint and she can follow up with Dr. Hernandez in our office in the next few weeks. (2) H/O esophageal hernia repair: Code(s): Z98.890 - Other specified postprocedural states; Z87.19 - Personal history of other diseases of the digestive system Status: Acute Assessment and Plan: S/p laparoscopic Walter fundoplication by Dr. Hernandez on 04/29/24. (3) Tachycardia, paroxysmal: Code(s): I47.9 - Paroxysmal tachycardia, unspecified Status: Acute Subjective Subjective Date/Time Seen: 08/11/24 11:47 Patient reports: no new complaints Interval history: Patient is doing well with the full liquid diet. She reports significant improvement since starting the hyoscyamine. She denies any dysphagia or regurgitation. She even tried mashed potatoes and a small amount of soft crockpot chicken last night her son brought in and denies any issues with swallowing. Exam Const: General: comfortable and no acute distress Orientation/consciousness: patient oriented x3 GI: Inspection: non-distended and scar (port sites well healed) GI Palp: Yes Soft to palpation and No Tenderness to palpation present (GI) Auscultation: normal bowel sounds Objective Data Vital Signs Vital Signs: Vital Signs - 24 hr 08/10/24 14:00 08/10/24 12:00 08/10/24 16:00 Temperature 98.0 F Pulse Rate 58 L 55 L 56 L Respiratory Rate 18 Blood Pressure 119/65 Pulse Oximetry 95 Oxygen Delivery 08/10/24 20:15 08/10/24 20:00 08/10/24 20:00 Temperature 98.3 F Pulse Rate 81 78 Respiratory Rate 16 Blood Pressure 103/65 Pulse Oximetry 94 Oxygen Delivery Room Air 08/11/24 00:00 08/11/24 05:17 08/11/24 04:00 Temperature 97.3 F L Pulse Rate 65 64 46 L Respiratory Rate 16 Blood Pressure 113/69 Pulse Oximetry 98 Oxygen Delivery 08/11/24 09:12 08/11/24 09:17 08/11/24 08:00 Temperature Pulse Rate 84 84 64 Respiratory Rate Blood Pressure 136/64 Pulse Oximetry 97 Oxygen Delivery Intake/Output Intake/Output: Intake & Output 08/08/24 08/09/24 08/10/24 08/11/24 23:59 23:59 23:59 23:59 Intake Total 1000 2806 2750 1510 Output Total 1100 Balance 1000 1706 2750 1510 Meds/Results Medications: Active Medications Generic Name Dose Route Start Last Admin Trade Name Freq PRN Reason Stop Dose Admin Enoxaparin Sodium 40 mg 08/11/24 09:00 08/11/24 09:19 Enoxaparin 40 Mg/0.4 Ml Syringe SUB-Q 40 mg DAILY AKSHAT Administration Hyoscyamine 0.125 mg 08/10/24 08:30 08/11/24 11:32 Hyoscyamine Sulfate 0.125 Mg Tablet PO 0.125 mg AC AKSHAT Administration Sodium Chloride 1,000 mls @ 100 mls/hr 08/09/24 00:30 08/11/24 03:31 Normal Saline Iv IV CONT 100 mls/hr .Q10H AKSHAT Administration Ceftriaxone Sodium 1 gm in 50 mls @ 100 mls/hr 08/09/24 11:00 08/11/24 09:28 Rocephin 1 Gm/Ns 50 Ml IVPB Not Given Q24H AKSHAT Metoprolol Succinate 12.5 mg 08/10/24 09:00 08/11/24 09:17 Metoprolol Succinate Ext Rel 12.5 Mg Tabcr PO 12.5 mg QAM AKSHAT Administration Simvastatin 10 mg 08/09/24 21:00 08/10/24 20:17 Simvastatin 10 Mg Tablet PO 10 mg HS AKSHAT Administration Radiology Results: ITS Impressions Chest X-Ray 08/08/24 17:20 IMPRESSION: No acute cardiopulmonary pathology. Upper GI Series 08/09/24 14:21 IMPRESSION: 1. Severe esophageal dysmotility. Labs Labs: Laboratory Results - last 24 hr 08/11/24 06:46 WBC 6.4 RBC 3.85 L Hgb 12.0 Hct 37.9 MCV 98.4 MCH 31.2 MCHC 31.7 L RDW 14.4 Plt Count 185 MPV 11.6 H Immature Gran % (Auto) 0.3 Neut % (Auto) 58.8 Lymph % (
== END 2024-08-11 13:10 | disposition home or self-care (01) ==
LOC: ANHED 20:02 → ANH3MEDSUR 08-09 01:40
PROVIDERS: Emergency Medicine; General Practice; Admitting Provider Internal Medicine; Emergency Provider Physician Assistant; PCP Clinical Nurse Specialist; Visit Provider Internal Medicine
DX: I47.9 Paroxysmal tachycardia, unspecified (principal); R06.00 Dyspnea, unspecified; E78.00 Pure hypercholesterolemia, unspecified; R11.10 Vomiting, unspecified; Z98.890 Other specified postprocedural states; Z87.19 Personal history of other diseases of the digestive system; K21.9 Gastro-esophageal reflux disease without esophagitis; Z79.899 Other long term (current) drug therapy; Z86.79 Personal history of other diseases of the circulatory system; Z23 Encounter for immunization
CPT/HCPCS: 36415; 71046; 74240; 80053; 81001; 83605; 83735; 83880; 84443; 84484; 85025; 85027; 85610; 85730; 87086; 87088; 90471; 90662; 92526; 92610; 93005; 96361; 96365; 96372; 96375; 96376; 99285; A9270; G0008; G0378; J0696; J1650; J2405; J7030

== ENCOUNTER 2024-09-09 07:29 | Outpatient (CLI) | payer MEDICARE, SELFPAY ==
--- NOTE | ~2024-09-09 | CT_ITS ---
EXAMINATION: CT chest abdomen w con DATE: 09/09/2024 07:58 INDICATION: Dysphagia after fundoplication. TECHNIQUE: Computed tomography (CT) of the chest and abdomen was performed with 100 mL Omnipaque 350 intravenous contrast. Automated exposure control and iterative reconstruction technique were employed . The dose-length product was 558.19 mGy-cm. COMPARISON: Chest CT 08/06/2024, CT abdomen 03/14/17, abdomen MRI 08/10/2015 FINDINGS: CHEST CT: There is mild scarring at the lung apices. There is mild atelectasis bilaterally. There is a 1.3 cm n odule in right lung lower lobe. There is a 4 mm nodule in right upper lobe. There is a 3 mm nodule in right upper lobe. There is a chronic 6 mm nodule at minor fissure. No pleural effusion. The heart si ze is normal. No pericardial effusion. There is a small sliding hiatal hernia. 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 There is severe cervical and thoracic spondylosi s. ABDOMEN CT: There are cysts in the liver measuring up to 1.6 cm. There are gallstones in the gallbladder which is normal in size. The spleen is normal. There is an 8 mm cyst in the tail of the pancreas, likely [place]. The adrenal glands are normal. There is cortical thinning of the kidneys. There are peripelvic cy sts in the kidneys measuring up to 2.5 cm on the right. There are no dilated loops of bowel. There is severe lumbar spondylosis. IMPRESSION: 1. Small sliding hiatal hernia with changes of fundoplication. 2. 1.3 cm nodule in right lung lower lobe, stable from 08/06/2024. This finding is suspicious for prim tayo bronchogenic carcinoma. A 3 mm pulmonary artery branches within the nodule making it higher risk for percutaneous biopsy. Reviewed, dictated and finalized at location [] IMPRESSION: 1. Small sliding hiatal hernia with changes of fundoplication. 2. 1.3 cm nodule in right lung lower lobe, stable from 08/06/2024. This finding is suspicious for primary bronchogenic carcinoma. A 3 mm pulmonary artery branc hes within the nodule making it higher risk for percutaneous biopsy.
== END 2024-09-09 07:30 | disposition home or self-care (01) ==
PROVIDERS: PCP Clinical Nurse Specialist; Visit Provider Surgery
DX: R13.19 Other dysphagia (principal); K44.9 Diaphragmatic hernia without obstruction or gangrene
CPT/HCPCS: 71260; 74160; Q9967

== ENCOUNTER 2024-09-19 09:02 | Day surgery (SDC) | payer MEDICARE, SELFPAY ==
--- NOTE | ~2024-09-19 | XR_ITS ---
Portable chest x-ray Comparison: 08/08/2024 Clinical History: piece of chicken stuck in distal esophagus Findings: Probable COPD pattern of the lungs. No consolidation, pleural effusion, or pneumothorax. Cardiomediastinal silhouette is stable. Fracture deformity the surgical neck of the proximal right hu merus again noted. Impression: Clear lungs. Probable COPD. Fracture of the surgical neck of the proximal right humerus again noted. Reviewed, dictated and finalized at location . [employer] Impression: Clear lungs. Probable COPD. Fracture of the surgical neck of the proximal right humerus again noted.
[2024-09-19 09:09] VITALS: BP 138/89; PULSE 97; RESP 18; TEMP 36.6; O2SAT 96
--- NOTE | 2024-09-19 09:54 | ED_ITS ---
HPI - General Adult General Chief complaint: Unspecified Stated complaint: trouble swallowing, food bolus Time Seen by Provider: 09/19/24 09:19 History of Present Illness HPI narrative: 84-year-old female presented to the emergency department for evaluation for a suspected esophageal food bolus. Patient has no prior history of esophageal obstruction, patient does have history of hiatal hernia that was repaired by Dr. Hernandez in April. Patient states she has still been having intermittent difficulty with swallowing and is scheduled to have an EGD in October by Dr Cast. Patient reports she has been obstructed since approximately 130 yesterday. Related Data Home Medications Medication Instructions Recorded Confirmed simvastatin 10 mg tablet 10 mg PO HS 08/09/24 09/19/24 Allergies Allergy/AdvReac Type Severity Reaction Status Date / Time No Known Allergies Allergy Verified 09/19/24 11:14 Review of Systems Review of Systems: All systems reviewed & are unremarkable except as noted in HPI and below PMFSH Past Medical History Medical History Hypercholesterolemia Hyperkalemia Hyperlipidemia Post-menopausal Urinary tract infection Vaginal prolapse 2012 Surgical History Surgical History H/O esophageal hernia repair Laparoscopic repair paraesophageal hiatal hernia, Walter fundoplication on 04/29/24 H/O: hysterectomy 1999 History of bladder surgery Bladder sling 1988 History of colon resection 1999 Family History Family History Mother Patient's mother is Sibling Acute myocardial infarction Father No problems noted. Social History Social History Smoking status: Never smoker Alcohol intake: current Alcohol use details: 2-3 glasses of wine per month Substance use: never Substance use type: does not use Do You Feel Safe in your Home?: Yes Lack of Transportation: No Lack of Food: Never True Current Housing: I Have Housing Concerned About Future Housing: No Difficulty Paying Gas/Electric Bills: No Difficulty Paying for Meds: No Currently Unemployed: No Education: High School Diploma/GED Difficulty w/ Childcare or Family Care: No Living arrangements: alone Spiritual care concerns: No Exam Narrative: APPEARANCE: Well appearing, no pain, no distress, well-nourished. HEAD: normocephalic, atraumatic. EYES: PERRLA/EOMI, conjunctivae clear. NOSE: Normal no drainage EARS:TMS clear with good light reflex. THROAT: Pharynx clear, no exudate. NECK: Supple. No adenopathy, no masses. RESPIRATORY: Airway patent, respirations nonlabored. Clear to auscultation bilaterally, no rales, rhonchi, wheezing. CARDIOVASCULAR: Regular rate and rhythm without murmurs rubs or gallops. ABDOMINAL: Soft, nontender, nondistended, normal bowel sounds MUSCULOSKELETAL: Moves all extremities. Strength/ROM intact, No edema, No calf tenderness. NEURO: Alert. Cranial nerves II through XII intact. Good gait. Good coordination SKIN: Warm, dry. Normal Color Course Vital Signs Vital signs: Vital Signs Temperature 97.8 F 09/19/24 09:09 Pulse Rate 97 09/19/24 09:09 Respiratory Rate 18 09/19/24 09:09 Blood Pressure 138/89 09/19/24 09:09 Pulse Oximetry 96 09/19/24 09:09 Oxygen Delivery Room Air 09/19/24 09:09 Temperature 97 F L 09/19/24 11:08 Pulse Rate 68 09/19/24 12:01 Respiratory Rate 22 H 09/19/24 12:01 Blood Pressure 124/90 09/19/24 12:01 Pulse Oximetry 100 09/19/24 12:01 Oxygen Delivery Room Air 09/19/24 12:01 Medical Decision Making [facility] Narrative Medical decision making narrative: 84-year-old female presents to the emergency department for evaluation for suspected food bolus. Patient did not tolerate a p.o. challenge. Patient was treated with IM glucagon. GI was consulted. GI will take the patient to the GI lab for suspected food bolus. Patient and family are comfortable the plan for admission. Differential Diagnosis Differential Diagnosis: Esophageal stricture, esophageal food bolus, sulfa diet is, decreased p.o. intake Vital Signs Vital Signs: Vital Signs Temperature 97.8 F 09/19/24 09:09 Pulse Rate 97 09/19/24 09:09 Respiratory Rate 18 09/19/24 09:09 Blood Pressure 138/89 09/19/24 09:09 Pulse Oximetry 96 09/19/24 09:09 Oxygen Delivery Room Air 09/19/24 09:09 Temperature 97 F L 09/19/24 11:08 Pulse Rate 68 09/19/24 12:01 Respiratory Rate 22 H 09/19/24 12:01 Blood Pressure 124/90 09/19/24 12:01 Pulse Oximetry 100 09/19/24 12:01 Oxygen Delivery Room Air 09/19/24 12:01 Lab Data Lab results reviewed: Yes I reviewed the patient's lab results. 09/19/24 10:04 09/19/24 10:04 Labs: Lab Results 09/19/24 Range/Units 10:04 WBC 9.9 (4.5-10.0) K/mm3 RBC 4.59 (4.2-5.4) M/mm3 Hgb 14.8 (12.0-15.0) g/dL Hct 44.2 (37.0-47.0) % MCV 96.3 (80-100) fl MCH 32.2 (26-34) pg MCHC 33.5 (32-36) g/dl RDW 13.6 (11.5-14.5) % Plt Count 262 (150-375) k/mm3 MPV 10.8 H (7.4-10.4) fl Immature Gran % (Auto) 0.3 (0-0.5) % Neut % (Auto) 75.0 H (45.5-73.1) % Lymph % (Auto) 13.9 L (18.3-44.2) % Mcdowell % (Auto) 8.4 (2.6-8.5) % Eos % (Auto) 1.8 (0-4.4) % Baso % (Auto) 0.6 (0.2-1.2) % Lymph # (Auto) 1.37 (0.9-3.2) K/mm3 Mcdowell # (Auto) 0.8 H (0.1-0.6) K/mm3 Eos # (Auto) 0.2 (0-0.3) K/mm3 Baso # (Auto) 0.1 (0.0-0.1) K/mm3 Abs Immat Gran (auto) 0.03 (0.00-0.031) K/mm3 Absolute Neuts (auto) 7.4 H (1.3-6.7) K/mm3 Absolute Nucleated RBC 0.000 (0.0-0.012) K/mm3 Nucleated RBC % 0.0 (0.0-0.2) % PT 12.6 (11.1-14.7) Seconds INR 0.9 APTT 24.1 (22.3-36.8) Seconds Sodium 138 (137-145) mmol/L Potassium 4.2 (3.4-5.0) mmol/L Chloride 106 (98-107) mmol/L Carbon Dioxide 23 (22-30) mmol/L Anion Gap 9 (4-12) mmol/L BUN 15 D (7-17) mg/dL Creatinine 0.70 (0.7-1.0) mg/dL Estim Creat Clear Calc 52 ml/min Estimated GFR > 60 (59 - ) Glucose 91 (65-110) mg/dL Calcium 9.5 (8.4-10.2) mg/dL Total Bilirubin 0.7 (0.2-1.3) mg/dL AST 25 (14-36) U/L ALT 8 (6-35) U/L Alkaline Phosphatase 100 (38-126) U/L Total Protein 8.0 (6.3-8.2) g/dL Albumin 4.2 (3.5-5.1) g/dL Imaging Data Radiologist's impression: Impressions Chest X-Ray 09/19/24 10:01 Impression: Clear lungs. Probable COPD. Fracture of the surgical neck of the proximal right humerus again noted. Discharge Plan Discharge Clinical Impression: Esophageal obstruction due to food impaction Patient Disposition: Still a Patient Condition: Stable
[2024-09-19] MEDS: GLUCAGON FOR INJ 1 MG VIAL IM (10:10)
[2024-09-19 10:11] LABS: Basophils Absolute Auto 0.1 K/mm3 (0.0-0.1); Basophils Percent Auto 0.6 % (0.2-1.2); Eosinophils Absolute Auto 0.2 K/mm3 (0-0.3); Eosinophils Percent Auto 1.8 % (0-4.4); Hematocrit 44.2 % (37.0-47.0); Hemoglobin 14.8 g/dL (12.0-15.0); Immature Granulocyte Absolute 0.03 K/mm3 (0.00-0.031); Immature Granulocyte Percent A 0.3 % (0-0.5); Lymphocytes Absolute Auto 1.37 K/mm3 (0.9-3.2); Lymphocytes Percent Auto 13.9 % (18.3-44.2); Mean Corpuscular HGB Conc 33.5 g/dl (32-36); Mean Corpuscular Hemoglobin 32.2 pg (26-34); Mean Corpuscular Volume 96.3 fl (80-100); Mean Platelet Volume 10.8 fl (7.4-10.4); Monocytes Absolute Auto 0.8 K/mm3 (0.1-0.6); Monocytes Percent Auto 8.4 % (2.6-8.5); Neutrophils Absolute Auto 7.4 K/mm3 (1.3-6.7); Platelet Count Result 262 k/mm3 (150-375); Red Blood Count 4.59 M/mm3 (4.2-5.4); Red Cell Distribution Width 13.6 % (11.5-14.5); White Blood Count 9.9 K/mm3 (4.5-10.0)
[2024-09-19 10:25] LABS: Alanine Aminotransferase 8 U/L (6-35); Albumin Level 4.2 g/dL (3.5-5.1); Alkaline Phosphatase 100 U/L (38-126); Anion Gap 9 mmol/L (4-12); Aspartate Amino Transferase 25 U/L (14-36); Bilirubin,Total 0.7 mg/dL (0.2-1.3); Blood Urea Nitrogen 15 mg/dL (7-17); Calcium 9.5 mg/dL (8.4-10.2); Carbon Dioxide 23 mmol/L (22-30); Chloride 106 mmol/L (98-107); Estimated CRCL calculation 52 ml/min; Estimated Glomerular Filt Rate > 60; Glucose 91 mg/dL (65-110); Potassium 4.2 mmol/L (3.4-5.0); Sodium 138 mmol/L (137-145)
[2024-09-19 10:28] LABS: INR 0.9; Partial Thromboplastin Time 24.1 Seconds (22.3-36.8); Prothrombin Time 12.6 Seconds (11.1-14.7)
[2024-09-19 10:50] VITALS: BP 118/64; PULSE 79; RESP 18; O2SAT 98
[2024-09-19 11:08] VITALS: BP 148/84; PULSE 73; RESP 16; TEMP 36.1; O2SAT 100
--- NOTE | 2024-09-19 11:13 | P.PNAN_ITS ---
Anes - Initial Pre Proc Eval Procedure: Operation Date: 09/19/24 10:45 Proposed Procedures p Esophagogastroduodenoscopy - Luis Crowell MD Date/Time: 09/19/24 11:13 Surgeon: Luis Crowell MD Pre Op Diagnosis: trouble swallowing, food bolus Patient Data Age: 84 Gender: F Height: 1.65 m Weight: 77.5 kg Last Vital Signs Temp 36.6 C 09/19/24 09:09 Pulse 79 09/19/24 10:50 Resp 18 09/19/24 10:50 BP 118/64 09/19/24 10:50 Pulse Ox 98 09/19/24 10:50 O2 Del Method Room Air 09/19/24 09:09 Allergies Allergy/AdvReac Type Severity Reaction Status Date / Time No Known Allergies Allergy Verified 09/19/24 11:14 Home Medications Medication Instructions Recorded Confirmed Type simvastatin 10 mg tablet 10 mg PO HS 08/09/24 09/19/24 History hyoscyamine sulfate 0.125 mg 0.125 mg PO AC 30 days #90 tabs 08/11/24 09/19/24 Rx disintegrating tablet (Anaspaz) metoprolol succinate 25 mg 12.5 mg PO DAILY #45 tabs 09/02/24 09/19/24 Rx tablet,extended release 24 hr Laboratory Tests 09/19/24 10:04 WBC 9.9 K/mm3 (4.5-10.0) RBC 4.59 M/mm3 (4.2-5.4) Hgb 14.8 g/dL (12.0-15.0) Hct 44.2 % (37.0-47.0) MCV 96.3 fl (80-100) MCH 32.2 pg (26-34) MCHC 33.5 g/dl (32-36) RDW 13.6 % (11.5-14.5) Plt Count 262 k/mm3 (150-375) MPV 10.8 H fl (7.4-10.4) Immature Gran % (Auto) 0.3 % (0-0.5) Neut % (Auto) 75.0 H % (45.5-73.1) Lymph % (Auto) 13.9 L % (18.3-44.2) Pender % (Auto) 8.4 % (2.6-8.5) Eos % (Auto) 1.8 % (0-4.4) Baso % (Auto) 0.6 % (0.2-1.2) Lymph # (Auto) 1.37 K/mm3 (0.9-3.2) Pender # (Auto) 0.8 H K/mm3 (0.1-0.6) Eos # (Auto) 0.2 K/mm3 (0-0.3) Baso # (Auto) 0.1 K/mm3 (0.0-0.1) Abs Immat Gran (auto) 0.03 K/mm3 (0.00-0.031) Absolute Neuts (auto) 7.4 H K/mm3 (1.3-6.7) Absolute Nucleated RBC 0.000 K/mm3 (0.0-0.012) Nucleated RBC % 0.0 % (0.0-0.2) PT 12.6 Seconds (11.1-14.7) INR 0.9 APTT 24.1 Seconds (22.3-36.8) Sodium 138 mmol/L (137-145) Potassium 4.2 mmol/L (3.4-5.0) Chloride 106 mmol/L (98-107) Carbon Dioxide 23 mmol/L (22-30) Anion Gap 9 mmol/L (4-12) BUN 15 D mg/dL (7-17) Creatinine 0.70 mg/dL (0.7-1.0) Estim Creat Clear Calc 52 ml/min Estimated GFR > 60 (59 - ) Glucose 91 mg/dL (65-110) Calcium 9.5 mg/dL (8.4-10.2) Total Bilirubin 0.7 mg/dL (0.2-1.3) AST 25 U/L (14-36) ALT 8 U/L (6-35) Alkaline Phosphatase 100 U/L (38-126) Total Protein 8.0 g/dL (6.3-8.2) Albumin 4.2 g/dL (3.5-5.1) Patient hx anesthesia problems: none Family hx anesthesia problems: none Results Review: All pre-operative results and documents have been reviewed as part of the pre- operative evaluation. [facility] Past Medical History Medical History Hypercholesterolemia Hyperkalemia Hyperlipidemia Post-menopausal Urinary tract infection Vaginal prolapse 2012 Surgical History Surgical History H/O esophageal hernia repair Laparoscopic repair paraesophageal hiatal hernia, Walter fundoplication on 04/29/24 H/O: hysterectomy 1999 History of bladder surgery Bladder sling 1988 History of colon resection 1999 Family History Family History Mother Patient's mother is Sibling Acute myocardial infarction Father No problems noted. Social History Social History Smoking status: Never smoker Alcohol intake: current Alcohol use details: 2-3 glasses of wine per month Substance use: never Substance use type: does not use Do You Feel Safe in your Home?: Yes Lack of Transportation: No Lack of Food: Never True Current Housing: I Have Housing Concerned About Future Housing: No Difficulty Paying Gas/Electric Bills: No Difficulty Paying for Meds: No Currently Unemployed: No Education: High School Diploma/GED Difficulty w/ Childcare or Family Care: No Living arrangements: alone Spiritual care concerns: No Anes - Eval Final PreProcedure Day of Procedure 09/19/24 11:13 Patient weight: overweight Heart: regular rate and rhythm Lungs: clear to auscultation Airway: Mallampati scale class II Neurological: alert and oriented Last oral intake: >/= 8 hours ASA classification: III Emergent: yes Anesthetic plan: proceed Anesthesia type and monitoring: general ETT and standard monitoring Results Review: All pre-operative results and documents have been reviewed as part of the pre- operative evaluation. Informed Consent: The patient's anesthetic plan and its attendant risks and benefits were discussed with the patient/family/POA. Questions were solicited and answers provided to the satisfaction of the patient/family/POA.
[2024-09-19] MEDS: LACTATED RINGERS 1,000 ML 150 ML IV CONT (11:18)
--- NOTE | 2024-09-19 11:36 | P.HP_ITS ---
History of Present Illness History of Present Illness Consent: Risks, benefits, and alternatives have been discussed and questions answered. Patient agrees to proceed with procedure. Chief complaint: trouble swallowing, food bolus Narrative: Rosalba Paz is a 84 year old female here with food bolus, she had laparoscopic repair paraesophageal hiatal hernia, Watler fundoplication performed on 04/29/24, complaining of dysphagia (h/o esophageal ring dilated prev iously) here with unable to eat after had chicken. Medical treatment did not work in ER. Review of Systems Review of Systems: All systems reviewed & are unremarkable except as noted in HPI and below PMFSH Past Medical History Medical History Hypercholesterolemia Hyperkalemia Hyperlipidemia Post-menopausal Urinary tract infection Vaginal prolapse 2012 Surgical History Surgical History H/O esophageal hernia repair Laparoscopic repair paraesophageal hiatal hernia, Walter fundoplication on 04/29/24 H/O: hysterectomy 1999 History of bladder surgery Bladder sling 1988 History of colon resection 1999 Family History Family History Mother Patient's mother is Sibling Acute myocardial infarction Father No problems noted. Social History Social History Smoking status: Never smoker Alcohol intake: current Alcohol use details: 2-3 glasses of wine per month Substance use: never Substance use type: does not use Do You Feel Safe in your Home?: Yes Lack of Transportation: No Lack of Food: Never True Current Housing: I Have Housing Concerned About Future Housing: No Difficulty Paying Gas/Electric Bills: No Difficulty Paying for Meds: No Currently Unemployed: No Education: High School Diploma/GED Difficulty w/ Childcare or Family Care: No Living arrangements: alone Spiritual care concerns: No Meds Home Medications and Allergies Home Medications Medication Instructions Recorded Confirmed Type simvastatin 10 mg tablet 10 mg PO HS 08/09/24 09/19/24 History hyoscyamine sulfate 0.125 mg 0.125 mg PO AC 30 days #90 tabs 08/11/24 09/19/24 Rx disintegrating tablet (Anaspaz) metoprolol succinate 25 mg 12.5 mg PO DAILY #45 tabs 09/02/24 09/19/24 Rx tablet,extended release 24 hr Allergies Allergy/AdvReac Type Severity Reaction Status Date / Time No Known Allergies Allergy Verified 09/19/24 11:14 Vital Signs Vital Signs - 24 hr 09/19/24 09:09 09/19/24 10:50 09/19/24 11:08 Temperature 97.8 F 97 F L Pulse Rate 97 79 73 Respiratory Rate 18 18 16 Blood Pressure 138/89 118/64 148/84 H Pulse Oximetry 96 98 100 Oxygen Delivery Room Air Room Air 09/19/24 11:08 Temperature 97 F L Pulse Rate 73 Respiratory Rate 16 Blood Pressure 148/84 H Pulse Oximetry 100 Oxygen Delivery Room Air Exam Const: General: comfortable and no acute distress HENMT: Face/Nose/Sinus: Normal nares present Eyes: General: appearance normal, both eyes and all related structures Neck: Neck: no JVD Resp: Auscultation: clear to auscultation bilaterally Cardio: Rate: regular rate Rhythm: regular rhythm GI: Inspection: non-distended GI Palp: Yes Soft to palpation Skin: General skin exam: normal color Neuro: General: gait normal Speech: normal speech Extrem: General: normal to inspection Psych: Mental Status: mental status grossly normal Assessment and Plan Assessment and plan (1) Esophageal obstruction due to food impaction: Code(s): T18.128A - Food in esophagus causing other injury, initial encounter; W44.F3XA - Food entering into or through a natural orifice, initial encounter Status: Acute Assessment and Plan: urgent EGD (2) History of repair of hiatal hernia: Code(s): Z98.890 - Other specified postprocedural states; Z87.19 - Personal history of other diseases of the digestive system Status: Acute
[2024-09-19 11:41] VITALS: BP 101/59; PULSE 66; RESP 16; O2SAT 100
[2024-09-19 11:51] VITALS: BP 105/56; PULSE 57; RESP 14; O2SAT 100
[2024-09-19 12:01] VITALS: BP 124/90; PULSE 68; RESP 22; O2SAT 100
[2024-09-19 12:35] VITALS: BMI 28.4
== END 2024-09-19 12:29 | disposition home or self-care (01) ==
LOC: ANHED 10:03 → ANHENDO 10:08
PROVIDERS: Emergency Provider Emergency Medicine; PCP Clinical Nurse Specialist; Visit Provider Internal Medicine Gastroenterology
PROC: 0DJ08ZZ Inspection of Upper Intestinal Tract, Via Natural or Artificial Opening Endoscopic (ICD-10-PCS; CPT 43235; principal; 2024-09-19 10:45)
DX: T18.128A Food in esophagus causing other injury, initial encounter (principal); W44.F3XA Food entering into or through a natural orifice, initial encounter; K22.2 Esophageal obstruction; E78.00 Pure hypercholesterolemia, unspecified; E87.5 Hyperkalemia; N81.89 Other female genital prolapse; Z98.890 Other specified postprocedural states; Z90.49 Acquired absence of other specified parts of digestive tract; Z87.19 Personal history of other diseases of the digestive system; Z82.49 Family history of ischemic heart disease and other diseases of the circulatory system
CPT/HCPCS: 43247; 36415; 71045; 80053; 85025; 85610; 85730; 96372; 99285; J1610; J2003; J2704; J7120

== ENCOUNTER 2024-10-14 02:13 | Day surgery (SDC) | payer MEDICARE, SELFPAY ==
[2024-09-23 13:33] VITALS: BMI 25.7
[2024-10-14 11:38] VITALS: BP 167/97; PULSE 85; RESP 18; TEMP 36.4; O2SAT 97
[2024-10-14] MEDS: LACTATED RINGERS 1,000 ML 150 ML IV CONT (11:47)
--- NOTE | 2024-10-14 12:34 | WPDANESEPPF ---
Anes - Initial Pre Proc Eval Procedure: Operation Date: 10/14/24 13:00 Proposed Procedures p Esophagogastroduodenoscopy - Steve Werner MD Date/Time: 10/14/24 12:34 Surgeon: Steve Werner MD Pre Op Diagnosis: GERD/Dysphagia Patient Data Age: 84 Gender: F Height: 1.65 m Weight: 72 kg Last Vital Signs Temp 36.4 C L 10/14/24 11:38 Pulse 85 10/14/24 11:38 Resp 18 10/14/24 11:38 BP 167/97 H 10/14/24 11:38 Pulse Ox 97 10/14/24 11:38 O2 Del Method Room Air 10/14/24 11:38 Allergies Allergy/AdvReac Type Severity Reaction Status Date / Time No Known Allergies Allergy Verified 10/14/24 11:37 Home Medications Medication Instructions Recorded Confirmed Type simvastatin 10 mg tablet 10 mg PO HS 08/09/24 10/14/24 History hyoscyamine sulfate 0.125 mg 0.125 mg PO AC 30 days #90 tabs 08/11/24 10/14/24 Rx disintegrating tablet (Anaspaz) metoprolol succinate 25 mg 12.5 mg PO DAILY #45 tabs 09/02/24 10/14/24 Rx tablet,extended release 24 hr Patient hx anesthesia problems: none Family hx anesthesia problems: none Results Review: All pre-operative results and documents have been reviewed as part of the pre-operative evaluation. [facility] Past Medical History Medical History Hypercholesterolemia Hyperkalemia Hyperlipidemia Post-menopausal Urinary tract infection Vaginal prolapse 2012 Surgical History Surgical History H/O esophageal hernia repair Laparoscopic repair paraesophageal hiatal hernia, Walter fundoplication on 04/29/24 H/O: hysterectomy 1999 History of bladder surgery Bladder sling 1988 History of colon resection 1999 Family History Family History Mother Patient's mother is Sibling Acute myocardial infarction Father No problems noted. Social History Social History Smoking status: Never smoker Alcohol intake: never Alcohol use details: 2-3 glasses of wine per month Substance use: never Substance use type: does not use Do You Feel Safe in your Home?: Yes Lack of Transportation: No Lack of Food: Never True Current Housing: I Have Housing Concerned About Future Housing: No Difficulty Paying Gas/Electric Bills: No Difficulty Paying for Meds: No Currently Unemployed: No Education: High School Diploma/GED Difficulty w/ Childcare or Family Care: No Living arrangements: alone Spiritual care concerns: No Anes - Eval Final PreProcedure Day of Procedure 10/14/24 12:34 Patient weight: overweight Heart: regular rate and rhythm Lungs: normal air movement Airway: Mallampati scale class II Neurological: alert and oriented Last oral intake: >/= 8 hours ASA classification: III Emergent: no Anesthetic plan: proceed Anesthesia type and monitoring: general GIVS and standard monitoring Results Review: All pre-operative results and documents have been reviewed as part of the pre-operative evaluation. Informed Consent: The patient's anesthetic plan and its attendant risks and benefits were discussed with the patient/family/POA. Questions were solicited and answers provided to the satisfaction of the patient/family/POA.
--- NOTE | 2024-10-14 12:40 | P.HP_ITS ---
H&P: HPI History of Present Illness Date/Time: 10/14/24 12:40 Chief Complaint: Dysphagia Narrative: the patient had a Walter fundoplication in April this year for a large hiatal hernia. She did well, however over the past month she has been experiencing severe dysphagia to solids and liquids. Last month she had a food impaction event, requiring emergency EGD, were a ring-like stricture was evidenced, with significant concomitant inflammation. She is here for EGD. Of note, she has lost over 30 lb. Because of her inability to eat appropriately. Review of Systems Review of Systems: All systems reviewed & are unremarkable except as noted in HPI and below PMFSH Past Medical History Medical History Hypercholesterolemia Hyperkalemia Hyperlipidemia Post-menopausal Urinary tract infection Vaginal prolapse 2012 Surgical History Surgical History H/O esophageal hernia repair Laparoscopic repair paraesophageal hiatal hernia, Walter fundoplication on 04/29/24 H/O: hysterectomy 1999 History of bladder surgery Bladder sling 1988 History of colon resection 1999 Family History Family History Mother Patient's mother is Sibling Acute myocardial infarction Father No problems noted. Social History Social History Smoking status: Never smoker Alcohol intake: never Alcohol use details: 2-3 glasses of wine per month Substance use: never Substance use type: does not use Do You Feel Safe in your Home?: Yes Lack of Transportation: No Lack of Food: Never True Current Housing: I Have Housing Concerned About Future Housing: No Difficulty Paying Gas/Electric Bills: No Difficulty Paying for Meds: No Currently Unemployed: No Education: High School Diploma/GED Difficulty w/ Childcare or Family Care: No Living arrangements: alone Spiritual care concerns: No Meds Home Medications and Allergies Home Medications Medication Instructions Recorded Confirmed Type simvastatin 10 mg tablet 10 mg PO HS 08/09/24 10/14/24 History hyoscyamine sulfate 0.125 mg 0.125 mg PO AC 30 days #90 tabs 08/11/24 10/14/24 Rx disintegrating tablet (Anaspaz) metoprolol succinate 25 mg 12.5 mg PO DAILY #45 tabs 09/02/24 10/14/24 Rx tablet,extended release 24 hr Allergies Allergy/AdvReac Type Severity Reaction Status Date / Time No Known Allergies Allergy Verified 10/14/24 11:37 Vital Signs Vital Signs - 24 hr 10/14/24 11:38 Temperature 97.5 F L Pulse Rate 85 Respiratory Rate 18 Blood Pressure 167/97 H Pulse Oximetry 97 Oxygen Delivery Room Air Exam 2 Const: General: cooperative and healthy appearing Resp: Effort & Inspection: normal respiratory effort and able to speak in complete sentences Auscultation: clear to auscultation bilaterally Cardio: Rate: regular rate Rhythm: regular rhythm GI: Inspection: normal to inspection GI Palp: No No hepatosplenomegaly present Auscultation: normal bowel sounds Rectal Exam: deferred Skin: General skin exam: normal color Psych: Appearance: grossly normal Mental Status: mental status grossly normal Assessment and Plan Assessment and plan (1) History of Walter fundoplication: Code(s): Z98.890 - Other specified postprocedural states Status: Acute Assessment and Plan: The patient is deemed a good candidate for the procedure. Consent signed. Will proceed.
[2024-10-14 13:03] VITALS: BP 94/50; PULSE 67; RESP 18; O2SAT 95
[2024-10-14 13:13] VITALS: BP 115/79; PULSE 74; RESP 20; O2SAT 96
[2024-10-14 13:23] VITALS: BP 126/83; PULSE 80; RESP 20; O2SAT 97
== END 2024-10-14 13:42 | disposition home or self-care (01) ==
PROVIDERS: PCP Clinical Nurse Specialist; Referring Provider Nurse Practitioner Family; Visit Provider Internal Medicine Gastroenterology
PROC: 0DJ08ZZ Inspection of Upper Intestinal Tract, Via Natural or Artificial Opening Endoscopic (ICD-10-PCS; CPT 43235; principal; 2024-10-14 13:00)
DX: K22.2 Esophageal obstruction (principal); K44.9 Diaphragmatic hernia without obstruction or gangrene; E78.00 Pure hypercholesterolemia, unspecified; Z98.890 Other specified postprocedural states
CPT/HCPCS: 43249; C1726; J2003; J2704; J7120

== ENCOUNTER 2025-01-06 12:40 | Outpatient (CLI) | payer MEDICARE, SELFPAY ==
[2025-01-06 15:02] LABS: Basophils Absolute Auto 0.1 K/mm3 (0.0-0.1); Basophils Percent Auto 0.8 % (0.2-1.2); Eosinophils Absolute Auto 0.2 K/mm3 (0-0.3); Eosinophils Percent Auto 2.2 % (0-4.4); Hematocrit 43.5 % (37.0-47.0); Hemoglobin 13.9 g/dL (12.0-15.0); Immature Granulocyte Absolute 0.02 K/mm3 (0.00-0.031); Immature Granulocyte Percent A 0.2 % (0-0.5); Lymphocytes Absolute Auto 2.06 K/mm3 (0.9-3.2); Lymphocytes Percent Auto 23.8 % (18.3-44.2); Mean Corpuscular Hemoglobin 31.5 pg (26-34); Mean Corpuscular Volume 98.6 fl (80-100); Mean Platelet Volume 10.7 fl (7.4-10.4); Monocytes Absolute Auto 0.8 K/mm3 (0.1-0.6); Monocytes Percent Auto 9.2 % (2.6-8.5); Neutrophils Absolute Auto 5.5 K/mm3 (1.3-6.7); Neutrophils Percent Auto 63.8 % (45.5-73.1); Platelet Count Result 267 k/mm3 (150-375); Red Blood Count 4.41 M/mm3 (4.2-5.4); Red Cell Distribution Width 13.5 % (11.5-14.5); White Blood Count 8.7 K/mm3 (4.5-10.0)
[2025-01-06 15:13] LABS: Alanine Aminotransferase 9 U/L (6-35); Albumin Level 4.2 g/dL (3.5-5.1); Alkaline Phosphatase 94 U/L (38-126); Anion Gap 8 mmol/L (4-12); Aspartate Amino Transferase 26 U/L (14-36); Bilirubin,Total 0.7 mg/dL (0.2-1.3); Blood Urea Nitrogen 13 mg/dL (7-17); Carbon Dioxide 29 mmol/L (22-30); Chloride 102 mmol/L (98-107); Estimated Glomerular Filt Rate > 60; Glucose 91 mg/dL (65-110); Potassium 4.7 mmol/L (3.4-5.0); Sodium 139 mmol/L (137-145)
== END 2025-01-06 12:41 | disposition home or self-care (01) ==
PROVIDERS: PCP Clinical Nurse Specialist; Visit Provider Surgery
DX: Z01.818 Encounter for other preprocedural examination (principal); K44.9 Diaphragmatic hernia without obstruction or gangrene; I44.4 Left anterior fascicular block; R94.31 Abnormal electrocardiogram [ECG] [EKG]
CPT/HCPCS: 36415; 71046; 80053; 85025; 93005

== ENCOUNTER 2025-01-12 13:17 | Inpatient (IN) | payer MEDICARE, SELFPAY ==
[2024-12-30 13:35] VITALS: BMI 25.7
--- NOTE | 2024-12-30 14:02 | PC.NURSE ---
Report to the Outpatient Waiting Room, entrance under the green pavilion located off [facility], at time ___10:00AM____ on date ___01/11/25____. Planned Procedure Time: ___12:00PM .? Time changes happen often and if your time is changed the preop area will call you the afternoon before. - You and your visitor will be asked to self-screen and do not enter if you have any COVID symptoms. Please call surgeon if you need to reschedule. - A mask is optional within the hospital at this time. Patients may have clear liquids (water, carbonated beverages, clear teas, apple juice) until 3 hours prior to surgery (9:00AM) with a maximum of 20 ounces. - No food from midnight until time of surgery and no smoking, or chewing tobacco (or any form of nicotine). No chewing gum, candy or mints. Take only the following medications with a SIP of water on the morning of surgery: ____METOPROLOL DO NOT STOP ANY OF YOUR OTHER PRESCRIPTION MEDICATIONS PRIOR TO SURGERY EXCEPT THE FOLLOWING Hold all vitamins and supplements for 3 days per anesthesiologist. Medications to discontinue per physician NONE Date to take last dose Please no make-up, nail kinyarwanda, hairspray, perfume, deodorant, or body powder the day of surgery.? No jewelry (including any body piercings) or valuables the day of surgery, leave them at home.? Please take a shower or bath the night before, or the morning of, surgery with an antibacterial soap.? Wear comfortable, loose fitting clothing.? - Jewelry must be removed prior to entering the operating room.? Rings and piercings that are not removed may be cut off. - The hospital will not accept responsibility for valuables.? - Please leave all valuables, including medications, at home the day of surgery. If you are going home after surgery, a licensed driver merchandiser must drive you home.? - NO public transportation without another adult if you receive anesthesia. - We recommend that an adult stay with you for 24 hours following discharge. - We also recommend that you do not drive, make important decision, drink alcoholic beverages, or take any drugs that were not prescribed by your health care provider for at least 24 hours after your discharge time. Follow any additional instructions given to you from your surgeon. Telephone instructions given to ____PATIENT and asked if any additional questions and then verbalized understanding. Patient advised to call surgeon office or pre surgery nurse liaison [phone] if any additional questions.
[2025-01-11] VITALS (16 sets, daily range): BP systolic 90–151; BP diastolic 55–93; PULSE 78–102; RESP 14–20; TEMP 36.3–36.9; O2SAT 92–100; BMI 27.0; BMI 29.6
--- OUTSIDE RECORDS SUMMARY | 2025-01-11 00:56 | XMS_ITS | Referral Summary ---
Author Organization [facility] Address [address] [place] [address] Care Team Providers Care School Nurse Name Role Phone Unavailable Primary Care Provider Unavailabl e Source Comments [facility],non-owned Affiliates and Associated Physician Practices is amultiple site organization consisting of ambulatory clinics and hospital sitesin [place], [place], [place] and [place]. This disclosure is being madepursuant to the Care Everywhere program and may not contain all information available regarding this patient. Last updated 18.[facility] Encounters Date Type Department Care Team Description 12/09/2024 Travel 12/09/2024 1:30 PM MID LEVEL NET DEVELOPER - 12/09/2024 3:10 PM MID LEVEL NET DEVELOPER Surgery [facility] [address] [place] [address] Procedure, Nursing G_I GASTRIC MOTILITY STUDY 12/09/2024 12:17 PM MID LEVEL NET DEVELOPER - 12/09/2024 2:50 PM [facility] Hospital Encounter [facility] [address] [place] [address] Antwon Lewis MD Surgery General Discharge Disposition: Home or Self Care 11/09/2024 Telephone [facility] [address] [place] [address] Ezequiel Delgado, RN Scheduling Outreach (Attempt to reschedule cancelled appt) from Last 3 Months Allergies No known active allergies Medications * Be aware that medications may not be up to date on this document. Alwaysverify current medications with the patient. Medication Sig Dispensed Refills Start Date End Date Status esomeprazole (NexIUM) 40 MG capsule Take 1 (one) capsule by mouth as needed Active metoprolol succinate XL 24hr (Toprol XL) 25 MG tablet Take 0.5 (one-half) tablet by mouth once daily 09/02/2024 Active simvastatin (Zocor) 10 MG tablet Take 1 (one) tablet by mouth at bedtime 03/19/2024 Active Immunizations Name Administration Dates Next Due INFLUENZA VACCINE, HIGH-DOSE , QUADR. (FLUZONE HIGH-DOSE QUADRIVALENT; 65Y+), 0.7 ML (HD-IIV4) 08/19/2019 Social History Tobacco Use Types Packs/Day Years Used Date Smoking Tobacco: Never Smokeless Tobacco: Never Tobacco Cessation:Counseling Given: Not Answered Alcohol Use Standard Drinks/Week Comments Yes 0 (1 standard drink = 0.6 oz pur e alcohol) rare Sex and Gender Information Value Date Recorded Sex Assigned at Not on file Gender Identity Not on file Sexual Orientation Not on file Plan of Treatment Not on file Procedures Procedure Name Priority Date/Time Associated Diagnosis Comments OK ESOPHAGUS MOTILITY STUDY 12/09/2024 1:28 PM MID LEVEL NET DEVELOPER History of Walter fundoplication from Last 3 Months Rosalba Paz Personal/Family Self 1940
--- OUTSIDE RECORDS SUMMARY | 2025-01-11 00:56 | XMS_ITS | Referral Summary ---
Author Organization [facility] Address [address] [place] [address] Care Team Providers Care Unit Nurse Name Role Phone Geovanni Ellis DO Primary Care Provider [phone]- [phone] Allergies No known active allergies Medications meloxicam (MOBIC) 15 mg tablet Take 1 tablet by mouth daily 02/18/2018 Active metoprolol (LOPRESSOR) 25 mg tablet Active esomeprazole DR (NexIUM) 40 mg capsule Active simvastatin (ZOCOR) 80 mg tablet Active simvastatin (ZOCOR) 10 mg tablet 04/03/2018 Active hyoscyamine (OSCIMIN) 0.125 mg TAKE 0.125 MG ORALLY BEFORE MEALS FOR 30 DAYS 08/11/2024 Active metoprolol XL (TOPROL-XL) 25 mg extended release tablet Take 0.5 tablets (12.5 mg total) by mouth daily 09/02/2024 Active Active Problems Problem Noted Date Diagnosed Date Pulmonary nodule 09/23/2024 Immunizations Immunization Administration Dates Next Due Influenza, Quad, Adjuvantate d, Intramuscular 09/19/2023,08/16/2020 Influenza, Quadrivalent, Hig h Dose, Preservative Free, Intrr 08/14/2022,08/22/2021 Influenza, Trivalent, High D ose, Split, Preservative Free, Intramuscular 08/11/2024,08/19/2019,08/21/2017,08/23 Pneumococcal Polysaccharide PPV23 09/28/2020 RSV Vaccine, Pref, Recombina nt, Subunit, Adjuvanted, PF, IM (Arexvy) 11/21/2023 ZOSTER LIVE 07/15/2014 Social History Tobacco Use Types Packs/Day Years Used Date Smoking Tobacco: Never Smokeless Tobacco: Never Tobacco Cessation:Counseling Given: Not Answered Comments Unknown Sex and Gender Information Value Date Recorded Sex Assigned at Not on file Legal Sex Female 10:06 AM CDT Gender Identity Not on file Sexual Orientation Not on file Last Filed Vital Signs Vital Sign Reading Time Taken Comments Blood Pressure 133/85 09/24/2024 9:29 AM COMPUTER NETWORK SUPPORT SPECIALIST Pulse 89 09/24/2024 9:29 AM COMPUTER NETWORK SUPPORT SPECIALIST Temperature 36.1 C (97 F) 09/24/2024 9:29 AM COMPUTER NETWORK SUPPORT SPECIALIST Respiratory Rate 16 09/24/2024 9:29 AM COMPUTER NETWORK SUPPORT SPECIALIST Oxygen Saturation 98% 09/24/2024 9:29 AM COMPUTER NETWORK SUPPORT SPECIALIST Inhaled Oxygen Concentration - - Weight 72.4 kg (159 lb 9.6 oz) 09/24/2024 9:29 A M COMPUTER NETWORK SUPPORT SPECIALIST Height 165.1 cm (5' 5 ) 09/24/2024 9:29 AM COMPUTER NETWORK SUPPORT SPECIALIST Body Mass Index 26.56 09/24/2024 9:29 AM COMPUTER NETWORK SUPPORT SPECIALIST Plan of Treatment Not on file Insurance [place] [employer] [facility] [employer] [place] [employer] [facility] [employer] Care Teams Unit Nurse Relationship Specialty Start Date End Date Geovanni Ellis DO PCP - General 03/27/18
--- OUTSIDE RECORDS SUMMARY | 2025-01-11 00:56 | XMS_ITS | Patient Health Summary ---
Author Organization [facility] Address [address] [place] [address] Care Team Providers Care Laboratory Tech Name Role Phone Unavailable Primary Care Provider Unavailabl e Note from [facility],non-owned Affiliates and Associated Physician Practices is amultiple site organization consisting of ambulatory clinics and hospital sitesin [place], [place], [place] and [place]. This disclosure is being madepursuant to the Care Everywhere program and may not contain all information available regarding this patient. Last updated 18.[facility] Allergies No known active allergies Medications * Be aware that medications may not be up to date on this document. Alwaysverify current medications with the patient. * esomeprazole (NexIUM) 40 MG capsule Take 1 (one) capsule by mouth as needed * metoprolol succinate XL 24hr (Toprol XL) 25 MG tablet(Started 09/02/2024) Take 0.5 (one-half) tablet by mouth once daily * simvastatin (Zocor) 10 MG tablet(Started 03/19/2024) Take 1 (one) tablet by mouth at bedtime Immunizations * INFLUENZA VACCINE, HIGH-DOSE, QUADR. (FLUZONE HIGH-DOSE QUADRIVALENT; 65Y+), 0.7 ML (HD-IIV4)(Given 08/19/2019) Social History Tobacco Use Types Packs/Day Years Used Date Smoking Tobacco: Never Smokeless Tobacco: Never Tobacco Cessation:Counseling Given: Not Answered Alcohol Use Standard Drinks/Week Comments Yes 0 (1 standard drink = 0.6 oz pur e alcohol) rare Sex and Gender Information Value Date Recorded Sex Assigned at Not on file Gender Identity Not on file Sexual Orientation Not on file Procedures * MA ESOPHAGUS MOTILITY STUDY(Performed 12/09/2024) Performed for History of Walter fundoplication
--- OUTSIDE RECORDS SUMMARY | 2025-01-11 00:56 | XMS_ITS | Clinical Summary ---
Author Organization [facility] [employer] Address [address] [place] [address] Care Team Providers Care County Court Judge Name Role Phone Unavailable Primary Care Provider Unavailabl e Source Comments [facility] [employer],non-owned Affiliates and Associated Physician Practices is amultiple site organization consisting of ambulatory clinics and hospital sitesin [place], [place], [place] and [place]. This disclosure is being madepursuant to the Care Everywhere program and may not contain all information available regarding this patient. Last updated 18.[employer] [facility] Allergies No known active allergies Medications * [...] tablet by mouth at bedtime 03/19/2024 Active Encounters Date Type Department Care Team Description 12/09/2024 1:30 PM CITY LETTER CARRIER - 12/09/2024 3:10 PM CITY LETTER CARRIER Surgery [facility] [address] [place] [id number] Procedure, Nursing G_I GASTRIC MOTILITY STUDY 12/09/2024 12:17 PM CITY LETTER CARRIER - 12/09/2024 2:50 PM CITY LETTER CARRIER Hospital Encounter [facility] [address] [place] [phone] Antwon Lewis MD Surgery General Discharge Disposition: Home or Self Care 12/09/2024 Travel 11/09/2024 Telephone [facility] [address] [place] [address] Ezequiel Delgado, RN Scheduling Outreach (Attempt to reschedule cancelled appt) from Last 3 Months Immunizations Name Administration Dates Next Due INFLUENZA [...] Orientation Not on file Plan of Treatment Health Maintenance Due Date Last Done Comments BONE DENSITY TESTING 1940 DTAP/TDAP/TD VACCINES (1 - Tdap) 1958 PNEUMOCOCCAL VACCINE 50+ (1 of 1 - PCV) 1989 ZOSTER VACCINE (1 of 2) 1989 Respiratory Syncytial Virus (RSV) Vaccine Pt: or over 60 yrs (1 - 1-dose 75+ series) 2014 COVID-19 VACCINE ( - season) 2024 DEPRESSION SCREENING 11/10/2024 MEDICARE AWV CALENDAR YEAR 2024 INFLUENZA VACCINE Completed 08/11/2024, , 08/21/2017, Additional history exists HEPATITIS B VACCINE Aged Out No longe r eligible based on patient's age to complete this topic HIB VACCINE Aged Out No longer eligi ble based on patient's age to complete this topic HPV VACCINE Aged Out No longer eligi ble based on patient's age to complete this topic MENINGOCOCCAL (Group B) VACCINE Aged Out No longer eligible based on patient's age to complete this topic MENINGOCOCCAL VACCINE Aged Out No jeniffer william eligible based on patient's age to complete this topic Procedures Procedure Name Priority Date/Time Associated Diagnosis Comments GA ESOPHAGUS MOTILITY STUDY 12/09/2024 1:28 PM CITY LETTER CARRIER History of Walter fundoplication from Last 3 Months Rosalba Paz Personal/Family Self 1940
--- OUTSIDE RECORDS SUMMARY | 2025-01-11 00:56 | XMS_ITS | Clinical Summary ---
Author Organization [facility] Address [address] [place] [address] Care Team Providers Care Tower Loader Operator Name Role Phone Geovanni Ellis DO Primary Care Provider +1- [phone] Allergies No known active allergies Medications meloxicam [...] PF, IM (Arexvy) 11/21/2023 ZOSTER LIVE 07/15/2014 Surgical History Surgery Date Site/Laterality Comments PARAESOPHAGEAL HERNIA REPAIR 11/10/2023 - 11/09/2024 Walter fundoplication, laparoscopic HYSTERECTOMY 11/10/1999 - 11/09/2000 INCONTINENCE SURGERY 11/10/1988 - 11/09/1989 COLECTOMY Medical History Medical History Date Comments Hypercholesteremia Hyperkalemia Hyperlipidemia Urinary tract infection Vaginal prolapse Cardiac arrhythmia Family History Medical History Relation Name Comments Heart disease Brother Family history of cardiac disorder - (Added by TW Conv) Alcohol abuse Father Family history of alcoholism - (Added by TW Conv) Heart disease Sister 1 Family history of cardiac disorder - (Added by TW Conv) Cancer Sister 2 Family history of malignant neoplasm - (Added by TW Conv) Relation Name Status Comments Brother Father Mother Sister 1 Sister 2 Social History Tobacco Use Types Packs/Day Years Used Date Smoking Tobacco: Never Smokeless Tobacco: Never Tobacco Cessation:Counseling Given: Not Answered Comments Unknown Sex and Gender Information Value Date Recorded Sex Assigned at Not on file Legal Sex Female 10:06 AM CDT Gender Identity Not on file Sexual Orientation Not on file Obstetrics History Last Filed Vital Signs Vital Sign Reading Time Taken Comments Blood Pressure 133/85 09/24/2024 9:29 AM GIANT TIRE REPAIRER Pulse 89 09/24/2024 9:29 AM GIANT TIRE REPAIRER Temperature 36.1 C (97 F) 09/24/2024 9:29 AM GIANT TIRE REPAIRER Respiratory Rate 16 09/24/2024 9:29 AM GIANT TIRE REPAIRER Oxygen Saturation 98% 09/24/2024 9:29 AM GIANT TIRE REPAIRER Inhaled Oxygen Concentration - - Weight 72.4 kg (159 lb 9.6 oz) 09/24/2024 9:29 A M GIANT TIRE REPAIRER Height 165.1 cm (5' 5 ) 09/24/2024 9:29 AM GIANT TIRE REPAIRER Body Mass Index 26.56 09/24/2024 9:29 AM GIANT TIRE REPAIRER Plan of Treatment Health Maintenance Due Date Last Done Comments Depression Screening 1940 Fall Risk Assessment 1940 Osteoporosis Screening-Bone Density Scan 1940 DTaP/Tdap/Td Vaccine (1 - Tdap) 1950 Hepatitis B Screening 1957 Well Visit 65+ 2004 Zoster Vaccine (2 of 3) 09/09/2014 07/15/2014 Pneumococcal vaccine 65+ (2 of 2 - PCV) 09/28/2021 09/28/2020 Covid-19 Vaccine (6 - 2023-2 5 season) 2024 09/19/2023, 10/09/2022, 10/29/2021, Additional history exists Influenza Vaccine Completed 08/11/2024, , 08/14/2022, Additional history exists Insurance [facility] [place] [employer] [facility] Care Teams Tower Loader Operator Relationship Specialty Start Date End Date Geovanni Ellis DO PCP - General 03/27/18
--- OUTSIDE RECORDS SUMMARY | 2025-01-11 00:56 | XMS_ITS | Clinical Summary ---
Author Organization [facility] Address [address] [place] [id number] Care Team Providers Care Private Duty Lpn Name Role Phone Unavailable Primary Care Provider Unavailabl e Social History Tobacco Use Types Packs/Day Years Used Date Smoking Tobacco: Never Assessed Comments Unknown Sex and Gender Information Value Date Recorded Sex Assigned at Not on file Legal Sex Female 7:46 PM CDT Gender Identity Not on file Sexual Orientation Not on file Last Filed Vital Signs Vital Sign Reading Time Taken Comments Blood Pressure 130/74 06/28/2013 11:03 AM CDT Pulse 76 06/28/2013 11:03 AM CDT Temperature - - Respiratory Rate - - Oxygen Saturation - - Inhaled Oxygen Concentration - - Weight 88.5 kg (195 lb) 06/28/2013 11:03 AM CDT Height 167.6 cm (5' 6 ) 06/28/2013 11:03 AM CDT Body Mass Index 31.47 06/28/2013 11:03 AM CDT Plan of Treatment Health Maintenance Due Date Last Done Comments DTaP, Tdap and Td Vaccines ( 1 - Tdap) 1958 Zoster Vaccines (1 of 2) 1989 Pneumococcal Vaccine: 65+ Ye ars (1 of 1 - PCV) 2004 RSV Immunization or 60+ Years (1 - 1-dose 75+ series) 2014 COVID-19 Vaccine ( - 2023-2 5 season) 2024 Influenza Adult (#1) 2024 08/25/2012 Meningococcal B Vaccine Aged Out No l onger eligible based on patient's age to complete this topic Meningococcal Vaccine Aged Out No jeniffer william eligible based on patient's age to complete this topic RSV Immunizations Under 20 Months Aged Out No longer eligible based on patient's age to complete this topic Advance Directives Documents on File Type Date Recorded Patient Security Systems Sales Representative Expl anation Advance Directives and Living Will 05/03/2017 12:00 AM ADVANCED DIRECTIVES
[2025-01-11] MEDS: ACETAMINOPHEN 500 MG TABLET 1000 MG PO (10:54)
[2025-01-11] MEDS: KETOROLAC 15 MG/ML VIAL (*BKC) IV PUSH (10:54)
[2025-01-11] MEDS: LACTATED RINGERS 1,000 ML 30 ML IV CONT ×2 (10:55→18:23)
--- NOTE | 2025-01-11 11:20 | P.PNAN_ITS ---
Anes - Initial Pre Proc Eval Procedure: Operation Date: 01/11/25 12:00 Proposed Procedures p Robotic Repair Recurrent Hiatal Hernia with Fundoplication - Ibrahima Hernandez MD Date/Time: 01/11/25 11:20 Surgeon: Ibrahima Hernandez MD Pre Op Diagnosis: Recurrent Hiatal Hernia Patient Data Age: 85 Gender: F Height: 1.65 m Weight: 73.6 kg Last Vital Signs Temp 36.5 C 01/11/25 09:45 Pulse 78 01/11/25 09:45 Resp 16 01/11/25 09:45 BP 151/77 H 01/11/25 09:45 Pulse Ox 100 01/11/25 09:45 O2 Del Method Room Air 01/11/25 09:45 Allergies Allergy/AdvReac Type Severity Reaction Status Date / Time No Known Allergies Allergy Verified 01/11/25 11:11 Home Medications ?Medication ?Instructions ?Recorded ?Confirmed ?Type simvastatin 10 mg tablet 10 mg PO HS 08/09/24 12/30/24 History metoprolol succinate 25 mg 12.5 mg (1/2 x 25 mg) PO DAILY #45 09/02/24 01/11/25 Rx tablet,extended release 24 hr tabs esomeprazole magnesium 20 mg 20 mg PO DAILY 12/30/24 12/30/24 History capsule,delayed release (Nexium) Patient hx anesthesia problems: none Family hx anesthesia problems: none Results Review: All pre-operative results and documents have been reviewed as part of the pre- operative evaluation. [facility] Past Medical History Medical History Hiatal hernia recurrent Urinary tract infection Vaginal prolapse 2012 Hypercholesterolemia Hyperkalemia Hyperlipidemia Post-menopausal Surgical History Surgical History H/O esophageal hernia repair Laparoscopic repair paraesophageal hiatal hernia, Walter fundoplication on 04/29/24 History of colon resection 1999 History of bladder surgery Bladder sling 1988 H/O: hysterectomy 1999 Family History Family History Mother Patient's mother is Sibling Acute myocardial infarction Father No problems noted. Social History Social History Smoking status: Never smoker Alcohol intake: never Alcohol use details: 2-3 glasses of wine per month Substance use: never Substance use type: does not use Do You Feel Safe in your Home?: Yes Lack of Transportation: No Lack of Food: Never True Current Housing: I Have Housing Concerned About Future Housing: No Difficulty Paying Gas/Electric Bills: No Difficulty Paying for Meds: No Currently Unemployed: No Education: High School Diploma/GED Difficulty w/ Childcare or Family Care: No Living arrangements: alone Additional living arrangements comments: SON AND [id number] LIVE NEXT TO PATIENT Spiritual care concerns: No Anes - Eval Final PreProcedure Day of Procedure 01/11/25 11:20 Patient weight: overweight Heart: regular rate and rhythm Lungs: clear to auscultation Airway: Mallampati scale class II Neurological: alert and oriented Last oral intake: >/= 8 hours ASA classification: III Emergent: no Anesthetic plan: proceed Anesthesia type and monitoring: general ETT and standard monitoring Results Review: All pre-operative results and documents have been reviewed as part of the pre- operative evaluation. Informed Consent: The patient's anesthetic plan and its attendant risks and benefits were discussed with the patient/family/POA. Questions were solicited and answers provided to the satisfaction of the patient/family/POA.
--- NOTE | 2025-01-11 11:44 | WPDHPUPDATE1 ---
History and Physical Update Update Date/Time: 01/11/25 11:44 History and Physical has been reviewed, including an updated exam of the patient. There are NO changes in the patient's condition. Risks, benefits, and alternatives have been discussed and questions answered. Patient agrees to proceed with procedure.
[2025-01-11] MEDS: ceFAZolin 2 GM/D5W 50 ML 2 GM/50 ML BAG IVPB (11:56)
[2025-01-11] MEDS: BUPIVACAINE/EPINEPHRINE 0.5% 50 ML VIAL 40 ML INFILTRATE (13:01)
[2025-01-11] MEDS: ceFAZolin SODIUM 1 GM VIAL IV PUSH (15:55)
--- NOTE | 2025-01-11 18:22 | W.PM.PROC2 ---
Procedure Note - Detailed Date of Procedure 01/11/25 Pre-op Diagnosis Recurrent Hiatal Hernia, dysphagia Post-op Diagnosis Same Procedure Performed Repair recurrent hiatal hernia with partial fundoplication Surgeon Ibrahima Hernandez MD Director Of Revenue Cycle Management Rickie LOPEZ, Kylah LOPEZ Anesthesia General Indications Patient is an 85-year-old woman who 9 months ago underwent laparoscopic repair of a large paraesophageal hiatal hernia with intrathoracic stomach. She has been troubled with dysphagia and troubled eating which has not responded to esophageal dilation. She has had extensive testing which has shown a small recurrent paraesophageal hiatal hernia and poor esophageal motility. Esophageal motility studies suggest stricture at the site of the previous repair. After lengthy discussion and workup, patient is taken to surgery now for robotic laparoscopic repair recurrent paraesophageal hiatal hernia with dysphagia. Findings Procedure was difficult as there were quite a few anterior abdominal wall omental adhesions as well as adhesions of the previous fundoplication to the under surface of the lateral segment of the left lobe of the liver. Particularly troublesome was that the adhesions of the previous fundoplication were particularly dense. Despite best efforts to avoid injury to the stomach or esophagus, a couple of holes were made in the stomach that had to be repaired. A pexied partial fundoplication was able to be performed as planned. At surgery took nearly 6 hours which is at least twice as long as usual. Blood loss was 150 cc which is 5 times more than usual. Description of Procedure The patient was taken to surgery and induced into general anesthesia. Zuniga catheter was placed. The entire abdomen was prepped and draped. Local anesthetic was infiltrated in the left upper quadrant. Incision was made in the varies needle was introduced. Insufflation was carried out without difficulty. A 5 mm applied Medical optical trocar was then placed. It was immediately noticed that there were numerous anterior abdominal wall omental and some bowel adhesions. We placed a left lower quadrant 5 mm port as well as a left lateral 5 mm port. From here the adhesions were able to be taken down with sharp dissection and minimal cautery. Once these adhesions were down, there were still adhesions in the area of the hiatus but these were more expected. We left the left lower quadrant [address] and insufflated from here. The left lateral and left upper quadrant ports were converted to 8 mm robotic ports. Patient was placed in 30 degree reverse Trendelenburg. An epigastric port and a right subcostal port were then placed. These were both 8 mm robotic ports. Finally a 10 11 port was placed just above the umbilicus for the showroom sales assistant port. Prior to each port placement, local anesthetic was infiltrated into the skin and the subcutaneous. With the robotic trocars in place, the robot was brought into the field and the camera was docked. Camera was targeted. The operating ports were then placed with the right upper quadrant port being the short grasping retractor. The epigastric port was the cadiere grasper. The camera was in the left upper quadrant port and the vessel sealer was in the left lateral port. The surgeon then went to the robotic console. We started taking down some of the adhesions of the fundoplication to the liver. However, the vessel sealer was not suitable for this fine dissection. I switched to the monopolar scissors and then continued the dissection. Cautery was used for hemostasis. Eventually the undersurface of the lateral segment of the left lobe of the liver was cleared of the fundoplication. I was able to use the short grasping retractor to elevate the lateral segment of the liver. I then set about identifying the left and right laith as well as freeing the fundoplication from adhesions to surrounding structures. There was plenty of intra-abdominal esophagus but the esophagus was angulated with being angled posterior and to the left as it came through the hiatus. Either this or the wrap itself would seem to be the most likely cause for the dysphagia. Once the wrap was freed circumferentially, I then freed the right laith and looked to the apex of the hiatus. I pulled down the hernia sac and began dissecting above and around the hernia sac. The sac was very flimsy. I was able to dissect out a fairly small hernia sac and discarded it. Was also able to dissect the esophagus free from the Crura without difficulty. I then dissected in the mediastinum clearing some additional esophagus so that at least 4 cm of esophagus was intra-abdominal. The previously placed wrap was low on the esophagus and and possibly slipped down onto the top of the stomach. I could see the suture line of the previous fundoplication. I then began trying to take down the fundoplication. This was done with blunt and sharp dissection. Although great care was taken to avoid any injury, a couple of openings into the stomach were created. These were in the fundoplication itself. It was still necessary to take down the fundoplication and identify the angle of Hiss and distal esophagus. I did persever with continuing the dissection until all the relevant anatomic structures were delineated. There were 2 openings in the stomach both in the portion of the fundoplication that was on the right side of the esophagus. One of these was near the edge. This area could be stapled and excised fairly easily. I used the Intuitive Tutor Troveform 60 stapler and divided most of the injured area. A reload and a 2nd firing was needed to complete the closure of the stomach and removal of the edge associated with the gastrotomy. The edges of of the stomach that had been excised were passed off and discarded. Second hole was fairly close to the esophagus. It was really not amenable to a stapling procedure. To close this I used running bidirectional inverting or Pateros sutures to close the inner layer. This was done with 4-0 Vicryl. I then placed a 2nd outer layer of closure with seromuscular Lembert sutures of interrupted 4-0 Vicryl. This provided an adequate closure and left a considerable portion of the fundoplication on the right side. During the closure of the 2nd gastrotomy, a nasogastric tube was placed in the stomach under direct visualization. Having completed the takedown of the previous fundoplication and identification of the relevant structures of the hiatus and esophagus, I then proceeded to repair the hiatal hernia. [id number] mattress sutures of of 0 Ethibond were placed to close the hiatus. These were placed posterior to the esophagus and did not create a tight hiatus around the esophagus. I then created the partial fundoplication and pexy did the fundus to the esophageal hiatus. Two sutures anchoring the stomach, crura, and esophagus were placed on each side of the esophagus. These were 0 Ethibond sutures and were interrupted sutures. Two additional 0 Ethibond sutures were placed, 1 on each side of the esophagus that sutured the hiatus to the fundoplication. This created a partial wrap that was packed seed. It was essentially a 270? wrap. All looked good, there was no evidence of bleeding. Loose suture material and all needles had been removed as we were suturing. The robotic instruments were removed and the trocars were on docked. The trocars were then removed and the patient was placed supine. Skin wounds were closed with subcuticular 4-0 Monocryl skin suture. The incisions were dressed with Exofin surgical adhesive. Patient was then awakened and taken to recovery in good condition. Sponge and needle counts were correct x2. Estimated Blood Loss -150 Drains Yes (Nasogastric tube, Zuniga catheter) Packing No Pathology None sent Complications None Condition Stable Disposition PACU [facility] Billing Surgery - Charge Forward: Surgery Billing (Robotic laparoscopic repair recurrent paraesophageal hiatal hernia with partial fundoplication-add 22 modifier for increased difficulty)
[2025-01-11] MEDS: fentaNYL CITRATE INJ (*CRX) 100 MCG/2 ML VIAL 25 MCG IV PUSH ×3 (19:00→21:47)
--- NOTE | 2025-01-11 19:25 | ECG_ITS ---
Test Date: 2025-01-11 19:44:05 Measurements Intervals [place] Rate: 88 P: 125 MT: 182 QRS: -52 QRSD: 103 T: 58 QT: 388 QTc: 470 Interpretive Statements SINUS RHYTHM LEFT ANTERIOR FASCICULAR BLOCK [QRS AXIS <= -45, QR IN I, RS IN II] POSSIBLE ANTERIOR MYOCARDIAL INFARCTION , PROBABLY OLD [30 ms Q WAVE IN V3/V4, OR R < 0.2 mV IN V4] Compared to ECG 01/06/2025 14:36:35 NO SIGNIFICANT CHANGES Electronically Signed On 01-12-2025 13:13:52 CLOTH PRESSER by Grace Wharton M.D.
[2025-01-11] MEDS: ONDANSETRON INJ 4 MG/2 ML VIAL IV PUSH (21:26)
[2025-01-11] MEDS: LACTATED RINGERS 1,000 ML 100 ML IV CONT (21:46)
[2025-01-11] MEDS: METOPROLOL TARTRATE INJ 5 MG/5 ML VIAL IV PUSH (21:47)
[2025-01-11] MEDS: PANTOPRAZOLE SODIUM IV 40 MG VIAL IV PUSH (21:47)
[2025-01-12] VITALS (22 sets, daily range): BP systolic 111–136; BP diastolic 52–83; PULSE 86–98; RESP 12–25; TEMP 36.1–37.3; O2SAT 91–100; BMI 29.6
--- NOTE | ~2025-01-12 | XR_ITS ---
CHEST RADIOGRAPH CLINICAL HISTORY: diminished RLL breath sounds, PICC placed . COMPARISON: Reference is made to a CT examination of the abdomen dated 01/12/2025 TECHNIQUE: Single portable view of the chest. FINDINGS Blunting of the bilateral costophrenic sulci suggesting bilateral pleural effusions, unchanged from C T examination performed 24 hours earlier. Nasogastric tube extends below the left hemidiaphragm, presumably within the stomach. Right upper extremity PICC line identified with its tip projecting over the cavoatrial junction, in g ood position. The remainder of the cardiomediastinal silhouette is otherwise unremarkable. Biapical scarring, unchanged. Subcutaneous air projecting over the right supraclavicular region, consistent with patient's recent o perative intervention (robotic insufflation). IMPRESSION: Small bilateral pleural effusions, with adjacent compressive atelectasis. Right upper extremity PICC line in good position and ready for immediate use. Reviewed, dictated and finalized at location A. RONMENTAL ENGINEERING MANAGER
--- NOTE | ~2025-01-12 | XR_ITS ---
EXAMINATION: XR UGI water soluble wo kub DATE: 01/17/2025 10:42 INDICATION: Evaluate for a perioperative leak TECHNIQUE: Pre-existing nasogastric tube was infiltrated with 60 cc of Gastrografin. Fluoroscopy expo sure time was minutes. The total number of images was . The dose-area product was Gy-cm^2. COMPARISON: 01/12/2025 FINDINGS: Drainage catheter identified within the upper abdomen. The distal stomach opacified rapidly and emptied appropriately. No evidence of extravasation was appreciated. The drainage catheter bulb was also imaged, and was without significant contrast opacification. IMPRESSION: No evidence of extravasation, as detailed above. Reviewed, dictated and finalized at location A.
--- NOTE | ~2025-01-12 | XR_ITS ---
Exam: Abdomen 1V HISTORY: NG PLACEMENT COMPARISON: 01/06/2020 TECHNIQUE: Semierect images of the lower chest and upper abdomen FINDINGS: Nasogastric tube extends caudally into the left upper quadrant, presumably within the stomach. IMPRESSION: Nasogastric tube in good position and ready for immediate use. Extensive subcutaneous air, presumably perioperative. Mediastinal air is also noted. Reviewed, dictated and finalized at location A. ALS ANALYST
--- NOTE | ~2025-01-12 | XR_ITS ---
EXAMINATION: XR UGI water soluble wo kub DATE: 01/12/2025 09:25 INDICATION: Gastric fundoplication. Postop. TECHNIQUE: Water-soluble contrast was injected into the nasogastric tube. Fluoroscopy of the stomach and proximal small bowel was performed. Fluoroscopy exposure time was 0.5 minutes. The total number o f images was 21. Total dose-area product was 3.945 Gy-cm^2. COMPARISON: CT 09/09/2024 FINDINGS: There are nasogastric tube tip is in the stomach. There are changes of fundoplication of th e stomach. There is leakage of contrast from the proximal stomach toward the left. IMPRESSION: 1. Extraluminal leakage of contrast from the proximal stomach. Reviewed, dictated and finalized at location A. NEERING INSPECTION ASSISTANT
--- NOTE | ~2025-01-12 | CT_ITS ---
EXAMINATION: CT abdomen wo con DATE: 01/12/2025 12:08 INDICATION: Stomach perforation. TECHNIQUE: Computed tomography (CT) of the abdomen was performed without intravenous contrast. Automa vinod exposure control and iterative reconstruction technique were employed. The dose-length product wa s 448.29 mGy-cm. COMPARISON: CT abdomen 09/09/2024, upper gastrointestinal series 01/12/2025 FINDINGS: The visualized portions of the lung bases demonstrate mild atelectasis. There are small ple ural effusions. There is a small right pneumothorax. Pneumomediastinum is noted. There is gas in left chest wall and anterior abdominal wall. There is a 7 mm nodule at minor fissure, likely benign. Ther e is a 3 mm nodule in right upper lobe, likely benign. The heart size is normal. No pericardial effus ion. There is a 15 mm cyst in the liver. There are gallstones in the gallbladder. Gallbladder distent ion may be secondary to fasting. The spleen, pancreas, and adrenal glands are normal. There are perip elvic cysts in the kidneys measuring up to 2.4 cm on the right. There is a small volume of free intra peritoneal gas. The nasogastric tube tip is in the distal stomach. There are changes of fundoplicatio n of the stomach. There is a small volume of fluid and gas adjacent to the gastroesophageal junction. There is a small volume of ascites and oral contrast in left paracolic gutter. There is severe lumba r spondylosis. IMPRESSION: 1. Oral contrast in left paracolic gutter secondary to leakage from the proximal stomach. Small volum e of ascites. 2. Small right hydropneumothorax. Small left pleural effusion. Reviewed, dictated and finalized at location A. STRAIGHTENER IMPRESSION: 1. Oral contrast in left paracolic gutter secondary to leakage from the proxima l stomach. Small volume of ascites. 2. Small right hydropneumothorax. Small left pleural effusion.
[2025-01-12] MEDS: fentaNYL CITRATE INJ (*CRX) 100 MCG/2 ML VIAL 25 MCG IV PUSH ×5 (00:08→18:39)
[2025-01-12] MEDS: ONDANSETRON INJ 4 MG/2 ML VIAL IV PUSH ×5 (00:28→22:24)
[2025-01-12] MEDS: IBUPROFEN IV 800 MG/200 ML 800 MG/200 ML BAG 400 MG IVPB ×2 (01:26→07:34)
[2025-01-12] MEDS: METOPROLOL TARTRATE INJ 5 MG/5 ML VIAL IV PUSH ×2 (05:45→12:26)
[2025-01-12 06:30] LABS: Hematocrit 38.9 % (37.0-47.0); Hemoglobin 12.3 g/dL (12.0-15.0); Mean Corpuscular HGB Conc 31.6 g/dl (32-36); Mean Corpuscular Hemoglobin 31.5 pg (26-34); Mean Corpuscular Volume 99.7 fl (80-100); Mean Platelet Volume 11.1 fl (7.4-10.4); Platelet Count Result 193 k/mm3 (150-375); Red Cell Distribution Width 13.7 % (11.5-14.5); White Blood Count 15.5 K/mm3 (4.5-10.0)
[2025-01-12 06:51] LABS: Anion Gap 9 mmol/L (4-12); Blood Urea Nitrogen 18 mg/dL (7-17); Calcium 8.6 mg/dL (8.4-10.2); Carbon Dioxide 22 mmol/L (22-30); Chloride 106 mmol/L (98-107); Estimated CRCL calculation 60 ml/min; Estimated Glomerular Filt Rate > 60; Glucose 117 mg/dL (65-110); Potassium 4.4 mmol/L (3.4-5.0); Sodium 137 mmol/L (137-145)
[2025-01-12] MEDS: LACTATED RINGERS 1,000 ML 100 ML IV CONT ×2 (07:48→20:24)
--- NOTE | 2025-01-12 09:31 | PM.PNGS ---
Progress Note: A&P Assessment and Plan (1) Hiatal hernia: Code(s): K44.9 - Diaphragmatic hernia without obstruction or gangrene Status: Acute Assessment and Plan: Postop day 1 following recurrent hiatal hernia repair with partial fundoplication. Postoperative pain better controlled this morning with the addition of IV Ibuprofen. Nausea improved with her PRN Zofran. Hemoglobin stable at 12.3 this morning. Water-soluble upper GI series ordered this morning, results pending. Continue NG tube decompression, bowel rest, and IV fluids for now. (2) Dysphagia: Qualifiers: Dysphagia type: unspecified Qualified Code(s): R13.10 - Dysphagia, unspecified Code(s): R13.10 - Dysphagia, unspecified Status: Acute (3) History of supraventricular tachycardia: Code(s): Z86.79 - Personal history of other diseases of the circulatory system Status: Chronic Assessment and Plan: Will monitor continuous telemetry for now. No arrhythmias or significant events noted on review of telemetry overnight. Plan I have discussed the patient's case and plan of care with Dr. Hernandez. Subjective Subjective Date/Time Seen: 01/12/25 09:31 Post Op day: 1 (Repair recurrent hiatal hernia with partial fundoplication) Interval history: Overnight, the patient reports having a significant amount of upper abdominal pain that was not being relieved with the PRN Fentanyl. Around 2:00 am she reports receiving IV Ibuprofen, which actually provided some relief in her pain. She points across her upper abdomen when describing the pain. Nursing reports her vomiting with the NG tube and dark bloody output from her NG this morning. The patient and her daughter state she was very nauseous and spitting up mucous through the night, but she never noticed having anything bloody coming up. She is not feeling nauseous at this time. She has had relief with the IV Zofran. Also in her canister, there is dark maroon/brown drainage with around 125 cc out since surgery. She is on telemetry, which was reviewed with no abnormal rhythms noted since surgery, other than random episodes of singular PVCs noted. The patient reports feeling much more comfortable since around 2 am and this morning received Fentanyl with the IV Ibuprofen, which seems to have kept her pain controlled. She just came back from her upper GI series. Exam Const: General: comfortable and no acute distress Orientation/consciousness: patient oriented x3 GI: Inspection: non-distended and incision (port site incisions dry and glue intact) GI Palp: Yes Soft to palpation, Yes Tenderness to palpation present (GI) (expected tenderness across the upper abdomen/near incisions), No Guarding due to palpation present (GI) and No Rebound tenderness present Auscultation: absent bowel sounds Extrem: General: no pedal edema and no calf tenderness Objective Data Vital Signs Vital Signs: Vital Signs - 24 hr 01/11/25 09:45 01/11/25 18:23 01/11/25 18:35 Temperature 97.7 F 97.6 F Pulse Rate 78 102 H 94 Respiratory Rate 16 20 18 Blood Pressure 151/77 H 121/78 123/70 Pulse Oximetry 100 92 96 Oxygen Delivery Room Air Simple Face Mask Simple Face Mask Oxygen Flow Rate 8 8 01/11/25 18:50 01/11/25 19:05 01/11/25 19:20 Temperature Pulse Rate 92 95 102 H Respiratory Rate 18 20 16 Blood Pressure 125/69 109/63 96/55 L Pulse Oximetry 97 93 94 Oxygen Delivery Simple Face Mask Nasal Cannula Nasal Cannula Oxygen Flow Rate 8 3 3 01/11/25 19:35 01/11/25 19:50 01/11/25 20:10 Temperature Pulse Rate 88 88 89 Respiratory Rate 16 14 14 Blood Pressure 90/58 L 98/65 L 102/63 Pulse Oximetry 94 95 96 Oxygen Delivery Nasal Cannula Nasal Cannula Nasal Cannula Oxygen Flow Rate 3 3 3 01/11/25 20:25 01/11/25 21:13 01/11/25 21:15 Temperature 97.3 F L Pulse Rate 90 94 93 Respiratory Rate 17 15 16 Blood Pressure 102/79 140/93 H Pulse Oximetry 96 99 97 Oxygen Delivery Nasal Cannula Nasal Cannula Oxygen Flow Rate 2 2 01/11/25 21:32 01/11/25 21:47 01/11/25 21:47 Temperature 97.3 F L 97.7 F Pulse Rate 94 100 93 Respiratory Rate 15 16 Blood Pressure 140/93 H 141/89 H Pulse Oximetry 99 97 Oxygen Delivery Oxygen Flow Rate 01/11/25 22:17 01/11/25 23:23 01/12/25 00:02 Temperature 97.7 F 98.4 F Pulse Rate 92 96 98 Respiratory Rate 16 18 Blood Pressure 137/88 128/79 Pulse Oximetry 98 99 Oxygen Delivery Oxygen Flow Rate 01/12/25 03:00 01/12/25 04:02 01/12/25 05:45 Temperature 98 F Pulse Rate 97 95 98 Respiratory Rate 16 Blood Pressure 111/59 L Pulse Oximetry 94 Oxygen Delivery Oxygen Flow Rate Intake/Output Intake/Output: Intake & Output 01/09/25 01/10/25 01/11/25 01/12/25 23:59 23:59 23:59 23:59 Intake Total 250 1200 Output Total 350 Balance -100 1200 Meds/Results Medications: Active Medications Generic Name Dose Route Start Last Admin Trade Name Freq PRN Reason Stop Dose Admin Fentanyl Citrate 25 mcg 01/11/25 11:21 01/11/25 19:07 Fentanyl Citrate Inj (*Crx) 100 Mcg/2 Ml Vial IV PUSH 25 mcg Q2M PRN Administration Pain Fentanyl Citrate 12.5 mcg 01/11/25 21:32 Fentanyl Citrate Inj (*Crx) 100 Mcg/2 Ml Vial IV PUSH Q2H PRN Breakthrough Pain Rated 4-6 or NPO Fentanyl Citrate 25 mcg 01/11/25 21:32 01/12/25 07:45 Fentanyl Citrate Inj (*Crx) 100 Mcg/2 Ml Vial IV PUSH 25 mcg Q2H PRN Administration Breakthrough Pain Rated 7-10 or NPO Lactated Ringer's 1,000 mls @ 100 mls/hr 01/11/25 21:32 01/12/25 07:48 Lr - Lactated Ringers Iv IV CONT 100 mls/hr .Q10H AKSHAT Administration Ibuprofen 800 mg in 200 mls @ 400 mls/hr 01/11/25 21:32 01/12/25 07:34 Caldolor 800 Mg/200 Ml IVPB 400 mls/hr Q6H PRN Administration Breakthrough Pain Rated 1-3 or NPO Metoprolol Tartrate 5 mg 01/11/25 22:00 01/12/25 05:45 Metoprolol Tartrate Inj 5 Mg/5 Ml Vial IV PUSH 5 mg Q6HR AKSHAT Administration Naloxone HCl 0.1 mg 01/11/25 21:32 Naloxone Hcl 0.4 Mg/Ml Vial IV PUSH Q2M PRN Opiate Reversal Ondansetron HCl 4 mg 01/11/25 11:21 01/11/25 21:26 Ondansetron Inj 4 Mg/2 Ml Vial IV PUSH 4 mg ONCE PRN Administration Nausea Ondansetron HCl 4 mg 01/11/25 21:32 01/12/25 05:46 Ondansetron Inj 4 Mg/2 Ml Vial IV PUSH 4 mg Q4H PRN Administration Nausea And Vomiting Pantoprazole Sodium 40 mg 01/11/25 21:32 01/11/25 21:47 Pantoprazole Sodium Iv 40 Mg Vial IV PUSH 40 mg Q12HR AKSHAT Administration Radiology Results: ITS Impressions Abdomen X-Ray 01/11/25 18:39 IMPRESSION: Nasogastric tube in good position and ready for immediate use. Extensive subcutaneous air, presumably perioperative. Mediastinal air is also noted. Labs Labs: Laboratory Results - last 24 hr 01/12/25 05:37 WBC 15.5 H RBC 3.90 L Hgb 12.3 Hct 38.9 MCV 99.7 MCH 31.5 MCHC 31.6 L RDW 13.7 Plt Count 193 MPV 11.1 H Sodium 137 Potassium 4.4 Chloride 106 Carbon Dioxide 22 Anion Gap 9 BUN 18 H Creatinine 0.60 L Estim Creat Clear Calc 60 Estimated GFR > 60 Glucose 117 H Calcium 8.6
[2025-01-12] MEDS: PANTOPRAZOLE SODIUM IV 40 MG VIAL IV PUSH ×2 (10:27→21:21)
[2025-01-12] MEDS: fentaNYL CITRATE INJ (*CRX) 100 MCG/2 ML VIAL 12.5 MCG IV PUSH (10:39)
[2025-01-12] MEDS: ENOXAPARIN 40 MG/0.4 ML SYRINGE SUB-Q (12:20)
--- NOTE | 2025-01-12 13:03 | PC.NURSE ---
Pt was found on low intermitten suction, per provider, patient needs to be on continuous suction; patient suction changed to medium continuous suction per provider order.
--- NOTE | 2025-01-12 13:14 | PM.PNGS ---
Progress Note: A&P Assessment and Plan (1) Gastric leak: Code(s): K91.89 - Other postprocedural complications and disorders of digestive system Status: Acute Assessment and Plan: Gastric leak following redo fundoplication. Patient had retching all night which certainly could have led to this. We will proceed with robotic laparoscopic exploration and repair. Patient will also need to have a drain placed. I discussed this with the patient and her daughter. She agrees to go ahead. Subjective Subjective Date/Time Seen: 01/12/25 13:14 Post Op day: 1 Patient reports: still having pain, no bowel movement, vomiting and afebrile Interval history: Patient had retching with small amount of emesis most of the night. She has NG tube in place but it did not have much output. That has stopped and is minimal. She is in less pain this afternoon and then she was last night. Exam Const: General: comfortable, alert and awake Orientation/consciousness: No confusion GI: Inspection: non-distended and incision (Dry, clean) GI Palp: Yes abdominal tenderness (Epigastric) and Yes Soft to palpation Auscultation: Hypoactive bowel sounds present Objective Data Vital Signs Vital Signs: Vital Signs - 24 hr 01/11/25 18:23 01/11/25 18:35 01/11/25 18:50 Temperature 36.4 C Pulse Rate 102 H 94 92 Respiratory Rate 20 18 18 Blood Pressure 121/78 123/70 125/69 Pulse Oximetry 92 96 97 Oxygen Delivery Simple Face Mask Simple Face Mask Simple Face Mask Oxygen Flow Rate 8 8 8 01/11/25 19:05 01/11/25 19:20 01/11/25 19:35 Temperature Pulse Rate 95 102 H 88 Respiratory Rate 20 16 16 Blood Pressure 109/63 96/55 L 90/58 L Pulse Oximetry 93 94 94 Oxygen Delivery Nasal Cannula Nasal Cannula Nasal Cannula Oxygen Flow Rate 3 3 3 01/11/25 19:50 01/11/25 20:10 01/11/25 20:25 Temperature Pulse Rate 88 89 90 Respiratory Rate 14 14 17 Blood Pressure 98/65 L 102/63 102/79 Pulse Oximetry 95 96 96 Oxygen Delivery Nasal Cannula Nasal Cannula Nasal Cannula Oxygen Flow Rate 3 3 2 01/11/25 21:13 01/11/25 21:15 01/11/25 21:32 Temperature 36.3 C L 36.3 C L Pulse Rate 94 93 94 Respiratory Rate 15 16 15 Blood Pressure 140/93 H 140/93 H Pulse Oximetry 99 97 99 Oxygen Delivery Nasal Cannula Oxygen Flow Rate 2 01/11/25 21:47 01/11/25 21:47 01/11/25 22:17 Temperature 36.5 C 36.5 C Pulse Rate 100 93 92 Respiratory Rate 16 16 Blood Pressure 141/89 H 137/88 Pulse Oximetry 97 98 Oxygen Delivery Oxygen Flow Rate 01/11/25 23:23 01/12/25 00:02 01/12/25 03:00 Temperature 36.9 C 36.6 C Pulse Rate 96 98 97 Respiratory Rate 18 16 Blood Pressure 128/79 111/59 L Pulse Oximetry 99 94 Oxygen Delivery Oxygen Flow Rate 01/12/25 04:02 01/12/25 05:45 01/12/25 08:00 Temperature Pulse Rate 95 98 Respiratory Rate Blood Pressure Pulse Oximetry 95 Oxygen Delivery Nasal Cannula Oxygen Flow Rate 2 01/12/25 10:00 01/12/25 12:26 Temperature 36.6 C Pulse Rate 91 90 Respiratory Rate 20 Blood Pressure 127/68 Pulse Oximetry 94 Oxygen Delivery Oxygen Flow Rate Intake/Output Intake/Output: Intake & Output 01/09/25 01/10/25 01/11/25 01/12/25 23:59 23:59 23:59 23:59 Intake Total 250 1200 Output Total 350 Balance -100 1200 Meds/Results Medications: Active Medications Generic Name Dose Route Start Last Admin Trade Name Freq PRN Reason Stop Dose Admin Enoxaparin Sodium 40 mg 01/12/25 10:24 01/12/25 12:20 Enoxaparin 40 Mg/0.4 Ml Syringe SUB-Q 40 mg DAILY AKSHAT Administration Fentanyl Citrate 25 mcg 01/11/25 11:21 01/11/25 19:07 Fentanyl Citrate Inj (*Crx) 100 Mcg/2 Ml Vial IV PUSH 25 mcg Q2M PRN Administration Pain Fentanyl Citrate 12.5 mcg 01/11/25 21:32 01/12/25 10:39 Fentanyl Citrate Inj (*Crx) 100 Mcg/2 Ml Vial IV PUSH 12.5 mcg Q2H PRN Administration Breakthrough Pain Rated 4-6 or NPO Fentanyl Citrate 25 mcg 01/11/25 21:32 01/12/25 07:45 Fentanyl Citrate Inj (*Crx) 100 Mcg/2 Ml Vial IV PUSH 25 mcg Q2H PRN Administration Breakthrough Pain Rated 7-10 or NPO Lactated Ringer's 1,000 mls @ 100 mls/hr 01/11/25 21:32 01/12/25 07:48 Lr - Lactated Ringers Iv IV CONT 100 mls/hr .Q10H AKSHAT Administration Ibuprofen 800 mg in 200 mls @ 400 mls/hr 01/11/25 21:32 01/12/25 07:34 Caldolor 800 Mg/200 Ml IVPB 400 mls/hr Q6H PRN Administration Breakthrough Pain Rated 1-3 or NPO Metoprolol Tartrate 5 mg 01/11/25 22:00 01/12/25 12:26 Metoprolol Tartrate Inj 5 Mg/5 Ml Vial IV PUSH 5 mg Q6HR AKSHAT Administration Naloxone HCl 0.1 mg 01/11/25 21:32 Naloxone Hcl 0.4 Mg/Ml Vial IV PUSH Q2M PRN Opiate Reversal Ondansetron HCl 4 mg 01/11/25 11:21 01/11/25 21:26 Ondansetron Inj 4 Mg/2 Ml Vial IV PUSH 4 mg ONCE PRN Administration Nausea Ondansetron HCl 4 mg 01/11/25 21:32 01/12/25 10:27 Ondansetron Inj 4 Mg/2 Ml Vial IV PUSH 4 mg Q4H PRN Administration Nausea And Vomiting Pantoprazole Sodium 40 mg 01/11/25 21:32 01/12/25 10:27 Pantoprazole Sodium Iv 40 Mg Vial IV PUSH 40 mg Q12HR AKSHAT Administration Radiology Results: ITS Impressions Abdomen X-Ray 01/11/25 18:39 IMPRESSION: Nasogastric tube in good position and ready for immediate use. Extensive subcutaneous air, presumably perioperative. Mediastinal air is also noted. Upper GI Series 01/12/25 10:11 IMPRESSION: 1. Extraluminal leakage of contrast from the proximal stomach. Abdomen CT 01/12/25 12:08 IMPRESSION: 1. Oral contrast in left paracolic gutter secondary to leakage from the proximal stomach. Small volume of ascites. 2. Small right hydropneumothorax. Small left pleural effusion. Labs Labs: Laboratory Results - last 24 hr 01/12/25 05:37 WBC 15.5 H RBC 3.90 L Hgb 12.3 Hct 38.9 MCV 99.7 MCH 31.5 MCHC 31.6 L RDW 13.7 Plt Count 193 MPV 11.1 H Sodium 137 Potassium 4.4 Chloride 106 Carbon Dioxide 22 Anion Gap 9 BUN 18 H Creatinine 0.60 L Estim Creat Clear Calc 60 Estimated GFR > 60 Glucose 117 H Calcium 8.6 Imaging Attestation: I personally reviewed and interpreted this imaging study as follows: (Upper GI, CT scan) My impression: Gastric leak upper stomach probably fundoplication. CT shows contrast in left colic gutter likely from gastric leak. Radiologist's impression: Same with small right hydropneumothorax
--- NOTE | 2025-01-12 14:10 | PC.NURSE ---
Pt off the floor; left for preop.
--- NOTE | 2025-01-12 14:45 | P.PNAN_ITS ---
Anes - Eval Final PreProcedure Day of Procedure 01/12/25 14:45 Patient weight: obese Heart: regular rate and rhythm Lungs: clear to auscultation Airway: Mallampati scale class II Neurological: alert and oriented Last oral intake: >/= 8 hours ASA classification: III Emergent: yes Anesthetic plan: proceed Anesthesia type and monitoring: general ETT and standard monitoring Results Review: All pre-operative results and documents have been reviewed as part of the pre- operative evaluation. Informed Consent: The patient's anesthetic plan and its attendant risks and benefits were discussed with the patient/family/POA. Questions were solicited and answers provided to the satisfaction of the patient/family/POA.
[2025-01-12] MEDS: LACTATED RINGERS 1,000 ML 30 ML IV CONT ×2 (15:00→18:21)
--- NOTE | 2025-01-12 15:01 | WPDHPUPDATE1 ---
History and Physical Update Update Date/Time: 01/12/25 15:01 History and Physical has been reviewed, including an updated exam of the patient. There are NO changes in the patient's condition. Risks, benefits, and alternatives have been discussed and questions answered. Patient agrees to proceed with procedure.
[2025-01-12] MEDS: ceFAZolin SODIUM 1 GM VIAL 2 GM IV PUSH (15:29)
--- NOTE | 2025-01-12 18:14 | P.OP_ITS ---
Procedure Note - Detailed Date of Procedure 01/12/25 Pre-op Diagnosis Gastric leak status post fundoplication Post-op Diagnosis Same Procedure Performed Robotic laparoscopic repair gastric perforation, omentoplasty Surgeon Ibrahima Hernandez MD Wrapping Clerk Marty Pool SHEARER SCREEN MEASURER AND TRIMMER Anesthesia General Indications Patient yesterday had a redo fundoplication for recurrent hiatal hernia and dysphagia. During the surgery, couple of gastrotomy is were made and repaired. As a routine, she had a water-soluble upper GI this morning which showed a gastric leak. CT scan corroborated a significant contrast leak. She has returned to surgery for repair and drainage. Findings The left side of the fundoplication showed a leak of about 2 cm in length. There was no staple line in the area. The cause of the leak is uncertain although tearing of plication suturing might have been the source. After repair, ICG was administered per the NG tube and firefly was used to assess for any further leakage. After the omentoplasty this was again checked. In both instances there was no sign of further leakage. Description of Procedure Patient was taken to surgery and induced into general anesthesia. The Exofin was removed from the skin and the abdomen was prepped and draped. Trocars were replaced in essentially the same manner as they had been placed yesterday. The robotic camera was docked and targeted. The other robotic ports were placed including the short gastric retractor, cadiere, dissecting scissors. The clinical project assistant 10 11 port above the umbilicus was likewise replaced. The surgeon then went to the robotic console. Gently the lateral segment of the left lobe of the liver was elevated off the fundoplication. The short grasping retractor was then used to keep the lateral segment elevated. We suctioned away some residual fluid and looked at the fundoplication and the lateral stomach focusing mostly on the left side which was where the leak was seen on imaging. We gave some dilute methylene blue through the NG tube. An area of methylene blue seepage was noted and following this, the gastric opening on the left side of the fundoplication was noted. Dissection around this area was carried out so that the edges could be sutured and the perforation closed. Interrupted 3-0 Vicryl suture were placed in Lembert fashion dunking the mucosa. Once this was repaired, the ICG was diluted to 100 cc and administered per the NG tube. We used firefly and checked for any leakage. None was seen. I then used the vessel sealer and divided some of the omentum so that it would reach up to the area of the repair. I then used several 3-0 Vicryl sutures to secure the omentum over the repair using primarily mattress sutures. When this was completed, I checked firefly again and saw no sign of any extravasation of ICG. A 19 Gilberto drain was then passed into the abdomen through the left lower quadrant and positioned in the area of the gastric perforation. It was sutured securely to the skin with 2-0 silk. We reviewed the operative area and saw no sign of bleeding or other problems. The robotic instruments were then removed. The robot arms were undocked. The trocars were removed and the skin wounds were closed with subcuticular 4-0 Monocryl skin suture. The wounds were again dressed with Exofin surgical adhesive. Patient was then awakened and taken to recovery in good condition. Sponge and needle counts were correct x2. Estimated Blood Loss -20 Drains Yes (Gilberto drain 19 Azeri left upper quadrant, NG tube, Zuniga catheter) Packing No Pathology None sent Complications None Condition Stable Disposition PACU [facility] Billing Surgery - Charge Forward: Surgery Billing (Robotic repair gastric perforation, omentoplasty)
[2025-01-13] VITALS (17 sets, daily range): BP systolic 116–133; BP diastolic 61–78; PULSE 72–117; RESP 13–20; TEMP 36.4–36.8; O2SAT 90–94; BMI 29.6
[2025-01-13] MEDS: METOPROLOL TARTRATE INJ 5 MG/5 ML VIAL IV PUSH ×4 (00:15→18:13)
[2025-01-13] MEDS: IBUPROFEN IV 800 MG/200 ML 800 MG/200 ML BAG 400 MG IVPB ×2 (00:16→20:49)
[2025-01-13] MEDS: LACTATED RINGERS 1,000 ML 100 ML IV CONT (06:09)
[2025-01-13 07:53] LABS: Hematocrit 34.5 % (37.0-47.0); Hemoglobin 10.9 g/dL (12.0-15.0); Mean Corpuscular HGB Conc 31.6 g/dl (32-36); Mean Corpuscular Hemoglobin 31.7 pg (26-34); Mean Corpuscular Volume 100.3 fl (80-100); Mean Platelet Volume 11.5 fl (7.4-10.4); Platelet Count Result 172 k/mm3 (150-375); Red Blood Count 3.44 M/mm3 (4.2-5.4); Red Cell Distribution Width 14.3 % (11.5-14.5); White Blood Count 19.3 K/mm3 (4.5-10.0)
[2025-01-13 08:02] LABS: Anion Gap 5 mmol/L (4-12); Blood Urea Nitrogen 21 mg/dL (7-17); Calcium 8.5 mg/dL (8.4-10.2); Carbon Dioxide 29 mmol/L (22-30); Chloride 106 mmol/L (98-107); Estimated CRCL calculation 43 ml/min; Estimated Glomerular Filt Rate > 60; Glucose 128 mg/dL (65-110); Potassium 4.5 mmol/L (3.4-5.0); Sodium 140 mmol/L (137-145)
[2025-01-13] MEDS: ENOXAPARIN 40 MG/0.4 ML SYRINGE SUB-Q (08:49)
[2025-01-13] MEDS: PANTOPRAZOLE SODIUM IV 40 MG VIAL IV PUSH ×2 (08:49→20:49)
[2025-01-13] MEDS: PIPERACILLN/TAZ 3.375GM/NS50ML 3.375 GM/50 ML BAG IVPB ×3 (08:57→20:50)
[2025-01-13 08:58] LABS: Basophils Percent Auto 0.2 % (0.2-1.2); Immature Granulocyte Absolute 0.12 K/mm3 (0.00-0.031); Immature Granulocyte Percent A 0.6 % (0-0.5); Lymphocytes Absolute Auto 0.86 K/mm3 (0.9-3.2); Lymphocytes Percent Auto 4.4 % (18.3-44.2); Neutrophils Absolute Auto 17.5 K/mm3 (1.3-6.7); Neutrophils Percent Auto 89.8 % (45.5-73.1)
[2025-01-13 09:04] LABS: Alanine Aminotransferase 35 U/L (6-35); Albumin Level 2.7 g/dL (3.5-5.1); Alkaline Phosphatase 58 U/L (38-126); Aspartate Amino Transferase 75 U/L (14-36); Bilirubin,Total 0.5 mg/dL (0.2-1.3); Magnesium 1.8 mg/dL (1.6-2.3)
[2025-01-13 09:11] LABS: Transferrin 134 mg/dL (206-381)
[2025-01-13] MEDS: LIDOCAINE 1% PF INJ 5 ML VIAL INFILTRATE (09:15)
[2025-01-13 09:18] LABS: Partial Thromboplastin Time 29.8 Seconds (22.3-36.8)
[2025-01-13 11:54] LABS: Glucose Point of Care 109 mg/dl (65-105)
--- NOTE | 2025-01-13 12:33 | PM.PNGS ---
Progress Note: A&P Assessment and Plan (1) Gastric leak: Code(s): K91.89 - Other postprocedural complications and disorders of digestive system Status: Acute Assessment and Plan: Repaired yesterday with omentoplasty and placement of drain, no signs of sepsis today. Continue NPO, NG tube, Zosyn antibiotics. (2) Hiatal hernia: Code(s): K44.9 - Diaphragmatic hernia without obstruction or gangrene Status: Acute Assessment and Plan: Redo repair with partial fundoplication and fundopexy 2 days ago (3) History of repair of hiatal hernia: Code(s): Z98.890 - Other specified postprocedural states; Z87.19 - Personal history of other diseases of the digestive system Status: Chronic Assessment and Plan: Paraesophageal hiatal hernia repair 9 months ago, had recurrence and stricture with dysphagia prior to recent surgery 01/11/2025 (4) Protein-calorie malnutrition, moderate: Code(s): E44.0 - Moderate protein-calorie malnutrition Status: Acute Assessment and Plan: Will have PICC line placed and start TPN has patient has been eating poorly and anticipate NPO for a few more days. Subjective Subjective Date/Time Seen: 01/13/25 12:33 Post Op day: 1 Patient reports: no new complaints (Slept nearly all night), pain is less (Had a much better night, pain decreased, no gagging or retching), no flatus, no bowel movement and afebrile Exam Const: General: comfortable, no acute distress, awake, tired appearing and edematous Orientation/consciousness: patient oriented x3 HENMT: Face and sinus: edema Resp: Effort & Inspection: normal respiratory effort and able to speak in complete sentences Auscultation: diminished lung sounds on the left Cardio: Rate: regular rate Rhythm: regular rhythm GI: Inspection: non-distended and incision (Dry and healing, POWER serosanguineous) GI Palp: Yes Soft to palpation, Yes Tenderness to palpation present (GI) (Upper half of abdomen), No Guarding due to palpation present (GI) and No Rebound tenderness present Auscultation: Hypoactive bowel sounds present Urinary Catheter: Urinary Catheter: patent and draining and urine clear (Urine green status post methylene blue and ICG) Neuro: General: patient oriented x3 and no focal motor deficits Extrem: General: no calf tenderness and edema Psych: Speech and movement: Clear speech present Affect: normal affect Attitude: cooperative Thought process: Normal thought process present Insight: Good insight present (Psych) Judgement: Good judgement present (Psych) Objective Data Vital Signs Vital Signs: Vital Signs - 24 hr 01/12/25 14:00 01/12/25 14:39 01/12/25 18:21 Temperature 36.8 C 36.8 C 37.3 C Pulse Rate 88 91 94 Respiratory Rate 18 25 H 18 Blood Pressure 114/68 118/76 134/58 L Pulse Oximetry 95 94 98 Oxygen Delivery Nasal Cannula Simple Face Mask Oxygen Flow Rate 2 6 01/12/25 18:35 01/12/25 18:50 01/12/25 19:00 Temperature 36.8 C Pulse Rate 96 91 90 Respiratory Rate 23 H 12 14 Blood Pressure 136/83 112/60 116/57 L Pulse Oximetry 97 98 94 Oxygen Delivery Simple Face Mask Simple Face Mask Nasal Cannula Oxygen Flow Rate 8 8 2 01/12/25 19:05 01/12/25 19:17 01/12/25 19:20 Temperature 36.1 C L Pulse Rate 91 91 89 Respiratory Rate 14 13 14 Blood Pressure 121/59 L 119/52 L 117/60 Pulse Oximetry 97 91 100 Oxygen Delivery Nasal Cannula Nasal Cannula Oxygen Flow Rate 2 2 01/12/25 19:35 01/12/25 20:00 01/12/25 20:00 Temperature 36.2 C L 36.1 C L Pulse Rate 86 91 Respiratory Rate 14 13 Blood Pressure 114/54 L 119/52 L Pulse Oximetry 99 91 93 Oxygen Delivery Nasal Cannula Nasal Cannula Oxygen Flow Rate 1 1 01/12/25 20:00 01/12/25 20:15 01/12/25 20:30 Temperature 36.2 C L 36.4 C L Pulse Rate 90 90 89 Respiratory Rate 20 16 Blood Pressure 122/63 120/72 Pulse Oximetry 94 94 Oxygen Delivery Oxygen Flow Rate 01/12/25 21:30 01/13/25 00:00 01/13/25 00:15 Temperature 36.6 C Pulse Rate 89 96 98 Respiratory Rate 17 Blood Pressure 118/56 L Pulse Oximetry 93 Oxygen Delivery Oxygen Flow Rate 01/13/25 01:35 01/13/25 04:00 01/13/25 05:02 Temperature 36.5 C Pulse Rate 99 90 98 Respiratory Rate 13 Blood Pressure 133/69 Pulse Oximetry 91 Oxygen Delivery Oxygen Flow Rate 01/13/25 05:35 01/13/25 08:02 01/13/25 08:02 Temperature 36.6 C Pulse Rate 94 92 Respiratory Rate 13 Blood Pressure 124/78 Pulse Oximetry 91 91 Oxygen Delivery Nasal Cannula Oxygen Flow Rate 1 01/13/25 09:35 Temperature 36.5 C Pulse Rate 88 Respiratory Rate 20 Blood Pressure 116/61 Pulse Oximetry 90 Oxygen Delivery Oxygen Flow Rate Intake/Output Intake/Output: Intake & Output 01/10/25 01/11/25 01/12/25 01/13/25 23:59 23:59 23:59 23:59 Intake Total 250 2900 1025 Output Total 350 241 130 Balance -100 2659 895 Meds/Results Medications: Active Medications Generic Name Dose Route Start Last Admin Trade Name Freq PRN Reason Stop Dose Admin Benzocaine 1 lozenge 01/13/25 11:27 Benzocaine/Menthol (*Bkc) 18 Ea Lozenge PO PRN PRN Sore Throat Enoxaparin Sodium 40 mg 01/12/25 10:24 01/13/25 08:49 Enoxaparin 40 Mg/0.4 Ml Syringe SUB-Q 40 mg DAILY AKSHAT Administration Fentanyl Citrate 12.5 mcg 01/11/25 21:32 01/12/25 10:39 Fentanyl Citrate Inj (*Crx) 100 Mcg/2 Ml Vial IV PUSH 12.5 mcg Q2H PRN Administration Breakthrough Pain Rated 4-6 or NPO Fentanyl Citrate 25 mcg 01/11/25 21:32 01/12/25 07:45 Fentanyl Citrate Inj (*Crx) 100 Mcg/2 Ml Vial IV PUSH 25 mcg Q2H PRN Administration Breakthrough Pain Rated 7-10 or NPO Lactated Ringer's 1,000 mls @ 60 mls/hr 01/11/25 21:32 01/13/25 06:09 Lr - Lactated Ringers Iv IV CONT 100 mls/hr .[id number] AKSHAT Administration Ibuprofen 800 mg in 200 mls @ 400 mls/hr 01/11/25 21:32 01/13/25 00:16 Caldolor 800 Mg/200 Ml IVPB 400 mls/hr Q6H PRN Administration Breakthrough Pain Rated 1-3 or NPO Piperacillin/Tazobactam/Dextrose 3.375 gm in 50 mls @ 100 mls/hr 01/13/25 09:00 01/13/25 09:27 Zosyn 3.375 Gm/Ns 50 Ml IVPB Infused Q6H [facility] Infusion Dextrose 1,000 mls @ 50 mls/hr 01/13/25 08:04 Dextrose 10% IV CONT .Q20H PRN if PN is interrupted Multivitamins 1.25 ml/ 1,002.5 mls @ 40 mls/hr 01/13/25 14:00 Multivitamins 1.25 ml/ Amino IV CONT Acids/Electrolytes/Dextrose .Q24H [facility] Protocol Fat Emulsion Intravenous 250 mls @ 20.833 mls/hr 01/13/25 14:00 Lipids 20% IVPB Q24H [facility] Insulin Aspart 3 - 6 units 01/13/25 12:00 01/13/25 12:30 Insulin Aspart (*Bkc) 100 Units/Ml SUB-Q 01/13/25 17:59 Not Given Q6HR [facility] Protocol Insulin Human Regular 0 units 01/13/25 18:00 Insulin Human Regular (*Bkc) 100 Units/Ml SUB-Q Q6HR [facility] Protocol Metoprolol Tartrate 5 mg 01/11/25 22:00 01/13/25 05:02 Metoprolol Tartrate Inj 5 Mg/5 Ml Vial IV PUSH 5 mg Q6HR AKSHAT Administration Naloxone HCl 0.1 mg 01/11/25 21:32 Naloxone Hcl 0.4 Mg/Ml Vial IV PUSH Q2M PRN Opiate Reversal Ondansetron HCl 4 mg 01/11/25 21:32 01/12/25 22:24 Ondansetron Inj 4 Mg/2 Ml Vial IV PUSH 4 mg Q4H PRN Administration Nausea And Vomiting Pantoprazole Sodium 40 mg 01/11/25 21:32 01/13/25 08:49 Pantoprazole Sodium Iv 40 Mg Vial IV PUSH 40 mg Q12HR [facility] Administration Sodium Chloride 10 ml 01/13/25 14:00 Central Line Flush IV PUSH Q8HR [facility] Sodium Chloride 10 ml 01/13/25 10:14 Central Line Flush IV PUSH PRN PRN with TPN bag changes Sodium Chloride 20 ml 01/13/25 10:14 Central Line Flush IV PUSH PRN PRN after blood draws Radiology Results: ITS Impressions Abdomen X-Ray 01/11/25 18:39 IMPRESSION: Nasogastric tube in good position and ready for immediate use. Extensive subcutaneous air, presumably perioperative. Mediastinal air is also noted. Upper GI Series 01/12/25 10:11 IMPRESSION: 1. Extraluminal leakage of contrast from the proximal stomach. Abdomen CT 01/12/25 12:08 IMPRESSION: 1. Oral contrast in left paracolic gutter secondary to leakage from the proximal stomach. Small volume of ascites. 2. Small right hydropneumothorax. Small left pleural effusion. Labs Labs: Laboratory Results - last 24 hr 01/13/25 01/13/25 01/13/25 06:58 08:51 11:51 WBC 19.3 H RBC 3.44 L Hgb 10.9 L Hct 34.5 L MCV 100.3 H MCH 31.7 MCHC 31.6 L RDW 14.3 Plt Count 172 MPV 11.5 H Immature Gran % (Auto) 0.6 H Neut % (Auto) 89.8 H Lymph % (Auto) 4.4 L [place] % (Auto) 5.0 Eos % (Auto) 0.0 Baso % (Auto) 0.2 Lymph # (Auto) 0.86 L [place] # (Auto) 1.0 H Eos # (Auto) 0.0 Baso # (Auto) 0.0 Abs Immat Gran (auto) 0.12 H Absolute Neuts (auto) 17.5 H Absolute Nucleated RBC 0.000 Nucleated RBC % 0.0 APTT 29.8 Sodium 140 Potassium 4.5 Chloride 106 Carbon Dioxide 29 Anion Gap 5 BUN 21 H Creatinine 0.87 Estim Creat Clear Calc 43 Estimated GFR > 60 Glucose 128 H POC Capillary Glucose 109 H Calcium 8.5 Magnesium 1.8 Transferrin 134 L Total Bilirubin 0.5 AST 75 H ALT 35 Alkaline Phosphatase 58 Total Protein 5.0 L Albumin 2.7 L
[2025-01-13] MEDS: BENZOCAINE/MENTHOL (*BKC) 18 EA LOZENGE 1 LOZENGE PO (12:35)
--- NOTE | 2025-01-13 12:38 | P.PNAN_ITS ---
Anes - Prog Note Post-Op Date/Time: 01/13/25 12:38 Cardiovascular status: normal Respiratory status: normal Airway patency: baseline Mental status: baseline Post-Op hydration status: normal Vital Signs: Last Vital Signs Temp 36.5 C 01/13/25 09:35 Pulse 99 01/13/25 12:34 Resp 20 01/13/25 09:35 BP 116/61 01/13/25 09:35 Pulse Ox 90 01/13/25 09:35 O2 Del Method Nasal Cannula 01/13/25 08:02 O2 Flow Rate 1 01/13/25 08:02 Pain Score (VAS): 2 I/O: Intake & Output 01/12/25 01/13/25 01/13/25 23:59 07:59 15:59 Intake Total 1500 975 50 Output Total 131 130 Balance 1369 845 50 Laboratory Tests 01/13/25 06:58 01/13/25 06:58 01/13/25 01/13/25 01/13/25 06:58 08:51 11:51 WBC 19.3 H RBC 3.44 L Hgb 10.9 L Hct 34.5 L MCV 100.3 H MCH 31.7 MCHC 31.6 L RDW 14.3 Plt Count 172 MPV 11.5 H Immature Gran % (Auto) 0.6 H Neut % (Auto) 89.8 H Lymph % (Auto) 4.4 L [place] % (Auto) 5.0 Eos % (Auto) 0.0 Baso % (Auto) 0.2 Lymph # (Auto) 0.86 L [place] # (Auto) 1.0 H Eos # (Auto) 0.0 Baso # (Auto) 0.0 Abs Immat Gran (auto) 0.12 H Absolute Neuts (auto) 17.5 H Absolute Nucleated RBC 0.000 Nucleated RBC % 0.0 APTT 29.8 Sodium 140 Potassium 4.5 Chloride 106 Carbon Dioxide 29 Anion Gap 5 BUN 21 H Creatinine 0.87 Estim Creat Clear Calc 43 Estimated GFR > 60 Glucose 128 H POC Capillary Glucose 109 H Calcium 8.5 Magnesium 1.8 Transferrin 134 L Total Bilirubin 0.5 AST 75 H ALT 35 Alkaline Phosphatase 58 Total Protein 5.0 L Albumin 2.7 L Post-procedural complaints: none Patient Feedback: Patient satisfied with anesthetic care.
[2025-01-13] MEDS: ONDANSETRON INJ 4 MG/2 ML VIAL IV PUSH ×2 (12:56→17:49)
[2025-01-13] MEDS: CENTRAL LINE FLUSH 10 ML IV PUSH ×2 (14:00→20:49)
[2025-01-13] MEDS: AMINO ACIDS 5%/D15W/E-LYTES/CA 1,000 ML with MULTIVITAMINS-12 INJ VIAL 1 1.25 ML, MULTI... 40 ML IV CONT (14:26)
[2025-01-13] MEDS: FAT EMULSIONS IV 20% 250 ML 20.83 ML IVPB (14:26)
[2025-01-13 18:18] LABS: Glucose Point of Care 137 mg/dl (65-105)
[2025-01-14] VITALS (15 sets, daily range): BP systolic 123–140; BP diastolic 58–88; PULSE 61–106; RESP 16–22; TEMP 35.9–37; O2SAT 93–96
[2025-01-14] MEDS: LACTATED RINGERS 1,000 ML 60 ML IV CONT (00:28)
[2025-01-14] MEDS: METOPROLOL TARTRATE INJ 5 MG/5 ML VIAL IV PUSH ×4 (00:28→17:18)
[2025-01-14 00:32] LABS: Glucose Point of Care 149 mg/dl (65-105)
[2025-01-14] MEDS: PIPERACILLN/TAZ 3.375GM/NS50ML 3.375 GM/50 ML BAG IVPB ×4 (02:03→20:54)
[2025-01-14 04:44] LABS: Basophils Percent Auto 0.1 % (0.2-1.2); Eosinophils Percent Auto 0.2 % (0-4.4); Hematocrit 30.8 % (37.0-47.0); Hemoglobin 9.7 g/dL (12.0-15.0); Immature Granulocyte Absolute 0.09 K/mm3 (0.00-0.031); Immature Granulocyte Percent A 0.6 % (0-0.5); Lymphocytes Absolute Auto 0.86 K/mm3 (0.9-3.2); Lymphocytes Percent Auto 5.7 % (18.3-44.2); Mean Corpuscular HGB Conc 31.5 g/dl (32-36); Mean Corpuscular Hemoglobin 31.8 pg (26-34); Mean Platelet Volume 11.3 fl (7.4-10.4); Monocytes Absolute Auto 0.7 K/mm3 (0.1-0.6); Monocytes Percent Auto 4.9 % (2.6-8.5); Neutrophils Absolute Auto 13.3 K/mm3 (1.3-6.7); Neutrophils Percent Auto 88.5 % (45.5-73.1); Platelet Count Result 148 k/mm3 (150-375); Red Blood Count 3.05 M/mm3 (4.2-5.4); Red Cell Distribution Width 14.5 % (11.5-14.5)
[2025-01-14 04:57] LABS: Anion Gap 4 mmol/L (4-12); Blood Urea Nitrogen 19 mg/dL (7-17); Calcium 8.1 mg/dL (8.4-10.2); Carbon Dioxide 31 mmol/L (22-30); Chloride 106 mmol/L (98-107); Estimated CRCL calculation 53 ml/min; Estimated Glomerular Filt Rate > 60; Glucose 128 mg/dL (65-110); Phosphorus 2.3 mg/dL (2.5-4.5); Potassium 3.3 mmol/L (3.4-5.0); Sodium 141 mmol/L (137-145); Triglycerides 118 mg/dL (<150)
[2025-01-14 06:16] LABS: Glucose Point of Care 133 mg/dl (65-105)
[2025-01-14] MEDS: CENTRAL LINE FLUSH 10 ML IV PUSH ×3 (06:17→20:54)
[2025-01-14] MEDS: IBUPROFEN IV 800 MG/200 ML 800 MG/200 ML BAG 400 MG IVPB ×3 (06:18→17:30)
[2025-01-14] MEDS: KCL 40 MEQ/WATER 100 ML 100 ML 25 ML IVPB (07:49)
[2025-01-14] MEDS: ONDANSETRON INJ 4 MG/2 ML VIAL IV PUSH (08:14)
[2025-01-14] MEDS: ENOXAPARIN 40 MG/0.4 ML SYRINGE SUB-Q (08:48)
[2025-01-14] MEDS: PANTOPRAZOLE SODIUM IV 40 MG VIAL IV PUSH ×2 (08:48→20:54)
--- NOTE | 2025-01-14 08:53 | PCNFU ---
Nutrition Follow-Up Complete: Inadequate oral intake related to altered GI function, recent surgery as evidenced by need for TPN Meet estimated protein energy needs - Progressing with advancement of TPN Diet advancement as medically able - Not progressing yet. Continue with same goals Goal: Pt current nutrition is TPN Clinmix E /15 w/ lipids @60 ml/h. Nutrition recommendation: No new nutrition recommendations. Continue with current nutrition care plan and orders. Last recorded weight is 80.8 kg. Bowel Motility: +3 BMs 01/14/25 Labs Reviewed: Hgb 9.7, Hct 30.8, K+ 3.3, BUN 19, Cre 0.69, Glu 128 Meds Noted: Kcl, protonix, zosyn Skin:Incision to abdomen Additional Notes: TPN @ 60 ml/h providing 1522 kcal, 72 g protein, 1690 ml total volume. Meeting ~75% estimated needs. Adequate for needs. Agree with orders. Monitoring TPN tolerance, diet advancement, plan of care, weights, labs Follow up Friday and Friday per policy
--- NOTE | 2025-01-14 09:52 | P.PNGS_ITS ---
Progress Note: A&P Assessment and Plan (1) Gastric leak: Code(s): K91.89 - Other postprocedural complications and disorders of digestive system Status: Acute Assessment and Plan: Repaired 01/12/25 with omentoplasty and placement of drain, no signs of sepsis. Continue NPO, NG tube, Zosyn antibiotics. (2) Diarrhea: Qualifiers: Diarrhea type: unspecified type Qualified Code(s): R19.7 - Diarrhea, unspecified Code(s): R19.7 - Diarrhea, unspecified Status: Acute Assessment and Plan: Multiple stools yesterday and patient incontinent of stool. May possibly be due to passage of water-soluble contrast given 01/12/2025. Will try Imodium and clamp NG tube. Potassium decreased to 3.3 today probably due to the diarrhea. Will supplement. (3) Hiatal hernia: Code(s): K44.9 - Diaphragmatic hernia without obstruction or gangrene Status: Acute Assessment and Plan: Redo repair with partial fundoplication and fundopexy 01/11/2025 (4) History of repair of hiatal hernia: Code(s): Z98.890 - Other specified postprocedural states; Z87.19 - Personal history of other diseases of the digestive system Status: Chronic Assessment and Plan: Paraesophageal hiatal hernia repair 9 months ago, had recurrence and stricture with dysphagia prior to recent surgery 01/11/2025 (5) Protein-calorie malnutrition, moderate: Code(s): E44.0 - Moderate protein-calorie malnutrition Status: Acute Assessment and Plan: Continue TPN, rate increased to 60 cc an hour today. Dietitians note appreciated. Subjective Subjective Date/Time Seen: 01/14/25 09:52 Post Op day: 2 Patient reports: still having pain (Mostly with movement, cough in mid upper abdomen), diarrhea (Multiple stools and incontinent of stool) and afebrile Exam Const: General: comfortable, awake and tired appearing Orientation/consciousness: patient oriented x3 and No confusion Resp: Effort & Inspection: normal respiratory effort Auscultation: clear to auscultation bilaterally Cardio: Rate: regular rate Rhythm: regular rhythm GI: Inspection: non-distended, incision (Incisions dry and intact), no visible herniation and other (Serosanguineous POWER output) GI Palp: Yes Soft to palpation, Yes Tenderness to palpation present (GI) (Upper abdomen, most in epigastric area), No Guarding due to palpation present (GI) and No Rebound tenderness present Auscultation: Hypoactive bowel sounds present Neuro: General: patient oriented x3 and no focal motor deficits Extrem: General: no calf tenderness and no edema Psych: Affect: normal affect Insight: Good insight present (Psych) Judgement: Good judgement present (Psych) Objective Data Vital Signs Vital Signs: Vital Signs - 24 hr 01/13/25 12:03 01/13/25 12:34 01/13/25 12:59 Temperature Pulse Rate 117 H 99 Respiratory Rate Blood Pressure Pulse Oximetry Oxygen Delivery Nasal Cannula Oxygen Flow Rate 2 01/13/25 13:35 01/13/25 14:05 01/13/25 16:02 Temperature 36.6 C Pulse Rate 72 82 Respiratory Rate 16 Blood Pressure 124/63 Pulse Oximetry 93 Oxygen Delivery Nasal Cannula Oxygen Flow Rate 1 01/13/25 17:35 01/13/25 18:13 01/13/25 20:00 Temperature 36.8 C Pulse Rate 110 H 85 Respiratory Rate 16 Blood Pressure 132/72 Pulse Oximetry 94 94 Oxygen Delivery Nasal Cannula Oxygen Flow Rate 1 01/13/25 20:00 01/13/25 20:20 01/13/25 21:17 Temperature 36.4 C Pulse Rate 73 107 H Respiratory Rate 20 Blood Pressure 130/77 Pulse Oximetry 94 94 Oxygen Delivery Nasal Cannula Oxygen Flow Rate 1 01/14/25 00:00 01/14/25 00:25 01/14/25 00:28 Temperature 37.0 C Pulse Rate 105 H 82 82 Respiratory Rate 22 H Blood Pressure 130/62 Pulse Oximetry 96 Oxygen Delivery Oxygen Flow Rate 01/14/25 04:00 01/14/25 04:50 01/14/25 05:58 Temperature 36.1 C L Pulse Rate 61 69 106 H Respiratory Rate 16 Blood Pressure 123/58 L Pulse Oximetry 93 Oxygen Delivery Oxygen Flow Rate 01/14/25 08:03 Temperature 35.9 C L Pulse Rate 62 Respiratory Rate 18 Blood Pressure 140/88 Pulse Oximetry 94 Oxygen Delivery Oxygen Flow Rate Intake/Output Intake/Output: Intake & Output 01/11/25 01/12/25 01/13/25 01/14/25 23:59 23:59 23:59 23:59 Intake Total 250 2900 2525.0 60 Output Total 350 241 530 310 Balance -100 2659 1995.0 -250 Meds/Results Medications: Active Medications Generic Name Dose Route Start Last Admin Trade Name Freq PRN Reason Stop Dose Admin Benzocaine 1 lozenge 01/13/25 11:27 01/13/25 12:35 Benzocaine/Menthol (*Bkc) 18 Ea Lozenge PO 1 lozenge PRN PRN Administration Sore Throat Enoxaparin Sodium 40 mg 01/12/25 10:24 01/14/25 08:48 Enoxaparin 40 Mg/0.4 Ml Syringe SUB-Q 40 mg DAILY AKSHAT Administration Fentanyl Citrate 12.5 mcg 01/11/25 21:32 01/12/25 10:39 Fentanyl Citrate Inj (*Crx) 100 Mcg/2 Ml Vial IV PUSH 12.5 mcg Q2H PRN Administration Breakthrough Pain Rated 4-6 or NPO Fentanyl Citrate 25 mcg 01/11/25 21:32 01/12/25 07:45 Fentanyl Citrate Inj (*Crx) 100 Mcg/2 Ml Vial IV PUSH 25 mcg Q2H PRN Administration Breakthrough Pain Rated 7-10 or NPO Ibuprofen 800 mg in 200 mls @ 400 mls/hr 01/11/25 21:32 01/14/25 06:18 Caldolor 800 Mg/200 Ml IVPB 400 mls/hr Q6H PRN Administration Breakthrough Pain Rated 1-3 or NPO Piperacillin/Tazobactam/Dextrose 3.375 gm in 50 mls @ 100 mls/hr 01/13/25 09:00 01/14/25 08:55 Zosyn 3.375 Gm/Ns 50 Ml IVPB 100 mls/hr Q6H AKSHAT Administration Dextrose 1,000 mls @ 50 mls/hr 01/13/25 08:04 Dextrose 10% IV CONT .Q20H PRN if PN is interrupted Multivitamins 1.25 ml/ 1,002.5 mls @ 60 mls/hr 01/13/25 14:00 01/13/25 14:26 Multivitamins 1.25 ml/ Amino IV CONT 40 mls/hr Acids/Electrolytes/Dextrose .[id number] AKSHAT Administration Protocol Fat Emulsion Intravenous 250 mls @ 20.833 mls/hr 01/13/25 14:00 01/13/25 14:26 Lipids 20% IVPB 20.83 mls/hr Q24H AKSHAT Administration Potassium Chloride/Dextrose/Sod Cl 1,000 mls @ 40 mls/hr 01/14/25 06:40 Kcl 40 Meq/D5ns IV CONT .Q24H AKSHAT Potassium Chloride 100 mls @ 25 mls/hr 01/14/25 06:37 01/14/25 07:49 Kcl 40 Meq/Water 100 Ml IVPB 01/14/25 10:36 25 mls/hr ONCE ONE Administration Insulin Human Regular 0 units 01/13/25 18:00 01/14/25 06:16 Insulin Human Regular (*Bkc) 100 Units/Ml SUB-Q Not Given Q6HR [facility] Protocol Loperamide HCl 2 mg 01/14/25 09:47 Loperamide Hcl 2 Mg Capsule PO PRN PRN Diarrhea Metoprolol Tartrate 5 mg 01/11/25 22:00 01/14/25 05:58 Metoprolol Tartrate Inj 5 Mg/5 Ml Vial IV PUSH 5 mg Q6HR AKSHAT Administration Naloxone HCl 0.1 mg 01/11/25 21:32 Naloxone Hcl 0.4 Mg/Ml Vial IV PUSH Q2M PRN Opiate Reversal Ondansetron HCl 4 mg 01/11/25 21:32 01/14/25 08:14 Ondansetron Inj 4 Mg/2 Ml Vial IV PUSH 4 mg Q4H PRN Administration Nausea And Vomiting Pantoprazole Sodium 40 mg 01/11/25 21:32 01/14/25 08:48 Pantoprazole Sodium Iv 40 Mg Vial IV PUSH 40 mg Q12HR AKSHAT Administration Sodium Chloride 10 ml 01/13/25 14:00 01/14/25 06:17 Central Line Flush IV PUSH 10 ml Q8HR AKSHAT Administration Sodium Chloride 10 ml 01/13/25 10:14 Central Line Flush IV PUSH PRN PRN with TPN bag changes Sodium Chloride 20 ml 01/13/25 10:14 Central Line Flush IV PUSH PRN PRN after blood draws Radiology Results: ITS Impressions Abdomen X-Ray 01/11/25 18:39 IMPRESSION: Nasogastric tube in good position and ready for immediate use. Extensive subcutaneous air, presumably perioperative. Mediastinal air is also noted. Upper GI Series 01/12/25 10:11 IMPRESSION: 1. Extraluminal leakage of contrast from the proximal stomach. Abdomen CT 01/12/25 12:08 IMPRESSION: 1. Oral contrast in left paracolic gutter secondary to leakage from the proximal stomach. Small volume of ascites. 2. Small right hydropneumothorax. Small left pleural effusion. Chest X-Ray 01/13/25 14:09 IMPRESSION: Small bilateral pleural effusions, with adjacent compressive atelectasis. Right upper extremity PICC line in good position and ready for immediate use. Labs Labs: Laboratory Results - last 24 hr 01/13/25 01/13/25 01/14/25 11:51 18:15 00:27 WBC RBC Hgb Hct MCV MCH MCHC RDW Plt Count MPV Immature Gran % (Auto) Neut % (Auto) Lymph % (Auto) [place] % (Auto) Eos % (Auto) Baso % (Auto) Lymph # (Auto) [place] # (Auto) Eos # (Auto) Baso # (Auto) Abs Immat Gran (auto) Absolute Neuts (auto) Absolute Nucleated RBC Nucleated RBC % Sodium Potassium Chloride Carbon Dioxide Anion Gap BUN Creatinine Estim Creat Clear Calc Estimated GFR Glucose POC Capillary Glucose 109 H 137 H 149 H Calcium Phosphorus Triglycerides 01/14/25 01/14/25 04:28 06:14 WBC 15.0 H RBC 3.05 L Hgb 9.7 L Hct 30.8 L MCV 101.0 H MCH 31.8 MCHC 31.5 L RDW 14.5 Plt Count 148 L MPV 11.3 H Immature Gran % (Auto) 0.6 H Neut % (Auto) 88.5 H Lymph % (Auto) 5.7 L [place] % (Auto) 4.9 Eos % (Auto) 0.2 Baso % (Auto) 0.1 L Lymph # (Auto) 0.86 L [place] # (Auto) 0.7 H Eos # (Auto) 0.0 Baso # (Auto) 0.0 Abs Immat Gran (auto) 0.09 H Absolute Neuts (auto) 13.3 H Absolute Nucleated RBC 0.000 Nucleated RBC % 0.0 Sodium 141 Potassium 3.3 L Chloride 106 Carbon Dioxide 31 H Anion Gap 4 BUN 19 H Creatinine 0.69 L Estim Creat Clear Calc 53 Estimated GFR > 60 Glucose 128 H POC Capillary Glucose 133 H Calcium 8.1 L Phosphorus 2.3 L Triglycerides 118
--- NOTE | 2025-01-14 10:07 | PCOTNOTE ---
Attempted to see Patient at this time. Patient declining and unable to participate at this time. Patient having increased nausea, vomiting, and loose stools.
[2025-01-14] MEDS: LOPERAMIDE HCL 2 MG CAPSULE PO (10:12)
[2025-01-14] MEDS: KCL 40 MEQ/D5/0.9% SOD CHL 1,000 ML 40 ML IV CONT (11:08)
[2025-01-14] MEDS: PROCHLORPERAZINE EDISYLATE 10 MG/2 ML VIAL IV PUSH ×2 (11:48→21:27)
[2025-01-14 12:11] LABS: Glucose Point of Care 120 mg/dl (65-105)
[2025-01-14] MEDS: AMINO ACIDS 5%/D15W/E-LYTES/CA 1,000 ML with MULTIVITAMINS-12 INJ VIAL 1 1.25 ML, MULTI... 60 ML IV CONT (13:20)
[2025-01-14] MEDS: FAT EMULSIONS IV 20% 250 ML 20.83 ML IVPB (13:23)
--- NOTE | 2025-01-14 14:33 | PCOTNOTE ---
Patient refused treatment this session due to fatigue, pain 4-5/10. No complaint of nausea at this time.
[2025-01-14 18:50] LABS: Glucose Point of Care 161 mg/dl (65-105)
[2025-01-14] MEDS: fentaNYL CITRATE INJ (*CRX) 100 MCG/2 ML VIAL 12.5 MCG IV PUSH (21:25)
[2025-01-15] VITALS (10 sets, daily range): BP systolic 127–160; BP diastolic 65–81; PULSE 67–118; RESP 14–20; TEMP 36.2–36.9; O2SAT 94–99
[2025-01-15 00:17] LABS: Glucose Point of Care 146 mg/dl (65-105)
[2025-01-15] MEDS: IBUPROFEN IV 800 MG/200 ML 800 MG/200 ML BAG 400 MG IVPB ×2 (00:49→17:45)
[2025-01-15] MEDS: METOPROLOL TARTRATE INJ 5 MG/5 ML VIAL IV PUSH ×4 (00:51→18:42)
[2025-01-15] MEDS: PIPERACILLN/TAZ 3.375GM/NS50ML 3.375 GM/50 ML BAG IVPB ×4 (03:18→20:50)
[2025-01-15] MEDS: AMINO ACIDS 5%/D15W/E-LYTES/CA 1,000 ML with MULTIVITAMINS-12 INJ VIAL 1 1.25 ML, MULTI... 60 ML IV CONT ×2 (05:04→22:37)
[2025-01-15] MEDS: KCL 40 MEQ/D5/0.9% SOD CHL 1,000 ML 40 ML IV CONT (05:05)
[2025-01-15] MEDS: CENTRAL LINE FLUSH 10 ML IV PUSH ×3 (05:08→20:50)
[2025-01-15 05:28] LABS: Hematocrit 30.5 % (37.0-47.0); Hemoglobin 9.5 g/dL (12.0-15.0); Mean Corpuscular HGB Conc 31.1 g/dl (32-36); Mean Corpuscular Hemoglobin 31.5 pg (26-34); Platelet Count Result 165 k/mm3 (150-375); Red Blood Count 3.02 M/mm3 (4.2-5.4); Red Cell Distribution Width 14.5 % (11.5-14.5); White Blood Count 12.7 K/mm3 (4.5-10.0)
[2025-01-15 05:38] LABS: Anion Gap 5 mmol/L (4-12); Blood Urea Nitrogen 16 mg/dL (7-17); Carbon Dioxide 28 mmol/L (22-30); Chloride 108 mmol/L (98-107); Estimated CRCL calculation 66 ml/min; Estimated Glomerular Filt Rate > 60; Glucose 124 mg/dL (65-110); Phosphorus 2.5 mg/dL (2.5-4.5); Potassium 3.5 mmol/L (3.4-5.0); Sodium 141 mmol/L (137-145)
[2025-01-15] MEDS: PROCHLORPERAZINE EDISYLATE 10 MG/2 ML VIAL IV PUSH ×3 (05:38→22:30)
[2025-01-15 05:55] LABS: Glucose Point of Care 140 mg/dl (65-105)
[2025-01-15] MEDS: ENOXAPARIN 40 MG/0.4 ML SYRINGE SUB-Q (08:56)
[2025-01-15] MEDS: PANTOPRAZOLE SODIUM IV 40 MG VIAL IV PUSH ×2 (08:56→20:47)
[2025-01-15 12:03] LABS: Glucose Point of Care 137 mg/dl (65-105)
[2025-01-15] MEDS: FAT EMULSIONS IV 20% 250 ML 20.83 ML IVPB (13:51)
--- NOTE | 2025-01-15 14:46 | P.PNGS_ITS ---
Progress Note: A&P Assessment and Plan (1) Gastric leak: Code(s): K91.89 - Other postprocedural complications and disorders of digestive system Status: Acute Assessment and Plan: Repaired 01/12/25 with omentoplasty and placement of drain, no signs of sepsis. Continue NPO, NG tube, Zosyn antibiotics. Possible UGI tomorrow if drain output and labs still looking ok. (2) Hiatal hernia: Code(s): K44.9 - Diaphragmatic hernia without obstruction or gangrene Status: Acute Assessment and Plan: Redo repair with partial fundoplication and fundopexy 01/11/2025 (3) History of repair of hiatal hernia: Code(s): Z98.890 - Other specified postprocedural states; Z87.19 - Personal history of other diseases of the digestive system Status: Chronic Assessment and Plan: Paraesophageal hiatal hernia repair 9 months ago, had recurrence and stricture with dysphagia prior to recent surgery 01/11/2025 (4) Protein-calorie malnutrition, moderate: Code(s): E44.0 - Moderate protein-calorie malnutrition Status: Acute Assessment and Plan: Continue TPN, 60 mL per hour. Dietitians note appreciated. Subjective Subjective Date/Time Seen: 01/15/25 14:46 Interval history: Still having mostly upper abdominal pain. Also having occasional retching from NG discomfort. Has tried lozenge without relief. Up with some activity today. Using incentive spirometer. Up to chair. Exam GI: Inspection: incision (intact with glue) and other (POWER serosanguinous) GI Palp: Yes Soft to palpation, Yes Tenderness to palpation present (GI) (epigastric), No Guarding due to palpation present (GI) and No Rebound tenderness present Auscultation: Hypoactive bowel sounds present Objective Data Vital Signs Vital Signs: Vital Signs - 24 hr 01/14/25 16:00 01/14/25 17:18 01/14/25 17:18 Temperature Pulse Rate 68 101 H Respiratory Rate Blood Pressure 132/64 Pulse Oximetry Oxygen Delivery Oxygen Flow Rate 01/14/25 20:00 01/14/25 20:00 01/14/25 22:03 Temperature 98.3 F Pulse Rate 69 70 Respiratory Rate 16 Blood Pressure 138/69 Pulse Oximetry 94 94 Oxygen Delivery Nasal Cannula Oxygen Flow Rate 1 01/15/25 00:00 01/15/25 00:18 01/15/25 00:51 Temperature 97.6 F Pulse Rate 67 98 84 Respiratory Rate 18 Blood Pressure 137/81 Pulse Oximetry 94 Oxygen Delivery Oxygen Flow Rate 01/15/25 04:00 01/15/25 04:00 01/15/25 05:06 Temperature 98.5 F Pulse Rate 90 67 98 Respiratory Rate 20 Blood Pressure 127/77 Pulse Oximetry 95 Oxygen Delivery Oxygen Flow Rate 01/15/25 08:00 01/15/25 09:30 01/15/25 12:00 Temperature 97.1 F L 97.2 F L Pulse Rate 74 75 Respiratory Rate 14 18 Blood Pressure 143/71 H 155/75 H Pulse Oximetry 95 99 95 Oxygen Delivery Nasal Cannula Oxygen Flow Rate 1 Intake/Output Intake/Output: Intake & Output 01/12/25 01/13/25 01/14/25 01/15/25 23:59 23:59 23:59 23:59 Intake Total 2900 2525.0 2011 Output Total 241 530 370 575 Balance 2659 1994.0 1629.7 1437 Meds/Results Medications: Active Medications Generic Name Dose Route Start Last Admin Trade Name Freq PRN Reason Stop Dose Admin Benzocaine 1 lozenge 01/13/25 11:27 01/13/25 12:35 Benzocaine/Menthol (*Bkc) 18 Ea Lozenge PO 1 lozenge PRN PRN Administration Sore Throat Enoxaparin Sodium 40 mg 01/12/25 10:24 01/15/25 08:56 Enoxaparin 40 Mg/0.4 Ml Syringe SUB-Q 40 mg DAILY AKSHAT Administration Fentanyl Citrate 12.5 mcg 01/11/25 21:32 01/14/25 21:25 Fentanyl Citrate Inj (*Crx) 100 Mcg/2 Ml Vial IV PUSH 12.5 mcg Q2H PRN Administration Breakthrough Pain Rated 4-6 or NPO Fentanyl Citrate 25 mcg 01/11/25 21:32 01/12/25 07:45 Fentanyl Citrate Inj (*Crx) 100 Mcg/2 Ml Vial IV PUSH 25 mcg Q2H PRN Administration Breakthrough Pain Rated 7-10 or NPO Ibuprofen 800 mg in 200 mls @ 400 mls/hr 01/11/25 21:32 01/15/25 00:49 Caldolor 800 Mg/200 Ml IVPB 400 mls/hr Q6H PRN Administration Breakthrough Pain Rated 1-3 or NPO Piperacillin/Tazobactam/Dextrose 3.375 gm in 50 mls @ 100 mls/hr 01/13/25 09:00 01/15/25 14:34 Zosyn 3.375 Gm/Ns 50 Ml IVPB 100 mls/hr Q6H AKSHAT Administration Dextrose 1,000 mls @ 50 mls/hr 01/13/25 08:04 Dextrose 10% IV CONT .Q20H PRN if PN is interrupted Multivitamins 1.25 ml/ 1,002.5 mls @ 60 mls/hr 01/13/25 14:00 01/15/25 05:04 Multivitamins 1.25 ml/ Amino IV CONT 60 mls/hr Acids/Electrolytes/Dextrose .[id number] AKSHAT Administration Protocol Fat Emulsion Intravenous 250 mls @ 20.833 mls/hr 01/13/25 14:00 01/15/25 13:51 Lipids 20% IVPB 20.83 mls/hr Q24H AKSHAT Administration Potassium Chloride/Dextrose/Sod Cl 1,000 mls @ 40 mls/hr 01/14/25 06:40 01/15/25 05:05 Kcl 40 Meq/D5ns IV CONT 40 mls/hr .Q24H AKSHAT Administration Insulin Human Regular 0 units 01/13/25 18:00 01/15/25 12:49 Insulin Human Regular (*Bkc) 100 Units/Ml SUB-Q Not Given Q6HR [facility] Protocol Loperamide HCl 2 mg 01/14/25 09:47 01/14/25 10:12 Loperamide Hcl 2 Mg Capsule PO 2 mg PRN PRN Administration Diarrhea Metoprolol Tartrate 5 mg 01/11/25 22:00 01/15/25 12:50 Metoprolol Tartrate Inj 5 Mg/5 Ml Vial IV PUSH 5 mg Q6HR AKSHAT Administration Naloxone HCl 0.1 mg 01/11/25 21:32 Naloxone Hcl 0.4 Mg/Ml Vial IV PUSH Q2M PRN Opiate Reversal Ondansetron HCl 4 mg 01/11/25 21:32 01/14/25 08:14 Ondansetron Inj 4 Mg/2 Ml Vial IV PUSH 4 mg Q4H PRN Administration Nausea And Vomiting Pantoprazole Sodium 40 mg 01/11/25 21:32 01/15/25 08:56 Pantoprazole Sodium Iv 40 Mg Vial IV PUSH 40 mg Q12HR AKSHAT Administration Phenol 1 spray 01/15/25 14:45 Phenol/Sod Pheno [place] Esquivel (*Bkc) MUCOUS MEM PRN PRN Sore Throat Prochlorperazine Edisylate 10 mg 01/14/25 11:33 01/15/25 05:38 Prochlorperazine Edisylate 10 Mg/2 Ml Vial IV PUSH 10 mg Q6H PRN Administration Nausea And Vomiting Sodium Chloride 10 ml 01/13/25 14:00 01/15/25 14:16 Central Line Flush IV PUSH 10 ml Q8HR AKSHAT Administration Sodium Chloride 10 ml 01/13/25 10:14 Central Line Flush IV PUSH PRN PRN with TPN bag changes Sodium Chloride 20 ml 01/13/25 10:14 Central Line Flush IV PUSH PRN PRN after blood draws Radiology Results: ITS Impressions Abdomen X-Ray 01/11/25 18:39 IMPRESSION: Nasogastric tube in good position and ready for immediate use. Extensive subcutaneous air, presumably perioperative. Mediastinal air is also noted. Upper GI Series 01/12/25 10:11 IMPRESSION: 1. Extraluminal leakage of contrast from the proximal stomach. Abdomen CT 01/12/25 12:08 IMPRESSION: 1. Oral contrast in left paracolic gutter secondary to leakage from the proximal stomach. Small volume of ascites. 2. Small right hydropneumothorax. Small left pleural effusion. Chest X-Ray 01/13/25 14:09 IMPRESSION: Small bilateral pleural effusions, with adjacent compressive atelectasis. Right upper extremity PICC line in good position and ready for immediate use. Labs Labs: Laboratory Results - last 24 hr 01/14/25 01/15/25 01/15/25 18:48 00:07 05:20 WBC 12.7 H RBC 3.02 L Hgb 9.5 L Hct 30.5 L MCV 101.0 H MCH 31.5 MCHC 31.1 L RDW 14.5 Plt Count 165 MPV 11.0 H Sodium 141 Potassium 3.5 Chloride 108 H Carbon Dioxide 28 Anion Gap 5 BUN 16 Creatinine 0.54 L Estim Creat Clear Calc 66 Estimated GFR > 60 Glucose 124 H POC Capillary Glucose 161 H 146 H Calcium 8.0 L Phosphorus 2.5 03/08/25 03/08/25 05:52 12:00 WBC RBC Hgb Hct MCV MCH MCHC RDW Plt Count MPV Sodium Potassium Chloride Carbon Dioxide Anion Gap BUN Creatinine Estim Creat Clear Calc Estimated GFR Glucose POC Capillary Glucose 140 H 137 H Calcium Phosphorus
[2025-01-15 18:42] LABS: Glucose Point of Care 140 mg/dl (65-105)
[2025-01-15] MEDS: fentaNYL CITRATE INJ (*CRX) 100 MCG/2 ML VIAL 12.5 MCG IV PUSH (22:29)
[2025-01-16] VITALS (12 sets, daily range): BP systolic 133–155; BP diastolic 62–93; PULSE 66–112; RESP 16–20; TEMP 36.2–37.1; O2SAT 94–96
[2025-01-16 00:29] LABS: Glucose Point of Care 138 mg/dl (65-105)
[2025-01-16] MEDS: METOPROLOL TARTRATE INJ 5 MG/5 ML VIAL IV PUSH ×5 (00:47→23:04)
[2025-01-16] MEDS: PIPERACILLN/TAZ 3.375GM/NS50ML 3.375 GM/50 ML BAG IVPB ×4 (03:58→21:35)
[2025-01-16] MEDS: fentaNYL CITRATE INJ (*CRX) 100 MCG/2 ML VIAL 25 MCG IV PUSH ×2 (04:43→21:34)
[2025-01-16 05:20] LABS: Hematocrit 30.4 % (37.0-47.0); Hemoglobin 9.7 g/dL (12.0-15.0); Mean Corpuscular HGB Conc 31.9 g/dl (32-36); Mean Corpuscular Hemoglobin 31.8 pg (26-34); Mean Corpuscular Volume 99.7 fl (80-100); Mean Platelet Volume 10.6 fl (7.4-10.4); Platelet Count Result 181 k/mm3 (150-375); Red Blood Count 3.05 M/mm3 (4.2-5.4); Red Cell Distribution Width 14.1 % (11.5-14.5); White Blood Count 10.8 K/mm3 (4.5-10.0)
[2025-01-16 05:37] LABS: Anion Gap 4 mmol/L (4-12); Blood Urea Nitrogen 14 mg/dL (7-17); Calcium 7.9 mg/dL (8.4-10.2); Carbon Dioxide 31 mmol/L (22-30); Chloride 103 mmol/L (98-107); Estimated CRCL calculation 73 ml/min; Estimated Glomerular Filt Rate > 60; Glucose 116 mg/dL (65-110); Phosphorus 2.5 mg/dL (2.5-4.5); Potassium 3.4 mmol/L (3.4-5.0); Sodium 138 mmol/L (137-145); Triglycerides 121 mg/dL (<150)
[2025-01-16] MEDS: CENTRAL LINE FLUSH 10 ML IV PUSH ×3 (05:40→21:35)
[2025-01-16 06:00] LABS: Glucose Point of Care 140 mg/dl (65-105)
[2025-01-16] MEDS: PROCHLORPERAZINE EDISYLATE 10 MG/2 ML VIAL IV PUSH ×3 (06:06→23:04)
[2025-01-16] MEDS: ENOXAPARIN 40 MG/0.4 ML SYRINGE SUB-Q (09:53)
[2025-01-16] MEDS: PANTOPRAZOLE SODIUM IV 40 MG VIAL IV PUSH ×2 (09:53→21:34)
--- NOTE | 2025-01-16 11:01 | PM.PNGS ---
Progress Note: A&P Assessment and Plan (1) Gastric leak: Code(s): K91.89 - Other postprocedural complications and disorders of digestive system Status: Acute Assessment and Plan: Repaired 01/12/25 with omentoplasty and placement of drain, no signs of sepsis. Continue NPO, NG tube, Zosyn antibiotics. UGI today--will determine if NG can be removed based on these results. (2) Hiatal hernia: Code(s): K44.9 - Diaphragmatic hernia without obstruction or gangrene Status: Acute Assessment and Plan: Redo repair with partial fundoplication and fundopexy 01/11/2025 (3) History of repair of hiatal hernia: Code(s): Z98.890 - Other specified postprocedural states; Z87.19 - Personal history of other diseases of the digestive system Status: Chronic Assessment and Plan: Paraesophageal hiatal hernia repair 9 months ago, had recurrence and stricture with dysphagia prior to recent surgery 01/11/2025 (4) Protein-calorie malnutrition, moderate: Code(s): E44.0 - Moderate protein-calorie malnutrition Status: Acute Assessment and Plan: Continue TPN, 60 mL per hour. Dietitians note appreciated. Subjective Subjective Date/Time Seen: 01/16/25 11:01 Interval history: Mostly still c/o NG throat irritation and retching occasionally. Hasn't really happened much this morning. No fevers. Pain controlled. Up out of bed and ambulating a little. Exam GI: Inspection: incision (intact with glue) and other (POWER serosanguinous) GI Palp: Yes Soft to palpation, Yes Tenderness to palpation present (GI) (epigastric), No Guarding due to palpation present (GI) and No Rebound tenderness present Auscultation: Hypoactive bowel sounds present Objective Data Vital Signs Vital Signs: Vital Signs - 24 hr 01/15/25 12:00 01/15/25 12:00 01/15/25 16:00 Temperature 97.2 F L 98.4 F Pulse Rate 75 118 H 84 Respiratory Rate 18 18 Blood Pressure 155/75 H 160/79 H Pulse Oximetry 95 96 Oxygen Delivery Oxygen Flow Rate 01/15/25 16:00 01/15/25 20:00 01/15/25 20:00 Temperature 98.5 F Pulse Rate 93 68 Respiratory Rate 16 Blood Pressure 142/65 H Pulse Oximetry 98 95 Oxygen Delivery Nasal Cannula Oxygen Flow Rate 1 01/15/25 20:00 01/16/25 00:00 01/16/25 00:00 Temperature 98.5 F Pulse Rate 74 66 67 Respiratory Rate 16 Blood Pressure 134/62 Pulse Oximetry 95 Oxygen Delivery Oxygen Flow Rate 01/16/25 00:47 01/16/25 04:00 01/16/25 04:00 Temperature 98.5 F Pulse Rate 71 66 102 H Respiratory Rate 16 Blood Pressure 133/73 Pulse Oximetry 94 Oxygen Delivery Oxygen Flow Rate 01/16/25 06:02 01/16/25 08:00 Temperature 98.1 F Pulse Rate 92 102 H Respiratory Rate 16 Blood Pressure 140/90 Pulse Oximetry 95 Oxygen Delivery Oxygen Flow Rate Intake/Output Intake/Output: Intake & Output 01/13/25 01/14/25 01/15/25 01/17/25 23:59 23:59 23:59 00:59 Intake Total 2525.0 1999.7 3314.5 50 Output Total 530 370 605 750 Balance 1995.0 1629.7 2709.5 -700 Meds/Results Medications: Active Medications Generic Name Dose Route Start Last Admin Trade Name Freq PRN Reason Stop Dose Admin Benzocaine 1 lozenge 01/13/25 11:27 01/13/25 12:35 Benzocaine/Menthol (*Bkc) 18 Ea Lozenge PO 1 lozenge PRN PRN Administration Sore Throat Enoxaparin Sodium 40 mg 01/12/25 10:24 01/16/25 09:53 Enoxaparin 40 Mg/0.4 Ml Syringe SUB-Q 40 mg DAILY AKSHAT Administration Fentanyl Citrate 12.5 mcg 01/11/25 21:32 01/15/25 22:29 Fentanyl Citrate Inj (*Crx) 100 Mcg/2 Ml Vial IV PUSH 12.5 mcg Q2H PRN Administration Breakthrough Pain Rated 4-6 or NPO Fentanyl Citrate 25 mcg 01/11/25 21:32 01/16/25 04:43 Fentanyl Citrate Inj (*Crx) 100 Mcg/2 Ml Vial IV PUSH 25 mcg Q2H PRN Administration Breakthrough Pain Rated 7-10 or NPO Ibuprofen 800 mg in 200 mls @ 400 mls/hr 01/11/25 21:32 01/15/25 17:45 Caldolor 800 Mg/200 Ml IVPB 400 mls/hr Q6H PRN Administration Breakthrough Pain Rated 1-3 or NPO Piperacillin/Tazobactam/Dextrose 3.375 gm in 50 mls @ 100 mls/hr 01/13/25 09:00 01/16/25 10:07 Zosyn 3.375 Gm/Ns 50 Ml IVPB 100 mls/hr Q6H AKSHAT Administration Dextrose 1,000 mls @ 50 mls/hr 01/13/25 08:04 Dextrose 10% IV CONT .Q20H PRN if PN is interrupted Multivitamins 1.25 ml/ 1,002.5 mls @ 60 mls/hr 01/13/25 14:00 01/15/25 22:37 Multivitamins 1.25 ml/ Amino IV CONT 60 mls/hr Acids/Electrolytes/Dextrose .[id number] AKSHAT Administration Protocol Fat Emulsion Intravenous 250 mls @ 20.833 mls/hr 01/13/25 14:00 01/15/25 13:51 Lipids 20% IVPB 20.83 mls/hr Q24H AKSHAT Administration Potassium Chloride/Dextrose/Sod Cl 1,000 mls @ 40 mls/hr 01/14/25 06:40 01/15/25 05:05 Kcl 40 Meq/D5ns IV CONT 40 mls/hr .Q24H AKSHAT Administration Insulin Human Regular 0 units 01/13/25 18:00 01/16/25 05:39 Insulin Human Regular (*Bkc) 100 Units/Ml SUB-Q Not Given Q6HR [facility] Protocol Loperamide HCl 2 mg 01/14/25 09:47 01/14/25 10:12 Loperamide Hcl 2 Mg Capsule PO 2 mg PRN PRN Administration Diarrhea Metoprolol Tartrate 5 mg 01/11/25 22:00 01/16/25 06:02 Metoprolol Tartrate Inj 5 Mg/5 Ml Vial IV PUSH 5 mg Q6HR AKSHAT Administration Naloxone HCl 0.1 mg 01/11/25 21:32 Naloxone Hcl 0.4 Mg/Ml Vial IV PUSH Q2M PRN Opiate Reversal Ondansetron HCl 4 mg 01/11/25 21:32 01/14/25 08:14 Ondansetron Inj 4 Mg/2 Ml Vial IV PUSH 4 mg Q4H PRN Administration Nausea And Vomiting Pantoprazole Sodium 40 mg 01/11/25 21:32 01/16/25 09:53 Pantoprazole Sodium Iv 40 Mg Vial IV PUSH 40 mg Q12HR AKSHAT Administration Phenol 1 spray 01/15/25 14:45 Phenol/Sod Pheno [place] Esquivel (*Bkc) MUCOUS MEM PRN PRN Sore Throat Prochlorperazine Edisylate 10 mg 01/14/25 11:33 01/16/25 06:06 Prochlorperazine Edisylate 10 Mg/2 Ml Vial IV PUSH 10 mg Q6H PRN Administration Nausea And Vomiting Sodium Chloride 10 ml 01/13/25 14:00 01/16/25 05:40 Central Line Flush IV PUSH 10 ml Q8HR AKSHAT Administration Sodium Chloride 10 ml 01/13/25 10:14 Central Line Flush IV PUSH PRN PRN with TPN bag changes Sodium Chloride 20 ml 01/13/25 10:14 Central Line Flush IV PUSH PRN PRN after blood draws Radiology Results: ITS Impressions Abdomen X-Ray 01/11/25 18:39 IMPRESSION: Nasogastric tube in good position and ready for immediate use. Extensive subcutaneous air, presumably perioperative. Mediastinal air is also noted. Upper GI Series 01/12/25 10:11 IMPRESSION: 1. Extraluminal leakage of contrast from the proximal stomach. Abdomen CT 01/12/25 12:08 IMPRESSION: 1. Oral contrast in left paracolic gutter secondary to leakage from the proximal stomach. Small volume of ascites. 2. Small right hydropneumothorax. Small left pleural effusion. Chest X-Ray 01/13/25 14:09 IMPRESSION: Small bilateral pleural effusions, with adjacent compressive atelectasis. Right upper extremity PICC line in good position and ready for immediate use. Labs Labs: Laboratory Results - last 24 hr 01/15/25 01/15/25 01/16/25 12:00 18:39 00:26 WBC RBC Hgb Hct MCV MCH MCHC RDW Plt Count MPV Sodium Potassium Chloride Carbon Dioxide Anion Gap BUN Creatinine Estim Creat Clear Calc Estimated GFR Glucose POC Capillary Glucose 137 H 140 H 138 H Calcium Phosphorus Triglycerides 01/16/25 01/16/25 05:16 05:57 WBC 10.8 H RBC 3.05 L Hgb 9.7 L Hct 30.4 L MCV 99.7 MCH 31.8 MCHC 31.9 L RDW 14.1 Plt Count 181 MPV 10.6 H Sodium 138 Potassium 3.4 Chloride 103 Carbon Dioxide 31 H Anion Gap 4 BUN 14 Creatinine 0.48 L Estim Creat Clear Calc 73 Estimated GFR > 60 Glucose 116 H POC Capillary Glucose 140 H Calcium 7.9 L Phosphorus 2.5 Triglycerides 121
[2025-01-16 12:28] LABS: Glucose Point of Care 136 mg/dl (65-105)
[2025-01-16] MEDS: IBUPROFEN IV 800 MG/200 ML 800 MG/200 ML BAG 400 MG IVPB ×2 (12:32→23:03)
[2025-01-16] MEDS: FAT EMULSIONS IV 20% 250 ML 20.83 ML IVPB (14:45)
[2025-01-16] MEDS: AMINO ACIDS 5%/D15W/E-LYTES/CA 1,000 ML with MULTIVITAMINS-12 INJ VIAL 1 1.25 ML, MULTI... 60 ML IV CONT (14:45)
[2025-01-16 17:47] LABS: Glucose Point of Care 142 mg/dl (65-105)
[2025-01-16] MEDS: ONDANSETRON INJ 4 MG/2 ML VIAL IV PUSH (21:34)
[2025-01-17] VITALS (10 sets, daily range): BP systolic 126–148; BP diastolic 55–98; PULSE 51–109; RESP 15–20; TEMP 35.4–37.4; O2SAT 94–98
[2025-01-17 00:18] LABS: Glucose Point of Care 160 mg/dl (65-105)
[2025-01-17] MEDS: PIPERACILLN/TAZ 3.375GM/NS50ML 3.375 GM/50 ML BAG IVPB ×4 (03:14→21:00)
[2025-01-17] MEDS: CENTRAL LINE FLUSH 10 ML IV PUSH ×3 (04:39→22:30)
[2025-01-17] MEDS: METOPROLOL TARTRATE INJ 5 MG/5 ML VIAL IV PUSH ×2 (04:39→11:58)
[2025-01-17 05:24] LABS: Basophils Absolute Auto 0.1 K/mm3 (0.0-0.1); Basophils Percent Auto 0.4 % (0.2-1.2); Eosinophils Absolute Auto 0.5 K/mm3 (0-0.3); Eosinophils Percent Auto 4.5 % (0-4.4); Hematocrit 32.6 % (37.0-47.0); Hemoglobin 10.4 g/dL (12.0-15.0); Immature Granulocyte Absolute 0.68 K/mm3 (0.00-0.031); Lymphocytes Absolute Auto 1.25 K/mm3 (0.9-3.2); Mean Corpuscular HGB Conc 31.9 g/dl (32-36); Mean Corpuscular Hemoglobin 31.5 pg (26-34); Mean Corpuscular Volume 98.8 fl (80-100); Mean Platelet Volume 10.6 fl (7.4-10.4); Monocytes Absolute Auto 1.8 K/mm3 (0.1-0.6); Monocytes Percent Auto 15.8 % (2.6-8.5); Neutrophils Absolute Auto 7.1 K/mm3 (1.3-6.7); Neutrophils Percent Auto 62.3 % (45.5-73.1); Platelet Count Result 217 k/mm3 (150-375); Red Cell Distribution Width 13.7 % (11.5-14.5); White Blood Count 11.3 K/mm3 (4.5-10.0)
[2025-01-17 05:34] LABS: Prothrombin Time 13.2 Seconds (11.1-14.7)
[2025-01-17 05:35] LABS: Partial Thromboplastin Time 26.3 Seconds (22.3-36.8)
[2025-01-17 05:43] LABS: Glucose Point of Care 145 mg/dl (65-105)
[2025-01-17 05:43] LABS: Alanine Aminotransferase 11 U/L (6-35); Albumin Level 2.6 g/dL (3.5-5.1); Alkaline Phosphatase 66 U/L (38-126); Anion Gap 3 mmol/L (4-12); Aspartate Amino Transferase 25 U/L (14-36); Bilirubin,Total 0.8 mg/dL (0.2-1.3); Blood Urea Nitrogen 14 mg/dL (7-17); Carbon Dioxide 33 mmol/L (22-30); Chloride 101 mmol/L (98-107); Estimated CRCL calculation 67 ml/min; Estimated Glomerular Filt Rate > 60; Glucose 117 mg/dL (65-110); Magnesium 1.9 mg/dL (1.6-2.3); Potassium 3.5 mmol/L (3.4-5.0); Sodium 137 mmol/L (137-145)
[2025-01-17] MEDS: KCL 40 MEQ/D5/0.9% SOD CHL 1,000 ML 40 ML IV CONT (05:45)
[2025-01-17 05:51] LABS: Transferrin 128 mg/dL (206-381)
--- NOTE | 2025-01-17 08:14 | P.PNGS_ITS ---
Progress Note: A&P Assessment and Plan (1) Gastric leak: Code(s): K91.89 - Other postprocedural complications and disorders of digestive system Status: Acute Assessment and Plan: Repaired 01/12/25 with omentoplasty and placement of drain, no signs of sepsis. Continue NPO, NG tube, Zosyn antibiotics. UGI today--will determine if NG can be removed based on these results. (2) Hiatal hernia: Code(s): K44.9 - Diaphragmatic hernia without obstruction or gangrene Status: Acute Assessment and Plan: Redo repair with partial fundoplication and fundopexy 01/11/2025 (3) History of repair of hiatal hernia: Code(s): Z98.890 - Other specified postprocedural states; Z87.19 - Personal history of other diseases of the digestive system Status: Chronic Assessment and Plan: Paraesophageal hiatal hernia repair 9 months ago, had recurrence and stricture with dysphagia prior to recent surgery 01/11/2025 (4) Protein-calorie malnutrition, moderate: Code(s): E44.0 - Moderate protein-calorie malnutrition Status: Acute Assessment and Plan: Increase TPN to 70 cc an hour. Continue supplement potassium. Subjective Subjective Date/Time Seen: 01/17/25 08:14 Post Op day: 5 Patient reports: pain is less (Major complaint is irritation from nasogastric tube, pain is minimal otherwise.), bowel movement and afebrile Exam Const: General: cooperative, comfortable and awake Orientation/consciousness: patient oriented x3 and No confusion GI: Inspection: incision (Dry and healing well, POWER output serosanguineous) GI Palp: Yes Soft to palpation and Yes Tenderness to palpation present (GI) (Upper abdomen, mostly at incisions) Urinary Catheter: Urinary Catheter: patent and draining Objective Data Vital Signs Vital Signs: Vital Signs - 24 hr 01/16/25 12:00 01/16/25 12:05 01/16/25 16:00 Temperature 37.1 C Pulse Rate 91 112 H 99 Respiratory Rate 20 Blood Pressure 147/93 H Pulse Oximetry 96 Oxygen Delivery Oxygen Flow Rate 01/16/25 16:52 01/16/25 20:00 01/16/25 20:00 Temperature 37.0 C Pulse Rate 86 86 Respiratory Rate 17 Blood Pressure 155/83 H Pulse Oximetry 95 96 Oxygen Delivery Nasal Cannula Oxygen Flow Rate 1 01/16/25 20:25 01/16/25 23:04 01/17/25 00:00 Temperature 36.2 C L 36.9 C Pulse Rate 86 95 57 L Respiratory Rate 16 16 Blood Pressure 151/92 H Pulse Oximetry 96 98 Oxygen Delivery Oxygen Flow Rate 01/17/25 00:00 01/17/25 03:55 01/17/25 04:00 Temperature 36.9 C Pulse Rate 95 102 H 76 Respiratory Rate 20 Blood Pressure 135/55 L Pulse Oximetry 95 Oxygen Delivery Oxygen Flow Rate 01/17/25 04:39 01/17/25 08:00 Temperature 35.8 C L Pulse Rate 109 H 55 L Respiratory Rate 17 Blood Pressure 147/90 H Pulse Oximetry 98 Oxygen Delivery Oxygen Flow Rate Intake/Output Intake/Output: Intake & Output 01/14/25 01/15/25 01/17/25 01/17/25 23:59 23:59 00:59 23:59 Intake Total 1999.7 3514.5 1758 1440 Output Total 327 389 1214 2590 Balance 1629.7 2909.5 -2017 -1150 Meds/Results Medications: Active Medications Generic Name Dose Route Start Last Admin Trade Name Freq PRN Reason Stop Dose Admin Benzocaine 1 lozenge 01/13/25 11:27 01/13/25 12:35 Benzocaine/Menthol (*Bkc) 18 Ea Lozenge PO 1 lozenge PRN PRN Administration Sore Throat Enoxaparin Sodium 40 mg 01/12/25 10:24 01/16/25 09:53 Enoxaparin 40 Mg/0.4 Ml Syringe SUB-Q 40 mg DAILY AKSHAT Administration Fentanyl Citrate 12.5 mcg 01/11/25 21:32 01/15/25 22:29 Fentanyl Citrate Inj (*Crx) 100 Mcg/2 Ml Vial IV PUSH 12.5 mcg Q2H PRN Administration Breakthrough Pain Rated 4-6 or NPO Fentanyl Citrate 25 mcg 01/11/25 21:32 01/16/25 21:34 Fentanyl Citrate Inj (*Crx) 100 Mcg/2 Ml Vial IV PUSH 25 mcg Q2H PRN Administration Breakthrough Pain Rated 7-10 or NPO Ibuprofen 800 mg in 200 mls @ 400 mls/hr 01/11/25 21:32 01/16/25 23:33 Caldolor 800 Mg/200 Ml IVPB Infused Q6H PRN Infusion Breakthrough Pain Rated 1-3 or NPO Piperacillin/Tazobactam/Dextrose 3.375 gm in 50 mls @ 100 mls/hr 01/13/25 09:00 01/17/25 03:44 Zosyn 3.375 Gm/Ns 50 Ml IVPB Infused Q6H AKSHAT Infusion Dextrose 1,000 mls @ 50 mls/hr 01/13/25 08:04 Dextrose 10% IV CONT .Q20H PRN if PN is interrupted Multivitamins 1.25 ml/ 1,002.5 mls @ 60 mls/hr 01/13/25 14:00 01/16/25 14:45 Multivitamins 1.25 ml/ Amino IV CONT 60 mls/hr Acids/Electrolytes/Dextrose .[id number] AKSHAT Administration Protocol Fat Emulsion Intravenous 250 mls @ 20.833 mls/hr 01/13/25 14:00 01/17/25 02:46 Lipids 20% IVPB Infused Q24H AKSHAT Infusion Potassium Chloride/Dextrose/Sod Cl 1,000 mls @ 40 mls/hr 01/14/25 06:40 01/17/25 05:45 Kcl 40 Meq/D5ns IV CONT 40 mls/hr .Q24H AKSHAT Administration Insulin Human Regular 0 units 01/13/25 18:00 01/17/25 05:44 Insulin Human Regular (*Bkc) 100 Units/Ml SUB-Q Not Given Q6HR [facility] Protocol Loperamide HCl 2 mg 01/14/25 09:47 01/14/25 10:12 Loperamide Hcl 2 Mg Capsule PO 2 mg PRN PRN Administration Diarrhea Metoprolol Tartrate 5 mg 01/11/25 22:00 01/17/25 04:39 Metoprolol Tartrate Inj 5 Mg/5 Ml Vial IV PUSH 5 mg Q6HR AKSHAT Administration Naloxone HCl 0.1 mg 01/11/25 21:32 Naloxone Hcl 0.4 Mg/Ml Vial IV PUSH Q2M PRN Opiate Reversal Ondansetron HCl 4 mg 01/11/25 21:32 01/16/25 21:34 Ondansetron Inj 4 Mg/2 Ml Vial IV PUSH 4 mg Q4H PRN Administration Nausea And Vomiting Pantoprazole Sodium 40 mg 01/11/25 21:32 01/16/25 21:34 Pantoprazole Sodium Iv 40 Mg Vial IV PUSH 40 mg Q12HR AKSHAT Administration Phenol 1 spray 01/15/25 14:45 Phenol/Sod Pheno [place] Esquivel (*Bkc) MUCOUS MEM PRN PRN Sore Throat Prochlorperazine Edisylate 10 mg 01/14/25 11:33 01/16/25 23:04 Prochlorperazine Edisylate 10 Mg/2 Ml Vial IV PUSH 10 mg Q6H PRN Administration Nausea And Vomiting Sodium Chloride 10 ml 01/13/25 14:00 01/17/25 04:39 Central Line Flush IV PUSH 10 ml Q8HR AKSHAT Administration Sodium Chloride 10 ml 01/13/25 10:14 Central Line Flush IV PUSH PRN PRN with TPN bag changes Sodium Chloride 20 ml 01/13/25 10:14 Central Line Flush IV PUSH PRN PRN after blood draws Radiology Results: ITS Impressions Abdomen X-Ray 01/11/25 18:39 IMPRESSION: Nasogastric tube in good position and ready for immediate use. Extensive subcutaneous air, presumably perioperative. Mediastinal air is also noted. Upper GI Series 01/12/25 10:11 IMPRESSION: 1. Extraluminal leakage of contrast from the proximal stomach. Abdomen CT 01/12/25 12:08 IMPRESSION: 1. Oral contrast in left paracolic gutter secondary to leakage from the proximal stomach. Small volume of ascites. 2. Small right hydropneumothorax. Small left pleural effusion. Chest X-Ray 01/13/25 14:09 IMPRESSION: Small bilateral pleural effusions, with adjacent compressive atelectasis. Right upper extremity PICC line in good position and ready for immediate use. Labs Labs: Laboratory Results - last 24 hr 01/16/25 01/16/25 01/17/25 12:03 17:45 00:12 WBC RBC Hgb Hct MCV MCH MCHC RDW Plt Count MPV Immature Gran % (Auto) Neut % (Auto) Lymph % (Auto) [place] % (Auto) Eos % (Auto) Baso % (Auto) Lymph # (Auto) [place] # (Auto) Eos # (Auto) Baso # (Auto) Abs Immat Gran (auto) Absolute Neuts (auto) Absolute Nucleated RBC Nucleated RBC % PT INR APTT Sodium Potassium Chloride Carbon Dioxide Anion Gap BUN Creatinine Estim Creat Clear Calc Estimated GFR Glucose POC Capillary Glucose 136 H 142 H 160 H Calcium Phosphorus Magnesium Transferrin Total Bilirubin AST ALT Alkaline Phosphatase Total Protein Albumin 01/17/25 01/17/25 04:41 05:40 WBC 11.3 H RBC 3.30 L Hgb 10.4 L Hct 32.6 L MCV 98.8 MCH 31.5 MCHC 31.9 L RDW 13.7 Plt Count 217 MPV 10.6 H Immature Gran % (Auto) 6.0 H Neut % (Auto) 62.3 Lymph % (Auto) 11.0 L [place] % (Auto) 15.8 H Eos % (Auto) 4.5 H Baso % (Auto) 0.4 Lymph # (Auto) 1.25 [place] # (Auto) 1.8 H Eos # (Auto) 0.5 H Baso # (Auto) 0.1 Abs Immat Gran (auto) 0.68 H Absolute Neuts (auto) 7.1 H Absolute Nucleated RBC 0.000 Nucleated RBC % 0.0 PT 13.2 INR 1.0 APTT 26.3 Sodium 137 Potassium 3.5 Chloride 101 Carbon Dioxide 33 H Anion Gap 3 L BUN 14 Creatinine 0.53 L Estim Creat Clear Calc 67 Estimated GFR > 60 Glucose 117 H POC Capillary Glucose 145 H Calcium 8.0 L Phosphorus 3.0 Magnesium 1.9 Transferrin 128 L Total Bilirubin 0.8 AST 25 ALT 11 Alkaline Phosphatase 66 Total Protein 6.0 L Albumin 2.6 L White blood cell count slightly elevated as before but does seem to have a left shift on automated differential
--- NOTE | 2025-01-17 10:06 | PCPTNOTE ---
The patient treatment was not able to be completed due to patient going for test. Will plan to continue treatment per plan of care.
[2025-01-17] MEDS: AMINO ACIDS 5%/D15W/E-LYTES/CA 1,000 ML with MULTIVITAMINS-12 INJ VIAL 1 1.25 ML, MULTI... 70 ML IV CONT (11:08)
[2025-01-17] MEDS: PANTOPRAZOLE SODIUM IV 40 MG VIAL IV PUSH (11:08)
[2025-01-17] MEDS: ENOXAPARIN 40 MG/0.4 ML SYRINGE SUB-Q (11:08)
[2025-01-17 12:06] LABS: Glucose Point of Care 132 mg/dl (65-105)
[2025-01-17] MEDS: POTASSIUM CHLORIDE 20 MEQ ER TABLET PO (13:03)
[2025-01-17] MEDS: PANTOPRAZOLE 40 MG TABLET PO (13:03)
[2025-01-17] MEDS: FAT EMULSIONS IV 20% 250 ML 20.83 ML IVPB (13:04)
[2025-01-17] MEDS: POTASSIUM CHLORIDE 10 MEQ ER TABLET 20 MEQ PO (16:59)
[2025-01-17 17:22] LABS: Glucose Point of Care 142 mg/dl (65-105)
[2025-01-18] VITALS (12 sets, daily range): BP systolic 117–151; BP diastolic 54–99; PULSE 61–116; RESP 18–20; TEMP 36.1–36.9; O2SAT 95–97
[2025-01-18 00:21] LABS: Glucose Point of Care 145 mg/dl (65-105)
[2025-01-18] MEDS: AMINO ACIDS 5%/D15W/E-LYTES/CA 1,000 ML with MULTIVITAMINS-12 INJ VIAL 1 1.25 ML, MULTI... 70 ML IV CONT ×2 (00:55→14:46)
[2025-01-18] MEDS: PIPERACILLN/TAZ 3.375GM/NS50ML 3.375 GM/50 ML BAG IVPB ×4 (02:16→21:37)
[2025-01-18] MEDS: CENTRAL LINE FLUSH 10 ML IV PUSH ×3 (05:41→21:00)
[2025-01-18] MEDS: CENTRAL LINE FLUSH 20 ML IV PUSH (05:41)
[2025-01-18 06:04] LABS: Basophils Absolute Auto 0.1 K/mm3 (0.0-0.1); Basophils Percent Auto 0.4 % (0.2-1.2); Eosinophils Absolute Auto 0.4 K/mm3 (0-0.3); Eosinophils Percent Auto 2.5 % (0-4.4); Hematocrit 34.6 % (37.0-47.0); Hemoglobin 11.3 g/dL (12.0-15.0); Immature Granulocyte Absolute 0.89 K/mm3 (0.00-0.031); Immature Granulocyte Percent A 5.5 % (0-0.5); Lymphocytes Absolute Auto 1.54 K/mm3 (0.9-3.2); Lymphocytes Percent Auto 9.4 % (18.3-44.2); Mean Corpuscular HGB Conc 32.7 g/dl (32-36); Mean Corpuscular Hemoglobin 31.8 pg (26-34); Mean Corpuscular Volume 97.5 fl (80-100); Mean Platelet Volume 10.8 fl (7.4-10.4); Monocytes Absolute Auto 2.2 K/mm3 (0.1-0.6); Monocytes Percent Auto 13.3 % (2.6-8.5); Neutrophils Absolute Auto 11.2 K/mm3 (1.3-6.7); Neutrophils Percent Auto 68.9 % (45.5-73.1); Platelet Count Result 278 k/mm3 (150-375); Red Blood Count 3.55 M/mm3 (4.2-5.4); Red Cell Distribution Width 13.7 % (11.5-14.5); White Blood Count 16.3 K/mm3 (4.5-10.0)
[2025-01-18] MEDS: IBUPROFEN IV 800 MG/200 ML 800 MG/200 ML BAG 400 MG IVPB (06:07)
[2025-01-18 06:16] LABS: Anion Gap 5 mmol/L (4-12); Blood Urea Nitrogen 18 mg/dL (7-17); Calcium 8.3 mg/dL (8.4-10.2); Carbon Dioxide 30 mmol/L (22-30); Chloride 101 mmol/L (98-107); Estimated CRCL calculation 64 ml/min; Estimated Glomerular Filt Rate > 60; Glucose 122 mg/dL (65-110); Phosphorus 2.7 mg/dL (2.5-4.5); Sodium 136 mmol/L (137-145); Triglycerides 174 mg/dL (<150)
--- NOTE | 2025-01-18 07:22 | P.PNGS_ITS ---
Progress Note: A&P Assessment and Plan (1) Gastric leak: Code(s): K91.89 - Other postprocedural complications and disorders of digestive system Status: Acute Assessment and Plan: Water-soluble upper GI yesterday showed no evidence of a leak. NG tube removed. Patient did not take much in the way of clear liquids yesterday, it appears she did not know she could. Will go ahead and put her on full liquids and encourage her to try them. Her complaints of phlegm are likely due to sinus drainage and I explained this to her. Her POWER drain shows only serous fluid and is no longer holding suction. Will discontinue the POWER drain today. Will also remove Zuniga catheter. Continue IV antibiotics (2) Hiatal hernia: Code(s): K44.9 - Diaphragmatic hernia without obstruction or gangrene Status: Acute Assessment and Plan: Redo repair with partial fundoplication and fundopexy 01/11/2025 (3) History of repair of hiatal hernia: Code(s): Z98.890 - Other specified postprocedural states; Z87.19 - Personal history of other diseases of the digestive system Status: Chronic Assessment and Plan: Paraesophageal hiatal hernia repair 9 months ago, had recurrence and stricture with dysphagia prior to recent surgery 01/11/2025 (4) Protein-calorie malnutrition, moderate: Code(s): E44.0 - Moderate protein-calorie malnutrition Status: Acute Assessment and Plan: Continue TPN at 70 cc an hour until taking adequate amounts of oral intake. Subjective Subjective Date/Time Seen: 01/18/25 07:22 Post Op day: #6 Patient reports: pain is less, diarrhea, afebrile and other (NG removed yesterday but patient complains of phlegm in her throat and difficulty coughing it up) Exam Const: General: comfortable and no acute distress Orientation/consciousness: patient oriented x3 GI: Inspection: incision (Dry and healing, POWER drain no longer holding suction, serous drainage.) GI Palp: Yes Soft to palpation, Yes Tenderness to palpation present (GI), No Guarding due to palpation present (GI) and No Rebound tendern ess present Neuro: General: patient oriented x3 and no focal motor deficits Extrem: General: no calf tenderness and no edema Psych: Affect: normal affect Insight: Good insight present (Psych) Judg ement: Good judgement present (Psych) Objective Data Vital Signs Vital Signs: Vital Signs - 24 hr 01/17/25 08:00 01/17/25 08:00 01/17/25 11:11 Temperature 35.8 C L 35.4 C L Pulse Rate 55 L 84 76 Respiratory Rate 17 15 Blood Pressure 147/90 H 126/64 Pulse Oximetry 98 94 Oxygen Delivery 01/17/25 12:00 01/17/25 16:00 01/17/25 17:15 Temperature 36.8 C Pulse Rate 92 86 64 Respiratory Rate 18 Blood Pressure 129/86 Pulse Oximetry 94 Oxygen Delivery 01/17/25 20:00 01/17/25 20:25 01/18/25 00:00 Temperature 37.4 C Pulse Rate 51 L 85 Respiratory Rate 20 Blood Pressure 148/98 H Pulse Oximetry 96 Oxygen Delivery Room Air 01/18/25 00:15 01/18/25 04:00 01/18/25 04:35 Temperature 36.8 C 36.6 C Pulse Rate 98 108 H 106 H Respiratory Rate 20 20 Blood Pressure 128/70 145/99 H Pulse Oximetry 95 95 Oxygen Delivery Intake/Output Intake/Output: Intake & Output 01/15/25 01/17/25 01/17/25 01/18/25 23:59 00:59 23:59 23:59 Intake Total 3514.5 1758 2592.5 1514.8 Output Total 605 3775 3460 630 Balance 2909.5 -2017 -867.5 884.8 Meds/Results Medications: Active Medications Generic Name Dose Route Start Last Admin Trade Name Freq PRN Reason Stop Dose Admin Benzocaine 1 lozenge 01/13/25 11:27 01/13/25 12:35 Benzocaine/Menthol (*Bkc) 18 Ea Lozenge PO 1 lozenge PRN PRN Administration Sore Throat Enoxaparin Sodium 40 mg 01/12/25 10:24 01/17/25 11:08 Enoxaparin 40 Mg/0.4 Ml Syringe SUB-Q 40 mg DAILY AKSHAT Administration Fentanyl Citrate 12.5 mcg 01/11/25 21:32 01/15/25 22:29 Fentanyl Citrate Inj (*Crx) 100 Mcg/2 Ml Vial IV PUSH 12.5 mcg Q2H PRN Administration Breakthrough Pain Rated 4-6 or NPO Fentanyl Citrate 25 mcg 01/11/25 21:32 01/16/25 21:34 Fentanyl Citrate Inj (*Crx) 100 Mcg/2 Ml Vial IV PUSH 25 mcg Q2H PRN Administration Breakthrough Pain Rated 7-10 or NPO Ibuprofen 800 mg in 200 mls @ 400 mls/hr 01/11/25 21:32 01/18/25 06:37 Caldolor 800 Mg/200 Ml IVPB Infused Q6H PRN Infusion Breakthrough Pain Rated 1-3 or NPO Piperacillin/Tazobactam/Dextrose 3.375 gm in 50 mls @ 100 mls/hr 01/13/25 09:00 01/18/25 02:16 Zosyn 3.375 Gm/Ns 50 Ml IVPB 100 mls/hr Q6H AKSHAT Administration Dextrose 1,000 mls @ 50 mls/hr 01/13/25 08:04 Dextrose 10% IV CONT .Q20H PRN if PN is interrupted Multivitamins 1.25 ml/ 1,002.5 mls @ 70 mls/hr 01/13/25 14:00 01/18/25 00:55 Multivitamins 1.25 ml/ Amino IV CONT 70 mls/hr Acids/Electrolytes/Dextrose .[id number] AKSHAT Administration Protocol Fat Emulsion Intravenous 250 mls @ 20.833 mls/hr 01/13/25 14:00 01/18/25 01:04 Lipids 20% IVPB Infused Q24H AKSHAT Infusion Insulin Human Regular 0 units 01/13/25 18:00 01/18/25 06:24 Insulin Human Regular (*Bkc) 100 Units/Ml SUB-Q Not Given Q6HR [facility] Protocol Loperamide HCl 2 mg 01/14/25 09:47 01/14/25 10:12 Loperamide Hcl 2 Mg Capsule PO 2 mg PRN PRN Administration Diarrhea Metoprolol Succinate 12.5 mg 01/18/25 09:00 Metoprolol Succinate Ext Rel 12.5 Mg Tabcr PO DAILY [facility] Naloxone HCl 0.1 mg 01/11/25 21:32 Naloxone Hcl 0.4 Mg/Ml Vial IV PUSH Q2M PRN Opiate Reversal Ondansetron HCl 4 mg 01/11/25 21:32 01/16/25 21:34 Ondansetron Inj 4 Mg/2 Ml Vial IV PUSH 4 mg Q4H PRN Administration Nausea And Vomiting Pantoprazole Sodium 40 mg 01/18/25 09:00 Pantoprazole 40 Mg Tablet PO QAM AKSHAT Phenol 1 spray 01/15/25 14:45 Phenol/Sod Pheno [place] Esquivel (*Bkc) MUCOUS MEM PRN PRN Sore Throat Potassium Chloride 20 meq 01/17/25 17:00 01/17/25 16:59 Potassium Chloride 10 Meq Er Tablet PO 20 meq BIDWM AKSHAT Administration Prochlorperazine Edisylate 10 mg 01/14/25 11:33 01/16/25 23:04 Prochlorperazine Edisylate 10 Mg/2 Ml Vial IV PUSH 10 mg Q6H PRN Administration Nausea And Vomiting Sodium Chloride 10 ml 01/13/25 14:00 01/18/25 05:41 Central Line Flush IV PUSH 10 ml Q8HR AKSHAT Administration Sodium Chloride 10 ml 01/13/25 10:14 Central Line Flush IV PUSH PRN PRN with TPN bag changes Sodium Chloride 20 ml 01/13/25 10:14 01/18/25 05:41 Central Line Flush IV PUSH 20 ml PRN PRN Administration after blood draws Radiology Results: ITS Impressions Abdomen X-Ray 01/11/25 18:39 IMPRESSION: Nasogastric tube in good position and ready for immediate use. Extensive subcutaneous air, presumably perioperative. Mediastinal air is also noted. Abdomen CT 01/12/25 12:08 IMPRESSION: 1. Oral contrast in left paracolic gutter secondary to leakage from the proximal stomach. Small volume of ascites. 2. Small right hydropneumothorax. Small left pleural effusion. Chest X-Ray 01/13/25 14:09 IMPRESSION: Small bilateral pleural effusions, with adjacent compressive atelectasis. Right upper extremity PICC line in good position and ready for immediate use. Upper GI Series 01/17/25 10:50 IMPRESSION: No evidence of extravasation, as detailed above. Labs Labs: Laboratory Results - last 24 hr 01/17/25 01/17/25 01/18/25 11:52 17:19 00:17 WBC RBC Hgb Hct MCV MCH MCHC RDW Plt Count MPV Immature Gran % (Auto) Neut % (Auto) Lymph % (Auto) [place] % (Auto) Eos % (Auto) Baso % (Auto) Lymph # (Auto) [place] # (Auto) Eos # (Auto) Baso # (Auto) Abs Immat Gran (auto) Absolute Neuts (auto) Absolute Nucleated RBC Nucleated RBC % Sodium Potassium Chloride Carbon Dioxide Anion Gap BUN Creatinine Estim Creat Clear Calc Estimated GFR Glucose POC Capillary Glucose 132 H 142 H 145 H Calcium Phosphorus Triglycerides 01/18/25 05:22 WBC 16.3 H RBC 3.55 L Hgb 11.3 L Hct 34.6 L MCV 97.5 MCH 31.8 MCHC 32.7 RDW 13.7 Plt Count 278 MPV 10.8 H Immature Gran % (Auto) 5.5 H Neut % (Auto) 68.9 Lymph % (Auto) 9.4 L [place] % (Auto) 13.3 H Eos % (Auto) 2.5 Baso % (Auto) 0.4 Lymph # (Auto) 1.54 [place] # (Auto) 2.2 H Eos # (Auto) 0.4 H Baso # (Auto) 0.1 Abs Immat Gran (auto) 0.89 H Absolute Neuts (auto) 11.2 H Absolute Nucleated RBC 0.000 Nucleated RBC % 0.0 Sodium 136 L Potassium 4.0 Chloride 101 Carbon Dioxide 30 Anion Gap 5 BUN 18 H Creatinine 0.56 L Estim Creat Clear Calc 64 Estimated GFR > 60 Glucose 122 H POC Capillary Glucose Calcium 8.3 L Phosphorus 2.7 Triglycerides 174 H
[2025-01-18] MEDS: METOPROLOL SUCCINATE EXT REL 12.5 MG TABCR PO (08:00)
[2025-01-18] MEDS: POTASSIUM CHLORIDE 10 MEQ ER TABLET 20 MEQ PO ×2 (08:00→16:51)
[2025-01-18] MEDS: ENOXAPARIN 40 MG/0.4 ML SYRINGE SUB-Q (08:00)
[2025-01-18] MEDS: PANTOPRAZOLE 40 MG TABLET PO (08:00)
[2025-01-18 08:28] LABS: Glucose Point of Care 149 mg/dl (65-105)
[2025-01-18 11:47] LABS: Glucose Point of Care 114 mg/dl (65-105)
--- NOTE | 2025-01-18 13:05 | PCNFU ---
Nutrition Follow-Up Complete: Inadequate oral intake related to altered GI function, recent surgery as evidenced by need for TPN Meet estimated protein energy needs - Goal is being met with TPN Diet advancement as medically able - Progressing. Full liquid diet Goal: Pt current nutrition is TPN Clinmix E 03/24 with lipids @ 70 ml/h. +Full liquid diet. Nutrition recommendation: No new recommendations. Diet preferences for full liquid Last recorded weight is 78.8 kg. Bowel Motility: +2 BMs 01/18/25 Labs Reviewed: Hgb 11.3, Hct 34.6, Na 136, BUN 18, Cre 0.56, Glu 122 Meds Noted: Kcl, Zofran, protonix Skin: No skin issues Additional Notes: Pt was eating some full liquid lunch tray. Still weak, appetite is poor. Does not like Ensure. Continue to monitor Monitoring TPN tolerance, diet advancement, plan of care, weights, labs Follow up Friday and Friday per policy
[2025-01-18] MEDS: FAT EMULSIONS IV 20% 250 ML 20.8 ML IVPB (14:47)
[2025-01-18 16:58] LABS: Glucose Point of Care 132 mg/dl (65-105)
[2025-01-18 23:45] LABS: Glucose Point of Care 147 mg/dl (65-105)
[2025-01-19] VITALS (10 sets, daily range): BP systolic 125–154; BP diastolic 61–86; PULSE 67–99; RESP 12–20; TEMP 36.2–37; O2SAT 94–99
[2025-01-19] MEDS: PIPERACILLN/TAZ 3.375GM/NS50ML 3.375 GM/50 ML BAG IVPB ×4 (02:50→20:59)
[2025-01-19] MEDS: CENTRAL LINE FLUSH 10 ML IV PUSH ×3 (05:30→21:02)
[2025-01-19] MEDS: AMINO ACIDS 5%/D15W/E-LYTES/CA 1,000 ML with MULTIVITAMINS-12 INJ VIAL 1 1.25 ML, MULTI... 70 ML IV CONT (06:10)
[2025-01-19 06:21] LABS: Basophils Absolute Auto 0.1 K/mm3 (0.0-0.1); Basophils Percent Auto 0.4 % (0.2-1.2); Eosinophils Absolute Auto 0.6 K/mm3 (0-0.3); Eosinophils Percent Auto 3.5 % (0-4.4); Hematocrit 34.7 % (37.0-47.0); Hemoglobin 11.2 g/dL (12.0-15.0); Immature Granulocyte Absolute 0.75 K/mm3 (0.00-0.031); Immature Granulocyte Percent A 4.7 % (0-0.5); Lymphocytes Absolute Auto 1.26 K/mm3 (0.9-3.2); Lymphocytes Percent Auto 7.8 % (18.3-44.2); Mean Corpuscular HGB Conc 32.3 g/dl (32-36); Mean Corpuscular Volume 96.1 fl (80-100); Mean Platelet Volume 10.5 fl (7.4-10.4); Monocytes Absolute Auto 1.9 K/mm3 (0.1-0.6); Monocytes Percent Auto 11.9 % (2.6-8.5); Neutrophils Absolute Auto 11.5 K/mm3 (1.3-6.7); Neutrophils Percent Auto 71.7 % (45.5-73.1); Platelet Count Result 336 k/mm3 (150-375); Red Blood Count 3.61 M/mm3 (4.2-5.4); Red Cell Distribution Width 13.6 % (11.5-14.5); White Blood Count 16.1 K/mm3 (4.5-10.0)
[2025-01-19] MEDS: IBUPROFEN IV 800 MG/200 ML 800 MG/200 ML BAG 400 MG IVPB (06:21)
[2025-01-19 06:30] LABS: Anion Gap 6 mmol/L (4-12); Blood Urea Nitrogen 17 mg/dL (7-17); Calcium 8.3 mg/dL (8.4-10.2); Carbon Dioxide 28 mmol/L (22-30); Chloride 100 mmol/L (98-107); Estimated CRCL calculation 59 ml/min; Estimated Glomerular Filt Rate > 60; Glucose 132 mg/dL (65-110); Phosphorus 3.1 mg/dL (2.5-4.5); Potassium 3.9 mmol/L (3.4-5.0); Sodium 134 mmol/L (137-145)
[2025-01-19 06:37] LABS: Glucose Point of Care 150 mg/dl (65-105)
[2025-01-19] MEDS: PANTOPRAZOLE 40 MG TABLET PO (09:09)
[2025-01-19] MEDS: METOPROLOL SUCCINATE EXT REL 12.5 MG TABCR PO (09:09)
[2025-01-19] MEDS: POTASSIUM CHLORIDE 10 MEQ ER TABLET 20 MEQ PO (09:10)
--- NOTE | 2025-01-19 11:35 | P.PNGS_ITS ---
Progress Note: A&P Assessment and Plan (1) Gastric leak: Code(s): K91.89 - Other postprocedural complications and disorders of digestive system Status: Acute Assessment and Plan: Patient slowly improving. Will advance her to a soft minced/moist diet today. Stop the TPN and lipids. Will switch her oral potassium to the powder rather than pills. Continue gauze dressing changes where POWER drain was located. Increase activity today and ambulated in the halls again, continue PT/OT. Continue IV antibiotics for now. Could consider discharging the patient in the next 1-2 days if she continues to improve. Will repeat labs again tomorrow. (2) Hiatal hernia: Code(s): K44.9 - Diaphragmatic hernia without obstruction or gangrene Status: Acute Assessment and Plan: Redo repair with partial fundoplication and fundopexy 01/11/2025 (3) History of repair of hiatal hernia: Code(s): Z98.890 - Other specified postprocedural states; Z87.19 - Personal history of other diseases of the digestive system Status: Chronic Assessment and Plan: Paraesophageal hiatal hernia repair 9 months ago, had recurrence and stricture with dysphagia prior to recent surgery 01/11/2025 (4) Protein-calorie malnutrition, moderate: Code(s): E44.0 - Moderate protein-calorie malnutrition Status: Acute Assessment and Plan: Will stop TPN and encouraged more oral intake. She was eating less of the full liquids due to taste and is eager to try an increased diet. Plan I have discussed the patient's case and plan of care with Dr. Hernandez. Subjective Subjective Date/Time Seen: 01/19/25 11:35 Patient reports: flatus, bowel movement (still loose, x 2 today) and afebrile Interval history: Patient doing well today. No complaints of cough or congestion. She denies any abdominal pain or nausea. She did not tolerate the oral potassium pills yesterday or today. She typically has issues with swallowing larger pills and tried to dissolve it in juice today, which quickly she vomited up. She is otherwise tolerating full liquids. Denies any dysphagia or regurgitation. She is tolerating activity with therapy and walked in the halls yesterday. She has been up to the chair today and did well with this. Review of Systems Review of Systems: All systems reviewed & are unremarkable except as noted in HPI and below Exam Const: General: comfortable and no acute distress Resp: Effort & Inspection: normal respiratory effort Auscultation: clear to auscultation bilaterally Cardio: Rate: regular rate Rhythm: regular rhythm GI: Inspection: non-distended, incision (incisions dry and glue intact) and other (Gauze dressing changed in LLQ where POWER drain was and no redness or drainage) GI Palp: Yes Soft to palpation, No Tenderness to palpation present (GI) and No Guarding due to palpation present (GI) Auscultation: normal bowel sounds Neuro: General: moves all extremities and no focal motor deficits Extrem: General: no calf tenderness and no edema Psych: Mental Status: mental status grossly normal Insight: Good insight present (Psych) Objective Data Vital Signs Vital Signs: Vital Signs - 24 hr 01/18/25 12:00 01/18/25 13:42 01/18/25 16:00 Temperature 97.7 F Pulse Rate 91 68 86 Respiratory Rate 18 Blood Pressure 123/61 Pulse Oximetry 97 Oxygen Delivery 01/18/25 18:00 01/18/25 20:00 01/18/25 20:00 Temperature 97.6 F Pulse Rate 61 116 H Respiratory Rate 18 Blood Pressure 117/54 L Pulse Oximetry 97 Oxygen Delivery Room Air 01/18/25 20:15 01/18/25 23:20 01/19/25 00:00 Temperature 98.4 F 97.6 F Pulse Rate 103 H 96 99 Respiratory Rate 20 20 Blood Pressure 139/79 148/67 H Pulse Oximetry 97 96 Oxygen Delivery 01/19/25 04:00 01/19/25 04:15 01/19/25 08:00 Temperature 97.1 F L 97.1 F L Pulse Rate 88 94 67 Respiratory Rate 20 16 Blood Pressure 154/86 H 154/83 H Pulse Oximetry 97 99 Oxygen Delivery 01/19/25 09:09 Temperature Pulse Rate 67 Respiratory Rate Blood Pressure Pulse Oximetry Oxygen Delivery Intake/Output Intake/Output: Intake & Output 01/17/25 01/17/25 01/18/25 01/19/25 00:59 23:59 23:59 23:59 Intake Total 1758 2592.5 3674.8 1332.5 Output Total 3775 3460 1830 875 Balance -2016 -867.5 1844.8 457.5 Meds/Results Medications: Active Medications Generic Name Dose Route Start Last Admin Trade Name Freq PRN Reason Stop Dose Admin Acetaminophen 500 mg 01/19/25 07:32 Acetaminophen 500 Mg Tablet PO Q6H PRN Pain Rated 1-3 Benzocaine 1 lozenge 01/13/25 11:27 01/13/25 12:35 Benzocaine/Menthol (*Bkc) 18 Ea Lozenge PO 1 lozenge PRN PRN Administration Sore Throat Enoxaparin Sodium 40 mg 01/12/25 10:24 01/18/25 08:00 Enoxaparin 40 Mg/0.4 Ml Syringe SUB-Q 40 mg DAILY AKSHAT Administration Fentanyl Citrate 12.5 mcg 01/11/25 21:32 01/15/25 22:29 Fentanyl Citrate Inj (*Crx) 100 Mcg/2 Ml Vial IV PUSH 12.5 mcg Q2H PRN Administration Breakthrough Pain Rated 4-6 or NPO Fentanyl Citrate 25 mcg 01/11/25 21:32 01/16/25 21:34 Fentanyl Citrate Inj (*Crx) 100 Mcg/2 Ml Vial IV PUSH 25 mcg Q2H PRN Administration Breakthrough Pain Rated 7-10 or NPO Ibuprofen 800 mg in 200 mls @ 400 mls/hr 01/11/25 21:32 01/19/25 06:21 Caldolor 800 Mg/200 Ml IVPB 400 mls/hr Q6H PRN Administration Breakthrough Pain Rated 1-3 or NPO Piperacillin/Tazobactam/Dextrose 3.375 gm in 50 mls @ 100 mls/hr 01/13/25 09:00 01/19/25 09:07 Zosyn 3.375 Gm/Ns 50 Ml IVPB 100 mls/hr Q6H AKSHAT Administration Dextrose 1,000 mls @ 50 mls/hr 01/13/25 08:04 Dextrose 10% IV CONT .Q20H PRN if PN is interrupted Multivitamins 1.25 ml/ 1,002.5 mls @ 70 mls/hr 01/13/25 14:00 01/19/25 06:10 Multivitamins 1.25 ml/ Amino IV CONT 70 mls/hr Acids/Electrolytes/Dextrose .[id number] AKSHAT Administration Protocol Fat Emulsion Intravenous 250 mls @ 20.833 mls/hr 01/13/25 14:00 01/18/25 14:47 Lipids 20% IVPB 20.8 mls/hr Q24H AKSHAT Administration Insulin Human Regular 0 units 01/13/25 18:00 01/19/25 07:00 Insulin Human Regular (*Bkc) 100 Units/Ml SUB-Q Not Given Q6HR [facility] Protocol Loperamide HCl 2 mg 01/14/25 09:47 01/14/25 10:12 Loperamide Hcl 2 Mg Capsule PO 2 mg PRN PRN Administration Diarrhea Metoprolol Succinate 12.5 mg 01/18/25 09:00 01/19/25 09:09 Metoprolol Succinate Ext Rel 12.5 Mg Tabcr PO 12.5 mg DAILY AKSHAT Administration Miscellaneous Information 1 each 01/19/25 00:01 Clinimix Needs To Be Renewed Or It Will Automatically Discontinue. XX 02/18/25 00:00 CLARIFY AKSHAT Naloxone HCl 0.1 mg 01/11/25 21:32 Naloxone Hcl 0.4 Mg/Ml Vial IV PUSH Q2M PRN Opiate Reversal Ondansetron HCl 4 mg 01/11/25 21:32 01/16/25 21:34 Ondansetron Inj 4 Mg/2 Ml Vial IV PUSH 4 mg Q4H PRN Administration Nausea And Vomiting Oxycodone/Acetaminophen 0.5 tablet 01/19/25 07:32 Oxycodone/Acetaminophen (*Crx) 5-325 Mg Tablet PO Q4H PRN Pain Rated 4-6 Pantoprazole Sodium 40 mg 01/18/25 09:00 01/19/25 09:09 Pantoprazole 40 Mg Tablet PO 40 mg QAM AKSHAT Administration Phenol 1 spray 01/15/25 14:45 Phenol/Sod Pheno [place]ivel (*Bkc) MUCOUS MEM PRN PRN Sore Throat Potassium Chloride 20 meq 01/17/25 17:00 01/19/25 09:10 Potassium Chloride 10 Meq Er Tablet PO 20 meq BIDWM AKSHAT Administration Prochlorperazine Edisylate 10 mg 01/14/25 11:33 01/16/25 23:04 Prochlorperazine Edisylate 10 Mg/2 Ml Vial IV PUSH 10 mg Q6H PRN Administration Nausea And Vomiting Sodium Chloride 10 ml 01/13/25 14:00 01/19/25 05:30 Central Line Flush IV PUSH 10 ml Q8HR AKSHAT Administration Sodium Chloride 10 ml 01/13/25 10:14 Central Line Flush IV PUSH PRN PRN with TPN bag changes Sodium Chloride 20 ml 01/13/25 10:14 01/18/25 05:41 Central Line Flush IV PUSH 20 ml PRN PRN Administration after blood draws Radiology Results: ITS Impressions Abdomen X-Ray 01/11/25 18:39 IMPRESSION: Nasogastric tube in good position and ready for immediate use. Extensive subcutaneous air, presumably perioperative. Mediastinal air is also noted. Abdomen CT 01/12/25 12:08 IMPRESSION: 1. Oral contrast in left paracolic gutter secondary to leakage from the proximal stomach. Small volume of ascites. 2. Small right hydropneumothorax. Small left pleural effusion. Chest X-Ray 01/13/25 14:09 IMPRESSION: Small bilateral pleural effusions, with adjacent compressive atelectasis. Right upper extremity PICC line in good position and ready for immediate use. Upper GI Series 01/17/25 10:50 IMPRESSION: No evidence of extravasation, as detailed above. Labs Labs: Laboratory Results - last 24 hr 01/18/25 01/18/25 01/18/25 11:45 16:43 23:24 WBC RBC Hgb Hct MCV MCH MCHC RDW Plt Count MPV Immature Gran % (Auto) Neut % (Auto) Lymph % (Auto) [place] % (Auto) Eos % (Auto) Baso % (Auto) Lymph # (Auto) [place] # (Auto) Eos # (Auto) Baso # (Auto) Abs Immat Gran (auto) Absolute Neuts (auto) Absolute Nucleated RBC Nucleated RBC % Sodium Potassium Chloride Carbon Dioxide Anion Gap BUN Creatinine Estim Creat Clear Calc Estimated GFR Glucose POC Capillary Glucose 114 H 132 H 147 H Calcium Phosphorus 01/19/25 01/19/25 06:10 06:34 WBC 16.1 H RBC 3.61 L Hgb 11.2 L Hct 34.7 L MCV 96.1 MCH 31.0 MCHC 32.3 RDW 13.6 Plt Count 336 MPV 10.5 H Immature Gran % (Auto) 4.7 H Neut % (Auto) 71.7 Lymph % (Auto) 7.8 L [place] % (Auto) 11.9 H Eos % (Auto) 3.5 Baso % (Auto) 0.4 Lymph # (Auto) 1.26 [place] # (Auto) 1.9 H Eos # (Auto) 0.6 H Baso # (Auto) 0.1 Abs Immat Gran (auto) 0.75 H Absolute Neuts (auto) 11.5 H Absolute Nucleated RBC 0.000 Nucleated RBC % 0.0 Sodium 134 L Potassium 3.9 Chloride 100 Carbon Dioxide 28 Anion Gap 6 BUN 17 Creatinine 0.59 L Estim Creat Clear Calc 59 Estimated GFR > 60 Glucose 132 H POC Capillary Glucose 150 H Calcium 8.3 L Phosphorus 3.1
[2025-01-19 11:52] LABS: Glucose Point of Care 130 mg/dl (65-105)
[2025-01-19] MEDS: POTASSIUM CHLORIDE 20 MEQ PACKET (FOR LIQUID) PO (15:52)
[2025-01-19 23:42] LABS: Glucose Point of Care 97 mg/dl (65-105)
[2025-01-20] MEDS: PIPERACILLN/TAZ 3.375GM/NS50ML 3.375 GM/50 ML BAG IVPB ×2 (03:55→08:57)
[2025-01-20 04:00] VITALS: BP 128/53; PULSE 74; RESP 14; TEMP 36.4; O2SAT 95
[2025-01-20] MEDS: CENTRAL LINE FLUSH 10 ML IV PUSH (05:18)
[2025-01-20] MEDS: oxyCODONE/ACETAMINOPHEN (*CRX) 5-325 MG TABLET 0.5 TABLET PO (05:18)
[2025-01-20 05:34] LABS: Glucose Point of Care 98 mg/dl (65-105)
[2025-01-20 06:55] LABS: Hematocrit 33.7 % (37.0-47.0); Hemoglobin 10.9 g/dL (12.0-15.0); Mean Corpuscular HGB Conc 32.3 g/dl (32-36); Mean Corpuscular Hemoglobin 31.1 pg (26-34); Mean Corpuscular Volume 96.3 fl (80-100); Mean Platelet Volume 10.6 fl (7.4-10.4); Platelet Count Result 410 k/mm3 (150-375); Red Cell Distribution Width 13.7 % (11.5-14.5); White Blood Count 15.6 K/mm3 (4.5-10.0)
[2025-01-20 07:11] LABS: Anion Gap 9 mmol/L (4-12); Blood Urea Nitrogen 18 mg/dL (7-17); Calcium 8.6 mg/dL (8.4-10.2); Carbon Dioxide 25 mmol/L (22-30); Chloride 100 mmol/L (98-107); Estimated CRCL calculation 49 ml/min; Estimated Glomerular Filt Rate > 60; Glucose 88 mg/dL (65-110); Potassium 4.1 mmol/L (3.4-5.0); Sodium 134 mmol/L (137-145)
[2025-01-20 07:59] VITALS: BP 133/64; PULSE 74; RESP 18; TEMP 36.4; O2SAT 95
[2025-01-20 08:58] VITALS: PULSE 76
[2025-01-20] MEDS: ENOXAPARIN 40 MG/0.4 ML SYRINGE SUB-Q (08:58)
[2025-01-20] MEDS: PANTOPRAZOLE 40 MG TABLET PO (08:58)
[2025-01-20] MEDS: METOPROLOL SUCCINATE EXT REL 12.5 MG TABCR PO (08:58)
[2025-01-20 11:54] LABS: Glucose Point of Care 89 mg/dl (65-105)
[2025-01-20 11:56] VITALS: BP 143/67; PULSE 74; RESP 18; TEMP 36.4; O2SAT 98
--- NOTE | 2025-01-20 12:35 | P.DS_ITS ---
DS: Admitting Diagnosis Discharge Date 01/20/2025 Admitting Diagnosis recurrent hiatal hernia dysphagia history hiatal hernia repair DS: Discharge Diagnosis Discharge Diagnosis (1) Hiatal hernia: Code(s): K44.9 - Diaphragmatic hernia without obstruction or gangrene Status: Acute (2) Gastric leak: Code(s): K91.89 - Other postprocedural complications and disorders of digestive system Status: Acute (3) Diarrhea: Qualifiers: Diarrhea type: unspecified type Qualified Code(s): R19.7 - Diarrhea, unspecified Code(s): R19.7 - Diarrhea, unspecified Status: Acute (4) H/O esophageal hernia repair: Code(s): Z98.890 - Other specified postprocedural states; Z87.19 - Personal history of other diseases of the digestive system Status: Acute (5) Protein-calorie malnutrition, moderate: Code(s): E44.0 - Moderate protein-calorie malnutrition Status: Acute DS: Summary Hospital Course Reason for hospitalization: Patient is an 85-year-old woman who underwent laparoscopic repair of a large paraesophageal hiatal hernia with intrathoracic stomach in 2023. She has been troubled with dysphagia and troubled with eating which has not responded to esophageal dilation. She has had extensive testing which has shown a small recurrent paraesophageal hiatal hernia and poor esophageal motility. Esophageal motility studies suggest stricture at the site of the previous repair. After lengthy discussion and workup, patient presented now for robotic laparoscopic repair recurrent paraesophageal hiatal hernia with dysphagia. Hospital Course: She underwent repair recurrent hiatal hernia with partial fundoplication on 01/11/[address] Hernandez. The procedure was difficult due to significant amount of anterior abdominal wall omental adhesions and adhesions of the previous fundoplication. The difficult adhesiolysis lead to a few holes in the stomach that were repaired. She was transferred to the medical floor with an NG tube to wall suction postoperatively. The night of surgery she had a lot of abdominal pain and retching. Upper GI contrast study was ordered postop day 1 and showed a gastric leak, therefore she was taken back to surgery on 01/12/25 and underwent ro botic assisted laparoscopic repair gastric perforation, omentoplasty. She had placement of a POWER drain. NG tube decompression and bowel rest was continued postoperatively. She was started on broad-spectrum IV antibiotics. She also had a PICC line ordered for TPN while on bowel rest in the postoperative period. She developed diarrhea following surgery, which was treated with Imodium. Serial labs were followed and she had hypokalemia, which was treated with potassium supplementation. Her hemoglobin did drop slightly following surgery down to 9.5, but remained stable and was up to 11 prior to discharge. She had leukocytosis following surgery, which is not unexpected. Her white blood cell count did fluctuate, but was trending down the last few days prior to discharge. She has been afebrile and vital signs stable. She had another water-soluble upper GI series on 01/17/2025 that showed no evidence of extravasation from the stomach. Her NG tube was subsequently removed and she was started on a liquid diet. Her diet was slowly advanced over a few days up to a soft, minced/moist diet. Her POWER drain was removed. She had no issues with dysphagia or regurgitation. She did have difficulty swallowing the potassium pills, which were changed powder. Otherwise, she was tolerating a diet and her bowels were moving prior to discharge. PT and OT were consulted postoperatively and worked with the patient to regain strength. She was tolerating activity and ambulating with a walker in the halls prior to discharge. She was felt to be stable to discharge home with her daughter. She plans to stay with her daughter on discharge. She is stable for discharge today after discussing with Dr. Hernandez. He recommends stopping antibiotics on discharge and follow-up in 1 week. Status at Discharge Functional status at discharge: independent ambulation Overall status at discharge: patient is progressing back to baseline Time Spent with Patient Time attestation: Total time spent providing and/or coordinating discharge services: Time spent: Less than 30 minutes Exam Const: General: comfortable and no acute distress Resp: Effort & Inspection: normal respiratory effort Auscultation: clear to auscultation bilaterally Cardio: Rate: regular rate Rhythm: regular rhythm GI: Inspection: non-distended, incision (incisions dry and intact) and other (LLQ POWER Drain site with dry gauze in place) GI Palp: Yes Soft to palpation, No Tenderness to palpation present (GI), No Guarding due to palpation present (GI) and No Rebound tenderness present Auscultation: normal bowel sounds Neuro: General: moves all extremities and no focal motor deficits Extrem: General: no calf tenderness and no edema Psych: Mental Status: mental status grossly normal Insight: Good insight present (Psych) DS: Data Data Completed and Pending Labs on day of discharge: Labs from last 24 hours 01/20/25 01/20/25 01/20/25 11:44 06:40 05:31 WBC 15.6 H RBC 3.50 L Hgb 10.9 L Hct 33.7 L MCV 96.3 MCH 31.1 MCHC 32.3 RDW 13.7 Plt Count 410 H MPV 10.6 H Sodium 134 L Potassium 4.1 Chloride 100 Carbon Dioxide 25 Anion Gap 9 BUN 18 H Creatinine 0.73 Estim Creat Clear Calc 49 Estimated GFR > 60 Glucose 88 POC Capillary Glucose 89 98 Calcium 8.6 01/19/25 23:39 WBC RBC Hgb Hct MCV MCH MCHC RDW Plt Count MPV Sodium Potassium Chloride Carbon Dioxide Anion Gap BUN Creatinine Estim Creat Clear Calc Estimated GFR Glucose POC Capillary Glucose 97 Calcium Procedures/Treatments: Procedures Operation Date: 01/11/25 12:00 Actual Procedure Side Surgeon p Robotic Repair Recurrent Hiatal Hernia with Fundoplication Not Applicable Ibrahima Hernandez MD Operation Date: 01/12/25 14:15 Actual Procedure Side Surgeon p Robotic Repair Gastric Leak Not Applicable Ibrahima Hernandez MD Imaging Radiologist's impression: ITS Impressions Abdomen X-Ray 01/11/25 18:39 IMPRESSION: Nasogastric tube in good position and ready for immediate use. Extensive subcutaneous air, presumably perioperative. Mediastinal air is also noted. Upper GI Series 01/12/25 10:11 IMPRESSION: 1. Extraluminal leakage of contrast from the proximal stomach. Abdomen CT 01/12/25 12:08 IMPRESSION: 1. Oral contrast in left paracolic gutter secondary to leakage from the proximal stomach. Small volume of ascites. 2. Small right hydropneumothorax. Small left pleural effusion. Chest X-Ray 01/13/25 14:09 IMPRESSION: Small bilateral pleural effusions, with adjacent compressive atelectasis. Right upper extremity PICC line in good position and ready for immediate use. Upper GI Series 01/17/25 10:50 IMPRESSION: No evidence of extravasation, as detailed above. Discharge Plan Discharge Attending physician on discharge: Ibrahima Hernandez Discharging Clinician: Julia Hobbs Anticipated Discharge Date/Time: 01/20/25 12:43 Patient Disposition: Home, Self-Care Activity: may shower and no driving Diet: other - see discharge instructions Wound Care Instructions: other - see discharge instructions Discharge Instructions: * You may wash over incisions daily with soap and water. The wound where your drain was removed in the left lower abdomen should continue to have a gauze dressing on it until Friday (01/22/25) and then you may remove it and leave this open to air. You can wash over this incision and should just change the gauze dressing if it is soiled or you shower. * No lifting more than 10-15 lbs for 2-3 weeks * Walk at least three times per day. Stairs are okay. * Follow-up with Dr. Hernandez as scheduled next week * Continue a minced/soft diet until you see Dr. Hernandez in the office. Avoid difficult to chew/swallow foods. * You may take Tylenol or Ibuprofen as needed for pain. If you have any issues with pain control, please call the surgeon's office. * Your PICC line was removed prior to discharge. Do Not Change Dressing For 24 Hours. Dressing Change Due 01/21/25. Change Dressing and Clean Site With Soap and Water Every Day Until Site is Healed. Notify Provider For Redness, Swelling or Drainage at Site, Fever or Chills. Patient Instructions: Antibiotic Form Patient Language: Arabic Stand Alone Forms: General Discharge Information Follow-up/Referrals: Ibrahima Hernandez MD [Physician] - Keep Reg. Scheduled Appt. Discharge Medications: Continued metoprolol succinate 25 mg tablet extended release 24 hr 12.5 mg PO DAILY Qty: 45 2RF Patient Comments: qam simvastatin 10 mg tablet 10 mg PO HS esomeprazole magnesium [Nexium] 20 mg capsule,delayed release(DR/EC) 20 mg PO DAILY Date of admission: 01/12/25 14:56 Primary Care Provider: Aruna Santiago Admitting Provider: Ibrahima Hernandez Attending physician on admission: Ibrahima Hernandez Condition: Stable Quality VTE Prophylaxis VTE prophylaxis: pharmacologic ordered
[2025-01-20] MEDS: NEOMYCIN/POLYMYXIN/BACITRACIN OINTMENT PACKET 1 PACKET (17:50)
== END 2025-01-20 15:25 | disposition home or self-care (01) | DRG 327 ==
LOC: ANHSURGERY 13:21 → ANH3MEDSUR 13:22
PROVIDERS: Admitting Provider Surgery; PCP Clinical Nurse Specialist; Visit Provider Nurse Practitioner Family
PROC: 0DV44ZZ Restriction of Esophagogastric Junction, Percutaneous Endoscopic Approach (ICD-10-PCS; CPT 43280; principal; 2025-01-11 12:00)
DX: K44.0 Diaphragmatic hernia with obstruction, without gangrene (principal); E44.0 Moderate protein-calorie malnutrition; K91.89 Other postprocedural complications and disorders of digestive system; K91.71 Accidental puncture and laceration of a digestive system organ or structure during a digestive system procedure; K66.0 Peritoneal adhesions (postprocedural) (postinfection); Y83.8 Other surgical procedures as the cause of abnormal reaction of the patient, or of later complication, without mention of misadventure at the time of the procedure; R13.10 Dysphagia, unspecified; Z98.890 Other specified postprocedural states; Z87.19 Personal history of other diseases of the digestive system; E87.6 Hypokalemia; E66.9 Obesity, unspecified; Z68.27 Body mass index [BMI] 27.0-27.9, adult
CPT/HCPCS: 36415; 36569; 71045; 74150; 74240; 80048; 80053; 82948; 83735; 84100; 84466; 84478; 85025; 85027; 85610; 85730; 93005; 97110; 97116; 97161; 97166; 97530; 97535; A9270; C1751; G0378; J0330; J0690; J0780; J1100; J1171; J1650; J1741; J1885; J2003; J2371; J2405; J2470; J2543; J2704; J3010; J3480; J7120; Q9968

== ENCOUNTER 2025-01-27 11:02 | Outpatient (CLI) | payer MEDICARE, SELFPAY ==
[2025-01-27 11:28] LABS: Basophils Absolute Auto 0.1 K/mm3 (0.0-0.1); Basophils Percent Auto 0.8 % (0.2-1.2); Eosinophils Absolute Auto 0.2 K/mm3 (0-0.3); Eosinophils Percent Auto 2.1 % (0-4.4); Hematocrit 36.6 % (37.0-47.0); Hemoglobin 11.6 g/dL (12.0-15.0); Immature Granulocyte Absolute 0.15 K/mm3 (0.00-0.031); Immature Granulocyte Percent A 1.4 % (0-0.5); Lymphocytes Absolute Auto 1.36 K/mm3 (0.9-3.2); Lymphocytes Percent Auto 12.5 % (18.3-44.2); Mean Corpuscular HGB Conc 31.7 g/dl (32-36); Mean Corpuscular Volume 97.9 fl (80-100); Mean Platelet Volume 10.2 fl (7.4-10.4); Monocytes Absolute Auto 0.9 K/mm3 (0.1-0.6); Monocytes Percent Auto 8.2 % (2.6-8.5); Neutrophils Absolute Auto 8.2 K/mm3 (1.3-6.7); Platelet Count Result 600 k/mm3 (150-375); Red Blood Count 3.74 M/mm3 (4.2-5.4); Red Cell Distribution Width 13.4 % (11.5-14.5); White Blood Count 10.9 K/mm3 (4.5-10.0)
[2025-01-27 11:47] LABS: Anion Gap 11 mmol/L (4-12); Blood Urea Nitrogen 12 mg/dL (7-17); Calcium 9.2 mg/dL (8.4-10.2); Carbon Dioxide 27 mmol/L (22-30); Chloride 102 mmol/L (98-107); Estimated Glomerular Filt Rate > 60; Glucose 109 mg/dL (65-110); Potassium 4.3 mmol/L (3.4-5.0); Sodium 140 mmol/L (137-145)
--- OUTSIDE RECORDS SUMMARY | 2025-01-27 12:03 | XMS_ITS | Clinical Summary ---
Author Organization [facility] Address [address] [place] [address] Care Team Providers Care Access Consultant Name Role Phone Geovanni Ellis DO Primary Care Provider [phone]- [phone] Allergies No known active allergies Medications meloxicam [...] Noted Date Diagnosed Date Pulmonary nodule 09/23/2024 Encounters Date Type Department Care Team Description 01/11/2025 Orders Only [facility] [place] Information Management [address] [place] [id number] Scanning, Provider from Last 3 Months Immunizations Immunization Administration Dates Next Due Influenza, [...] Comments Blood Pressure 133/85 09/24/2024 9:29 AM TRANSPORTATION SUPERINTENDENT Pulse 89 09/24/2024 9:29 AM TRANSPORTATION SUPERINTENDENT Temperature 36.1 C (97 F) 09/24/2024 9:29 AM TRANSPORTATION SUPERINTENDENT Respiratory Rate 16 09/24/2024 9:29 AM TRANSPORTATION SUPERINTENDENT Oxygen Saturation 98% 09/24/2024 9:29 AM TRANSPORTATION SUPERINTENDENT Inhaled Oxygen Concentration - - Weight 72.4 kg (159 lb 9.6 oz) 09/24/2024 9:29 A M TRANSPORTATION SUPERINTENDENT Height 165.1 cm (5' 5 ) 09/24/2024 9:29 AM TRANSPORTATION SUPERINTENDENT Body Mass Index 26.56 09/24/2024 9:29 AM TRANSPORTATION SUPERINTENDENT Plan of Treatment Health Maintenance Due Date Last Done Comments Depression Screening 1940 Fall Risk Assessment 1940 DTaP/Tdap/Td Vaccine (1 - Tdap) 1950 Hepatitis B Screening 1958 Well Visit 65+ 2004 Zoster Vaccine (2 of 3) 09/09/2014 07/15/2014 Pneumococcal vaccine 65+ (2 of 2 - PCV) 09/28/2021 09/28/2020 Covid-19 Vaccine (2023-2 5 season) 2024 09/19/2023, 10/09/2022, 10/29/2021, Additional history exists Influenza Vaccine Completed 08/11/2024, , 08/14/2022, Additional history exists Procedures Procedure Name Priority Date/Time Associated Diagnosis Comments SCAN - RADIOLOGY/IMAGING 01/11/2025 from Last 3 Months Results * SCAN - RADIOLOGY/IMAGING (01/11/2025) Anatomical Region Laterality Modality Other us Provider Scanning Final Result from Last 3 Months Insurance [facility] [employer] [facility] ADVANTRA Care Teams Access Consultant Relationship Specialty Start Date End Date Geovanni Ellis DO PCP - General 03/27/18
--- OUTSIDE RECORDS SUMMARY | 2025-01-27 12:03 | XMS_ITS | Clinical Summary ---
Author Organization [facility] Address [address] [place] [id number] Care Team Providers Care Innersole Fitter Name Role Phone Unavailable Primary Care Provider [...] Documents on File Type Date Recorded Patient Podopediatrician Expl anation Advance Directives and Living Will 05/03/2017 12:00 AM ADVANCED DIRECTIVES
--- OUTSIDE RECORDS SUMMARY | 2025-01-27 12:03 | XMS_ITS | Referral Summary ---
Author Organization [facility] Address [address] [place] [address] Care Team Providers Care Photogravure Press Operator Name Role Phone Geovanni Ellis DO Primary Care Provider [phone]- [phone] Encounters Date Type Department Care Team Description 01/11/2025 Orders Only [facility] [place] Health Information Management [address] [place] [id number] Scanning, Provider from Last 3 Months Allergies No known active allergies Medications meloxicam [...] Comments Blood Pressure 133/85 09/24/2024 9:29 AM VACUUM REPAIRER Pulse 89 09/24/2024 9:29 AM VACUUM REPAIRER Temperature 36.1 C (97 F) 09/24/2024 9:29 AM VACUUM REPAIRER Respiratory Rate 16 09/24/2024 9:29 AM VACUUM REPAIRER Oxygen Saturation 98% 09/24/2024 9:29 AM VACUUM REPAIRER Inhaled Oxygen Concentration - - Weight 72.4 kg (159 lb 9.6 oz) 09/24/2024 9:29 A M VACUUM REPAIRER Height 165.1 cm (5' 5 ) 09/24/2024 9:29 AM VACUUM REPAIRER Body Mass Index 26.56 09/24/2024 9:29 AM VACUUM REPAIRER Plan of Treatment Not on file Procedures Procedure Name Priority Date/Time Associated Diagnosis Comments SCAN - RADIOLOGY/IMAGING 01/11/2025 from Last 3 Months Results * SCAN - RADIOLOGY/IMAGING (01/11/2025) Anatomical Region Laterality Modality Other us Provider Scanning Final Result from Last 3 Months Insurance [facility] ADVANTRA [facility] Care Teams Photogravure Press Operator Relationship Specialty Start Date End Date Geovanni Ellis DO [facility] - General 03/27/18
--- OUTSIDE RECORDS SUMMARY | 2025-01-27 12:03 | XMS_ITS | Clinical Summary ---
Author Organization [facility] Address [address] [facility] [place] [address] Care Team Providers Care Levelman Name Role Phone Unavailable Primary Care Provider Unavailabl e Source Comments [facility],non-owned Affiliates and Associated Physician Practices is amultiple site organization consisting of ambulatory clinics and hospital sitesin [place], [place], [place] and [place]. This disclosure is being madepursuant to the Care Everywhere program and may not contain all information available regarding this patient. Last updated [email or web address] [facility] Allergies No known active allergies Medications * [...] Department Care Team Description 12/09/2024 1:30 PM GRANITE FABRICATOR - 12/09/2024 3:10 PM GRANITE FABRICATOR Surgery [facility] [address] [place] [id number] Procedure, Nursing G_I GASTRIC MOTILITY STUDY 12/09/2024 12:17 PM GRANITE FABRICATOR - 12/09/2024 2:50 PM GRANITE FABRICATOR Hospital Encounter [facility] [address] [place] [id number] Antwon Lewis MD Surgery General Discharge Disposition: Home or Self Care 12/09/2024 Travel 11/09/2024 Telephone [facility] [address] [place] [address] Ezequiel Delgado, RN Scheduling Outreach [...] 1-dose 75+ series) 2014 COVID-19 VACCINE ( season) 2024 DEPRESSION SCREENING 11/10/2024 MEDICARE AWV [...] complete this topic MENINGOCOCCAL (Group B) VACCINE SHARED DECISION-MAKING Aged Out No longer eligible based on patient's age to complete this topic MENINGOCOCCAL GROUPS A/C/Y/W VACCINE Aged Out No longer eligible based on patient's age to complete this topic Procedures Procedure Name Priority Date/Time Associated Diagnosis Comments ME ESOPHAGUS MOTILITY STUDY 12/09/2024 1:28 PM GRANITE FABRICATOR History of Walter fundoplication from Last 3 Months Rosalba Paz Personal/Family Self 1940
== END 2025-01-27 11:03 | disposition home or self-care (01) ==
PROVIDERS: PCP Clinical Nurse Specialist; Visit Provider Surgery
DX: D72.829 Elevated white blood cell count, unspecified (principal); E87.6 Hypokalemia
CPT/HCPCS: 36415; 80048; 85025

== ENCOUNTER 2025-02-07 16:30 | Outpatient (CLI) | payer MEDICARE, SELFPAY ==
[2025-02-07 16:57] LABS: Basophils Absolute Auto 0.1 K/mm3 (0.0-0.1); Basophils Percent Auto 0.5 % (0.2-1.2); Eosinophils Absolute Auto 0.4 K/mm3 (0-0.3); Eosinophils Percent Auto 3.6 % (0-4.4); Hematocrit 36.2 % (37.0-47.0); Hemoglobin 11.2 g/dL (12.0-15.0); Immature Granulocyte Absolute 0.07 K/mm3 (0.00-0.031); Immature Granulocyte Percent A 0.7 % (0-0.5); Lymphocytes Absolute Auto 1.63 K/mm3 (0.9-3.2); Lymphocytes Percent Auto 16.2 % (18.3-44.2); Mean Corpuscular HGB Conc 30.9 g/dl (32-36); Mean Corpuscular Volume 97.1 fl (80-100); Monocytes Absolute Auto 0.8 K/mm3 (0.1-0.6); Monocytes Percent Auto 8.3 % (2.6-8.5); Neutrophils Absolute Auto 7.1 K/mm3 (1.3-6.7); Neutrophils Percent Auto 70.7 % (45.5-73.1); Platelet Count Result 307 k/mm3 (150-375); Red Blood Count 3.73 M/mm3 (4.2-5.4); Red Cell Distribution Width 13.7 % (11.5-14.5); White Blood Count 10.1 K/mm3 (4.5-10.0)
--- OUTSIDE RECORDS SUMMARY | 2025-02-07 17:35 | XMS_ITS | Referral Summary ---
Author Organization [facility] Address [address] [place] [address] Care Team Providers Care Per Assessment Nurse Name Role Phone Geovanni Ellis DO Primary Care Provider +1- [phone] Encounters Date Type Department Care Team Description 01/11/2025 Orders Only [facility] Information Management [address] [place] [address] Scanning, Provider from Last 3 Months Allergies [...] Comments Blood Pressure 133/85 09/24/2024 9:29 AM INSPECTOR INTEGRATED CIRCUITS Pulse 89 09/24/2024 9:29 AM INSPECTOR INTEGRATED CIRCUITS Temperature 36.1 C (97 F) 09/24/2024 9:29 AM INSPECTOR INTEGRATED CIRCUITS Respiratory Rate 16 09/24/2024 9:29 AM INSPECTOR INTEGRATED CIRCUITS Oxygen Saturation 98% 09/24/2024 9:29 AM INSPECTOR INTEGRATED CIRCUITS Inhaled Oxygen Concentration - - Weight 72.4 kg (159 lb 9.6 oz) 09/24/2024 9:29 A M INSPECTOR INTEGRATED CIRCUITS Height 165.1 cm (5' 5 ) 09/24/2024 9:29 AM INSPECTOR INTEGRATED CIRCUITS Body Mass Index 26.56 09/24/2024 9:29 AM INSPECTOR INTEGRATED CIRCUITS Plan of Treatment Not on file Procedures Procedure Name Priority Date/Time Associated Diagnosis Comments SCAN - RADIOLOGY/IMAGING 01/11/2025 from Last 3 Months Results * SCAN - RADIOLOGY/IMAGING (01/11/2025) Anatomical Region Laterality Modality Other us Provider Scanning Final Result from Last 3 Months Insurance [facility] ADVANTRA [facility] Care Teams Per Assessment Nurse Relationship Specialty Start Date End Date Geovanni Ellis DO [facility] - General 03/27/18
--- OUTSIDE RECORDS SUMMARY | 2025-02-07 17:35 | XMS_ITS | Clinical Summary ---
Author Organization [facility] Address [address] [place] [address] Care Team Providers Care Diamond Die Polisher Name Role Phone Geovanni Ellis DO Primary Care Provider +1- [phone] Allergies No known active allergies Medications meloxicam [...] Department Care Team Description 01/11/2025 Orders Only [facility] [place] Information Management [address] [place] [address] Scanning, Provider from Last 3 Months Immunizations [...] Comments Blood Pressure 133/85 09/24/2024 9:29 AM PRODUCT MARKETING PROGRAMS MANAGER Pulse 89 09/24/2024 9:29 AM PRODUCT MARKETING PROGRAMS MANAGER Temperature 36.1 C (97 F) 09/24/2024 9:29 AM PRODUCT MARKETING PROGRAMS MANAGER Respiratory Rate 16 09/24/2024 9:29 AM PRODUCT MARKETING PROGRAMS MANAGER Oxygen Saturation 98% 09/24/2024 9:29 AM PRODUCT MARKETING PROGRAMS MANAGER Inhaled Oxygen Concentration - - Weight 72.4 kg (159 lb 9.6 oz) 09/24/2024 9:29 A M PRODUCT MARKETING PROGRAMS MANAGER Height 165.1 cm (5' 5 ) 09/24/2024 9:29 AM PRODUCT MARKETING PROGRAMS MANAGER Body Mass Index 26.56 09/24/2024 9:29 AM PRODUCT MARKETING PROGRAMS MANAGER Plan of Treatment Health Maintenance Due Date [...] Final Result from Last 3 Months Insurance [facility] AETNA [facility] ADVANTRA Care Teams Diamond Die Polisher Relationship Specialty Start Date End Date Geovanni Ellis DO PCP - General 03/27/18
--- OUTSIDE RECORDS SUMMARY | 2025-02-07 17:35 | XMS_ITS | Clinical Summary ---
Author Organization [facility] Address [address] [place] [address] Care Team Providers Care Assistant Speech Language Pathologist Name Role Phone Unavailable Primary Care Provider [...] Documents on File Type Date Recorded Patient Diet Attendant Expl anation Advance Directives and Living Will 05/03/2017 12:00 AM ADVANCED DIRECTIVES
--- OUTSIDE RECORDS SUMMARY | 2025-02-07 17:35 | XMS_ITS | Clinical Summary ---
Author Organization [facility] [employer] Address [address] [facility] [place] [address] Care Team Providers Care Front Edger Name Role Phone Unavailable Primary Care Provider Unavailabl e Source Comments [facility] [employer]non-owned Affiliates and Associated Physician Practices is amultiple site organization consisting of ambulatory clinics and hospital sitesin [place], [place], [place] and [place]. This disclosure is being madepursuant to the Care Everywhere program and may not contain all information available regarding this patient. Last updated 18.[employer] Allergies No known active allergies Medications * [...] Department Care Team Description 12/09/2024 1:30 PM PLATE PUT IN WORKER - 12/09/2024 3:10 PM PLATE PUT IN WORKER Surgery [facility] [address] [place] [phone] Procedure, Nursing G_I GASTRIC MOTILITY STUDY 12/09/2024 12:17 PM PLATE PUT IN WORKER - 12/09/2024 2:50 PM PLATE PUT IN WORKER Hospital Encounter [facility] [address] [place] [phone] Antwon Lewis MD Surgery General Discharge Disposition: Home or Self Care 12/09/2024 Travel 11/09/2024 Telephone [facility] [address] [place] [address] Ezequiel Delgado, RN Scheduling Outreach [...] Procedure Name Priority Date/Time Associated Diagnosis Comments CT ESOPHAGUS MOTILITY STUDY 12/09/2024 1:28 PM PLATE PUT IN WORKER History of Walter fundoplication from Last 3 Months Rosalba Paz Personal/Family Self 1940
== END 2025-02-07 16:31 | disposition home or self-care (01) ==
LOC: ANHLAB 16:31
PROVIDERS: PCP Clinical Nurse Specialist; Visit Provider Surgery
DX: D64.9 Anemia, unspecified (principal)
CPT/HCPCS: 36415; 85025

== ENCOUNTER 2025-03-03 12:08 | Outpatient (CLI) | payer MEDICARE, SELFPAY ==
--- OUTSIDE RECORDS SUMMARY | 2025-03-03 13:22 | XMS_ITS | Referral Summary ---
Author Organization [facility] Address [address] [place] [address] Care Team Providers Care Weblogic Administrator Name Role Phone Geovanni Ellis DO Primary Care Provider +1- [phone] Encounters Date Type Department Care Team Description 01/11/2025 Orders Only [facility] Health Information Management [address] [place] [address] Scanning, Provider from Last 3 Months Allergies [...] Comments Blood Pressure 133/85 09/24/2024 9:29 AM NURSERY HELPER Pulse 89 09/24/2024 9:29 AM NURSERY HELPER Temperature 36.1 C (97 F) 09/24/2024 9:29 AM NURSERY HELPER Respiratory Rate 16 09/24/2024 9:29 AM NURSERY HELPER Oxygen Saturation 98% 09/24/2024 9:29 AM NURSERY HELPER Inhaled Oxygen Concentration - - Weight 72.4 kg (159 lb 9.6 oz) 09/24/2024 9:29 A M NURSERY HELPER Height 165.1 cm (5' 5 ) 09/24/2024 9:29 AM NURSERY HELPER Body Mass Index 26.56 09/24/2024 9:29 AM NURSERY HELPER Plan of Treatment Not on file Procedures Procedure Name Priority Date/Time Associated Diagnosis Comments SCAN - RADIOLOGY/IMAGING 01/11/2025 from Last 3 Months Results * SCAN - RADIOLOGY/IMAGING (01/11/2025) Anatomical Region Laterality Modality Other us Provider Scanning Final Result from Last 3 Months Insurance [facility] [employer] ADVANTRA [facility] Care Teams Weblogic Administrator Relationship Specialty Start Date End Date Geovanni Ellis DO [facility] - General 03/27/18
--- OUTSIDE RECORDS SUMMARY | 2025-03-03 13:22 | XMS_ITS | Clinical Summary ---
Author Organization [facility] Address [address] [place] [address] Care Team Providers Care Foxing Closer Name Role Phone Unavailable Primary Care Provider Unavailabl e Source Comments [facility],non-owned Affiliates and Associated Physician Practices is amultiple site organization consisting of ambulatory clinics and hospital sitesin [place], [place], [place] and [place]. This disclosure is being madepursuant to the Care Everywhere program and may not contain all information available regarding this patient. Last updated 18.[employer] Allergies No known active allergies Medications * Be aware that medications may not be up to date on this document. Alwaysverify current medications with the patient. esomeprazole (NexIUM) 40 MG capsule Take 1 (one) capsule by mouth as needed Active metoprolol succinate XL 24hr (Toprol XL) 25 MG tablet Take 0.5 (one-half) tablet by mouth once daily 09/02/2024 Active simvastatin (Zocor) 10 MG tablet Take 1 (one) tablet by mouth at bedtime 03/19/2024 Active Encounters Date Type Department Care Team Description 12/09/2024 1:30 PM METEOROLOGIST IN CHARGE - 12/09/2024 3:10 PM METEOROLOGIST IN CHARGE Surgery [facility] [address] [place] [phone] Procedure, Nursing G_I GASTRIC MOTILITY STUDY 12/09/2024 12:17 PM METEOROLOGIST IN CHARGE - 12/09/2024 2:50 PM METEOROLOGIST IN CHARGE Hospital Encounter [facility] [address] [place] [phone] Antwon Lewis MD Surgery General Discharge Disposition: Home or Self Care 12/09/2024 Travel from Last 3 Months Immunizations Immunization Administration Dates Next Due INFLUENZA VACCINE, HIGH-DOSE , QUADR. (FLUZONE HIGH-DOSE QUADRIVALENT; 65Y+), 0.7 ML (HD-IIV4) 08/19/2019 Social History Tobacco Use Types Packs/Day Years Used Date Smoking Tobacco: Never Smokeless Tobacco: Never Tobacco Cessation:Counseling Given: Not Answered Alcohol Use Standard Drinks/Week Comments Yes 0 (1 standard drink = 0.6 oz pur e alcohol) rare Comments Unknown Sex and Gender Information Value Date Recorded Sex Assigned at Not on file Legal Sex Female 7:25 PM METEOROLOGIST IN CHARGE Gender Identity Not on file Sexual Orientation [...] Procedure Name Priority Date/Time Associated Diagnosis Comments [place] ESOPHAGUS MOTILITY STUDY 12/09/2024 1:28 PM METEOROLOGIST IN CHARGE History of Walter fundoplication from Last 3 Months Insurance [facility] AETNA MEDICARE ADV
--- OUTSIDE RECORDS SUMMARY | 2025-03-03 13:22 | XMS_ITS | Clinical Summary ---
Author Organization [facility] Address [address] [place] [address] Care Team Providers Care Field Service Analyst Name Role Phone Unavailable Primary Care Provider [...] Td Vaccines ( 1 - Tdap) 1958 Pneumococcal Vaccine: 50+ Ye ars (1 of 1 - PCV) 1989 Zoster Vaccines (1 of 2) 1989 RSV Immunization or 60+ Years (1 - 1-dose 75+ series) 2014 COVID-19 Vaccine ( - 2023-2 5 season) 2024 Meningococcal B Vaccine Aged Out No l onger eligible based on patient's age to complete this topic Meningococcal Vaccine Aged Out No jeniffer william eligible based on patient's age to complete this topic RSV Immunizations Under 20 Months Aged Out No longer eligible based on patient's age to complete this topic Advance Directives Documents on File Type Date Recorded Patient Cutting Machine Tender Helper Expl anation Advance Directives and Living Will 05/03/2017 12:00 AM ADVANCED DIRECTIVES
--- OUTSIDE RECORDS SUMMARY | 2025-03-03 13:22 | XMS_ITS | Clinical Summary ---
Author Organization [facility] Address [address] [place] [address] Care Team Providers Care Road Advisor Name Role Phone Geovanni Ellis DO Primary Care Provider +1- [phone] Allergies No known active allergies Medications meloxicam [...] Department Care Team Description 01/11/2025 Orders Only [facility] Health Information Management [address] [place] [address] Scanning, Provider from Last 3 Months Immunizations [...] Comments Blood Pressure 133/85 09/24/2024 9:29 AM BAND BUILDER Pulse 89 09/24/2024 9:29 AM BAND BUILDER Temperature 36.1 C (97 F) 09/24/2024 9:29 AM BAND BUILDER Respiratory Rate 16 09/24/2024 9:29 AM BAND BUILDER Oxygen Saturation 98% 09/24/2024 9:29 AM BAND BUILDER Inhaled Oxygen Concentration - - Weight 72.4 kg (159 lb 9.6 oz) 09/24/2024 9:29 A M BAND BUILDER Height 165.1 cm (5' 5 ) 09/24/2024 9:29 AM BAND BUILDER Body Mass Index 26.56 09/24/2024 9:29 AM BAND BUILDER Plan of Treatment Health Maintenance Due Date [...] Final Result from Last 3 Months Insurance [facility] ADVANT [facility] ADVANTRA AETNA [facility] ADVANTRA Care Teams Road Advisor Relationship Specialty Start Date End Date Geovanni Ellis DO PCP - General 03/27/18
[2025-03-03 13:26] LABS: Basophils Absolute Auto 0.1 K/mm3 (0.0-0.1); Basophils Percent Auto 0.6 % (0.2-1.2); Eosinophils Absolute Auto 0.2 K/mm3 (0-0.3); Hematocrit 40.1 % (37.0-47.0); Hemoglobin 12.4 g/dL (12.0-15.0); Immature Granulocyte Absolute 0.03 K/mm3 (0.00-0.031); Immature Granulocyte Percent A 0.4 % (0-0.5); Lymphocytes Absolute Auto 1.82 K/mm3 (0.9-3.2); Lymphocytes Percent Auto 22.6 % (18.3-44.2); Mean Corpuscular HGB Conc 30.9 g/dl (32-36); Mean Corpuscular Hemoglobin 30.5 pg (26-34); Mean Corpuscular Volume 98.8 fl (80-100); Mean Platelet Volume 11.3 fl (7.4-10.4); Monocytes Absolute Auto 0.7 K/mm3 (0.1-0.6); Monocytes Percent Auto 8.4 % (2.6-8.5); Neutrophils Absolute Auto 5.3 K/mm3 (1.3-6.7); Platelet Count Result 268 k/mm3 (150-375); Red Blood Count 4.06 M/mm3 (4.2-5.4); Red Cell Distribution Width 14.7 % (11.5-14.5); White Blood Count 8.1 K/mm3 (4.5-10.0)
== END 2025-03-03 12:09 | disposition home or self-care (01) ==
LOC: ANHLAB 12:11
PROVIDERS: PCP Clinical Nurse Specialist; Visit Provider Surgery
DX: D64.9 Anemia, unspecified (principal)
CPT/HCPCS: 36415; 85025